=== PATIENT | female | born 1950 | race Caucasian/White ===

== ENCOUNTER 2020-03-06 19:53 | Emergency (ER) | payer MEDICARE, OTHER, SELFPAY ==
[2020-03-06 20:11] VITALS: BP 129/72; PULSE 71; RESP 16; TEMP 37.2; O2SAT 97; BMI 27.4
--- NOTE | 2020-03-06 20:29 | W.ED.FEMALGU ---
HPI - Female Genitourinary General: Chief complaint: General Medical Stated complaint: possible uti Time Seen by Provider: 03/06/20 20:09 Source: patient Mode of arrival: ambulatory Limitations: no limitations History of Present Illness: HPI Narrative: Patient is a 69-year-old female who presents to ED today with a complaint of dysuria over the past 8 months. Patient also complains of some lower pelvic pain that again has been present over the past same period of time. She has never sought any form of evaluation for this. Patient denies hematuria, urinary urgency or frequency. She is not having any flank pain or fevers. She denies vaginal discharge. When asked about vaginal discharge she tells me she is not sure as she often does not wear underwear so cannot tell. 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 She has not noticed any vaginal lesions. Patient is not sexually active. During my examination she gets very tearful and tells me she lost her 2 months ago and has had a hard time dealing with his . She reports she is not seeking help or inpatient psychiatric hospitalization. She tells me she is not suicidal or homicidal. Associated symptoms: Reports vaginal discharge (unknown); Deny abdominal pain, headache(s) or nausea Review of Systems Const: Denies: fever(s) or chills Card: Denies: chest pain Resp: Denies: dyspnea GI: Denies: abdominal pain, nausea, vomiting, diarrhea, rectal swelling, change in stool character, hematochezia, melena or white/light colored stool : Reports: dysuria, urinary urgency, vaginal odor (unknown), vaginal discharge (unknown) and pelvic pain; Denies: flank pain, difficulty voiding, urinary frequency, urinary hesitancy, dribbling, oliguria, urinary incontinence, genital lesions, genital pruritis or vaginal bleeding Musc: Denies: neck pain, back pain, extremity pain, extremity swelling, joint pain or joint swelling Skin/Breast: Denies: rash Neuro: Denies: headache(s), numbness in extremities, weakness in extremities or sensory changes Psych: Reports: anxiety, depression and hopelessness; Denies: mood swings, paranoia, visual hallucinations, auditory hallucinations, suicidal ideation or homicidal ideation PFS ED PFSH: Social History Smoking and tobacco status: never smoked Physical Exam Const: COMMON NORMALS: no acute distress, average body habitus, patient oriented x3, no limitations, healthy appearing, alert and well nourished ORIENTATION/CONSCIOUSNESS: Yes awake, Yes oriented to person, Yes oriented to place and Yes oriented to time OTHER: odorous/several flies around her-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 HENMT: COMMON NORMALS: normocephalic and atraumatic HEAD & SCALP: normocephalic and atraumatic Resp: COMMON NORMALS: normal respiratory effort and clear to auscultation bilaterally AUSCULTATION: clear to auscultation bilaterally Cardio: COMMON NORMALS: regular rate and regular rhythm RATE: regular rate RHYTHM: regular rhythm GI: COMMON NORMALS: Normal to inspection, nondistended, normoactive bowel sounds present, Soft to palpation, non-tender, No hepatosplenomegaly present and no masses PALPATION: Yes Soft to palpation and Yes No hepatosplenomegaly present : COMMON NORMALS: Yes no CVA tenderness, Yes normal external appearance and Yes normal appearance of the vagina BLADDER/KIDNEY EXAM: Yes no CVA tenderness EXTERNAL FEMALE EXAM: Yes normal appearance of the urethra OTHER: speculum was barely able to be inserted into vaginal canal until patient instructed me to stop due to discomfort; I did visualize what appeared to be abnormal tissue present to superior portion of canal and cervix had abnormal appearance as well however again I was only able to visualize for 1-2 seconds before patient instructed me to remove instruments; bimanual not performed; swabs were not able to be obtained; she refused in and out cath Back/Pelvis: COMMON NORMALS: no CVA tenderness Extremity: COMMON NORMALS: normal to inspection GENERAL: Yes normal exam except as noted Neuro: ANGELO COMA SCALE: document GCS findings Angelo coma scale eye opening: Spontaneous Angelo coma scale verbal response: Orientated [place] coma scale motor response: Obey commands Angelo coma scale total score: 15 COMMON NORMALS: patient oriented x3 SENSORIUM/ORIENTATION: Yes alert, Yes oriented to person, Yes oriented to place and Yes oriented to time Psych: COMMON NORMALS: mental status grossly normal, Normal thought process present, cooperative, speech normal, activity/motor behavior normal, denies hallucinations, denies homicidal ideation and denies suicidal ideation ATTITUDE: Yes calm ACTIVITY/MOTOR BEHAVIOR: Yes appropriate eye contact SPEECH: Yes normal speech MOOD & AFFECT: Yes depressed mood, Yes sad and Yes Other affect and mood findings present (tearful at times) THOUGHT PROCESS: Normal thought process present THOUGHT CONTENT: Yes Normal thought content present ATTENTION/CONCENTRATION: Yes attention grossly intact and Yes concentration grossly intact MEMORY/COGNITION: Yes memory grossly intact and Yes cognition grossly intact INSIGHT: Good insight present (Psych) JUDGEMENT: Good judgement present (Psych) Skin: COMMON NORMALS: no rashes or lesions noted GENERAL SKIN EXAM: no rashes or lesions noted Course Vital Signs: Vital signs: Vital Signs Temperature 99.0 F 03/06/20 20:11 Pulse Rate 71 03/06/20 20:11 Respiratory Rate 16 03/06/20 20:11 Blood Pressure 129/72 03/06/20 20:11 Pulse Oximetry 97 03/06/20 20:11 MDM - Female MDM Narrative: Medical decision making narrative: patient tried to give urine sample but only 1ml was obtained and could not be ran; she adamantly refuses in and out cath several times; she was not very cooperative for recurrent attempts to gain a urine specimen; she refused for pelvic exam to be completed due to discomfort; she frequently states she is under too much stress and these tests/procedures are just too much right now ; I offered her several times for admission to [facility] but patient refuses; I will have set her up with [facility] for therapy/counseling for the grief she is having with her 's ; 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 Follow up with gynecology regarding your pelvic exam. Follow [facility] with [facility] about therapy regarding the of your . Return to the ED immediately for any thoughts of wanting to harm yourself. Discharge Date/Time: 03/06/20 21:37 Coding Level of Care Code ED Quality Assurance Technician for Gabriele Fwd Exam Comprehensive
--- NOTE | 2020-03-06 21:23 | PC.NURSE ---
pt is very tearful and has possible flight of ideas. unable to continue a train of thought and appears to have difficulty completing basic tasks such as putting on shoes with out becoming distracted. refused in and out catheter for urine sample. pts states her recently and she [place]. pt has been putting of seeking care for her perineum pain for the past 8 months.
--- NOTE | 2020-03-07 10:50 | DCPLANNER ---
utilities manager had message to schedule a follow up appointment for patient with [facility] and [facility]. utilities manager called [facility], gave clinic patients information, was told that it would be printed and reviewed. Clinic will call patient with appointment information. utilities manager called patient, informed her that a referral to [facility] had been made for patient, and asked her if she had ever been seen at [facility]. Patient stated that she has not been seen at [facility] in the past. utilities manager told patient how to go about starting services at [facility]. utilities manager explained that patient can go to [facility] and complete a walk in assessment, and gave patient the phone number to [facility].
--- NOTE | 2020-03-13 08:50 | DCPLANNER ---
Patient has a follow up appointment scheduled with , March 27, 2020 at 2:[address] Rucker. Clinic will call patient with appointment information.
--- NOTE | 2020-04-01 11:23 | DCPLANNER ---
Patient did attend follow up appointment scheduled with [facility].
== END 2020-03-06 21:37 | disposition home or self-care (01) ==
PROVIDERS: Emergency Provider Physician Assistant
DX: R30.0 Dysuria (principal); F43.20 Adjustment disorder, unspecified
CPT/HCPCS: 12345; 99281; 99282; E0352

== ENCOUNTER → 2020-03-17 14:01 | Outpatient (BNVA) | payer MEDICARE, OTHER, SELFPAY | PROVIDERS: PCP Family Medicine; Visit Provider Family Medicine | DX: F43.20 Adjustment disorder, unspecified (principal); N39.3 Stress incontinence (female) (male) | CPT/HCPCS: 81000 ==

== ENCOUNTER → 2020-03-19 11:08 | Outpatient (BNVA) | payer MEDICARE, SELFPAY | PROVIDERS: PCP Family Medicine; Visit Provider Family Medicine | DX: R10.2 Pelvic and perineal pain (principal); N89.8 Other specified noninflammatory disorders of vagina | CPT/HCPCS: 84450; 86592; 87070; 87077; 87186; 87806 ==

== ENCOUNTER → 2020-04-23 10:14 | Outpatient (BNVA) | payer MEDICARE, OTHER, SELFPAY | PROVIDERS: PCP Family Medicine; Visit Provider Family Medicine | DX: Z13.6 Encounter for screening for cardiovascular disorders (principal); E03.9 Hypothyroidism, unspecified | CPT/HCPCS: 80053; 80061; 82607; 82746; 84443; 85025 ==

== ENCOUNTER 2021-07-30 13:53 | Emergency (ER) | payer MEDICARE, OTHER, SELFPAY ==
[2021-07-30] VITALS (7 sets, daily range): BP systolic 103–121; BP diastolic 57–69; PULSE 64–95; RESP 18–24; TEMP 37.5; O2SAT 92–98; BMI 25.7
--- NOTE | 2021-07-30 16:28 | ED_ITS ---
HPI - SOB/Dyspnea General: Chief Complaint: Shortness of Breath/Dyspnea Stated Complaint: Cough, Weak, Difficulty Breathing, MAGANA Time Seen by Provider: 07/30/21 16:28 History of Present Illness: HPI Narrative: Ms. Harrison is a 71-year-old lady without significant past medical history presents emergency department due to respiratory symptoms. Symptom onset was approximately 1 week ago. Initially she endorses congestion, generalized malaise, and mild cough however symptoms have gradually worsened since that time. She now notes marked symptoms that are severe with activity. She has night sweats, fevers, fatigue and shortness of breath on exertion. She has chest aching with exertion which occurred earlier today. Review of Systems General: Reports: 10 or more systems reviewed and unremarkable except in HPI and below PFSH ED PFSH: Medical History (Updated 07/30/21 @ 21:04 by Osmin Avila MD) Hypothyroid Surgical History H/O tubal ligation History of mandibular surgery Family History Sister Breast cancer, Onset Age: 35 Thyroid condition Mother CAD (coronary artery disease) Stroke Thyroid condition Family/Other Breast cancer, Onset Age: 60 maternal aunt maternal great aunt Grandmother Breast cancer, Onset Age: 98 maternal Hypertension maternal Father Diabetes Denies family history of Clotting disorder Hyperlipidemia Anesthesia complication Bleeding disorder Social History Smoking and tobacco status: never smoked Alcohol intake: current Alcohol intake frequency: holidays/special occasions only Alcohol type: beer Physical Exam Narrative: EXAM NARRATIVE: GENERAL/CONSTITUTIONAL -mildly ill-appearing. No acute distress. Eyes - PERRL, no conjunctival injection ENMT - poor dentition, areas of localized increased erythema however no definitive fluid collection or fluctuance identified. Atraumatic external nose and ears. Moist mucous membranes NECK - supple. trachea midline CARDIOVASCULAR - regular rate and rhythm. RESPIRATORY -coarse breath sounds throughout. Mild tachypnea without significant respiratory distress. ABDOMEN/GI - Nontender/Nondistended. MSK - Extremities without obvious deformity or tenderness to palpation SKIN - Warm, Dry NEURO - alert and appropriately oriented. Moves all extremities equally. Course ED course: - Patient was seen and evaluated by me at bedside - Patient placed on cardiac monitors, IV access obtained - Initial evaluation notable for mildly ill appearance, no acute distress. -Symptom treatment ordered - Labs notable for no leukocytosis, near baseline anemia which is macrocytic. No significant metabolic abnormalities to explain patient's symptoms. Procalcitonin negative. Flu and Covid negative. - Imaging notable for no acute finding noted on chest x-ray, patient's complaint of symptoms is disproportionate to finding and given clinical assessment additional imaging warranted. CTA also negative. - Upon serial reexamination after treatment the patient was improved - Based on patient history, evaluation, labs, and imaging as interpreted the most likely cause of the patient's condition is unclear. She does have what appears to be infected dental caries without abscess drainable fluid collections which will be treated with antibiotics. - The results of ED evaluation were discussed with the patient including prescriptions and/or symptomatic cares (if applicable) including appropriate and responsible use, followup plan, and return precautions. The patient verbalized understanding and felt safe for discharge. - Patient discharged in satisfactory condition. Vital Signs: Vital signs: Vital Signs Temperature 99.5 F 07/30/21 14:13 Pulse Rate 86 07/30/21 21:26 Respiratory Rate 22 H 07/30/21 21:26 Blood Pressure 121/69 07/30/21 21:26 Pulse Oximetry 93 07/30/21 21:26 MDM - SOB/Dyspnea Medical Records: Attestation: I reviewed the patient's medical records. Lab Data: Attestation: I reviewed the patient's lab results. Labs: Lab Results 07/30/21 07/30/21 07/30/21 17:14 17:14 17:25 WBC 5.3 10^3/uL 10^3/ uL (4.0-10.0) RBC 2.73 10^6/uL L 10 ^6/uL (4.1-5.3) Hgb 9.9 g/dL L g/dL (11.5-15.3) Hct 30.2 % L % (37.0-47.0) MCV 110.6 fl H fl (81-99) MCH 36.3 pg H pg (28.0-34.0) MCHC 32.8 g/dL g/dL (30.0-36.0) RDW 16.0 % H % (12.1-15.1) Plt Count 295 10^3/cmm 10^3 /cmm (130-400) MPV 10.7 fL H fL (7.4-10.4) Neut % (Auto) 74.3 % % Lymph % (Auto) 15.3 % % [place] % (Auto) 8.1 % % Eos % (Auto) 1.1 % % Baso % (Auto) 0.6 % % Neut # (Auto) 3.92 10^3/uL 10^3 /uL (1.8-7.7) Lymph # (Auto) 0.8 10^3/uL 10^3/ uL (0.8-4.8) [place] # (Auto) 0.4 10^3/uL 10^3/ uL (0.2-0.9) Eos # (Auto) 0.1 10^3/uL 10^3/ uL (0.0-0.8) Baso # (Auto) 0.0 10^3/uL 10^3/ uL (0.0-0.1) Nucleated RBC % (a uto) 0 % % Nucleated RBCs # 0.0 /100WBC /100W BC Sodium Potassium Chloride Carbon Dioxide Anion Gap BUN Creatinine GFR Calculation Glucose Calculated Osmolal ity Lactic Acid Calcium Total Bilirubin AST ALT Alkaline Phosphata se Troponin T Baselin e Troponin T 120 Min [place] Delta Troponin T C-Reactive Protein NT-Pro-B Natriuret Pep Total Protein Albumin Globulin Procalcitonin TSH Nasal/Oral COVID-1 9 PCR Not detected Influenza Type A A g Negative (Negative) Influenza Type B A g Negative (Negative) 07/30/21 07/30/21 07/30/21 17:25 17:25 17:25 WBC RBC Hgb Hct MCV MCH MCHC RDW Plt Count MPV Neut % (Auto) Lymph % (Auto) [place] % (Auto) Eos % (Auto) Baso % (Auto) Neut # (Auto) Lymph # (Auto) [place] # (Auto) Eos # (Auto) Baso # (Auto) Nucleated RBC % (a uto) Nucleated RBCs # Sodium 137 mmol/L mmol/L (136-145) Potassium 4.2 mmol/L mmol/L (3.5-5.1) Chloride 102 mmol/L mmol/L (98-107) Carbon Dioxide 24 mmol/L mmol/L (22-29) Anion Gap 15.2 (5-19) BUN 9 mg/dL mg/dL (8-23) Creatinine 0.9 mg/dL mg/dL (0.5-0.9) GFR Calculation 62.1 mL/min L mL/ min (90-130) Glucose 111 mg/dL mg/dL (65-115) Calculated Osmolal ity 283 mOsm/kg L mOs m/kg (285-295) Lactic Acid 0.7 mmol/L mmol/L (0.5-2.2) Calcium 8.6 mg/dL mg/dL (8.5-10.5) Total Bilirubin 0.7 mg/dL mg/dL (0.15-1.2) AST 14 U/L U/L (0-32) ALT 12 U/L U/L (0-33) Alkaline Phosphata se 59 IU/L IU/L (35-105) Troponin T Baselin e 10 ng/L ng/L (0-10) Troponin T 120 Min [place] Delta Troponin T C-Reactive Protein 1.0 mg/L mg/L (0.0-4.9) NT-Pro-B Natriuret Pep 197 pg/mL H pg/mL (0-125) Total Protein 6.3 g/dL L g/dL (6.6-8.7) Albumin 4.0 g/dL g/dL (3.5-5.2) Globulin 2.3 g/dL g/dL (1.3-4.6) Procalcitonin 0.12 ng/mL ng/mL (0-0.5) TSH 0.93 uIU/mL uIU/m L (0.27-4.20) Nasal/Oral COVID-1 9 PCR Influenza Type A A g Influenza Type B A g 07/30/21 20:01 WBC RBC Hgb Hct MCV MCH MCHC RDW Plt Count MPV Neut % (Auto) Lymph % (Auto) [place] % (Auto) Eos % (Auto) Baso % (Auto) Neut # (Auto) Lymph # (Auto) [place] # (Auto) Eos # (Auto) Baso # (Auto) Nucleated RBC % (a uto) Nucleated RBCs # Sodium Potassium Chloride Carbon Dioxide Anion Gap BUN Creatinine GFR Calculation Glucose Calculated Osmolal ity Lactic Acid Calcium Total Bilirubin AST ALT Alkaline Phosphata se Troponin T Baselin e Troponin T 120 Min [place] 9.53 ng/L ng/L (0-10) Delta Troponin T -0.47 ABS# L ABS# (0-10) C-Reactive Protein NT-Pro-B Natriuret Pep Total Protein Albumin Globulin Procalcitonin TSH Nasal/Oral COVID-1 9 PCR Influenza Type A A g Influenza Type B A g EKG Data^: EKG 1: Attestation: I personally reviewed and interpreted this EKG as follows: EKG Interpretation Date: 07/30/21 EKG interpretation time: 16:38 Interpretation: Twelve-lead EKG shows a regular rhythm at a rate of 100. AK interval 143, QRS duration 84, QTc 372. Normal axis. Interpretation: Sinus rhythm. EKG 2: Attestation: I personally reviewed and interpreted this EKG as follows: EKG Interpretation Date: 07/30/21 EKG interpretation time: 20:22 Interpretation: Twelve-lead EKG shows a regular rhythm at a rate of 90. AK interval 145, QRS duration 78, QTc 372. Normal axis. Interpretation: Sinus rhythm. Discharge Plan Discharge Patient Disposition: Home Clinical Impression: Shortness of breath, URI (upper respiratory infection), Dental caries Condition: Stable Prescriptions: New Augmentin 875-125 mg tablet 1 tab PO Q12H Qty: 14 RF: 0 No Action metronidazole 500 mg tablet 500 mg PO BID 14 Days Qty: 28 RF: 0 metronidazole [Flagyl] 500 mg tablet 500 mg PO BID 14 Days Qty: 28 RF: 0 ampicillin 500 mg capsule 500 mg PO QID 5 Days Qty: 20 RF: 0 levothyroxine [Synthroid] 50 mcg tablet 50 mcg PO DAILY Qty: 90 RF: 1 Discharge Orders: Discharge ED (Routine); Ordered 07/30/21 Ordered By: Osmin Avila Referrals: Maryjo Sylvester DO [Physician] - Discharge Diet: Usual diet Discharge Activity: Increase activity as tolerated Patient Instructions: Dental Caries (Cavities), Cold Symptoms (ED), Shortness of Breath (ED), Opioid Safety Activity Restrictions/Additional Instructions: Thank you for visiting the emergency department. You were seen and evaluated for shortness of breath and generalized malaise. The exact cause of your symptoms is unclear as labs were reassuring and imaging did not show any obvious cause. It is still possible that you have a viral syndrome. Additionally, given increased pain there may be small amounts of infection in your dental caries. You will be given a prescription for symptom management as well as antibiotics. Please follow-up with your primary care provider. Please do not combine the cough syrup with any other sedating medication, do not operate machinery or drive while under the influence of this, watch for side effects including WOODEN BOX MAKER depression. Return to emergency department for worsening symptoms or anything else that you are concerned about a feel needs emergency department evaluation. Coding Level of Care Code ED E Commerce Developer for Gabriele Fuchs
--- NOTE | 2021-07-30 16:38 | XRR_ITS ---
PROCEDURE INFORMATION: Exam: XR Chest Exam date and time: 07/30/2021 4:38 PM Age: 71 years old Clinical indication: Cough and shortness of breath; Additional info: SOB, cough TECHNIQUE: Imaging protocol: XR of the chest. Views: 1 view. Total images: 1 COMPARISON: No relevant prior studies available. FINDINGS: Lungs: No visible active interstitial or alveolar airspace disease. Suspected component of COPD/chronic bronchitis. Pleural spaces: No pleural effusion. No pneumothorax. Heart/Mediastinum: Cardiac structures and configuration with arteriosclerosis. Bones/joints: Unremarkable for age. XR/XR chest 1V portable [id number] IMPRESSION: Nonacute. Radiation Dose CTDIVOL = (mGy): DLP = (mGy-cm)
--- NOTE | 2021-07-30 16:39 | ECG_ITS ---
[facility] Test Date: 2021-07-30 Pat Name: Dina Harrison Department: Room: Gender: Female Dirt Supervisor: : 1950 Requested By: Osmin Avila Order Number: [id number] Indy MD: Magali Lou M.D. Measurements Intervals [place] Rate: 100 P: 73 MO: 143 QRS: 54 QRSD: 84 T: 70 QT: 315 QTc: 407 Interpretive Statements SINUS TACHYCARDIA ABNORMAL RHYTHM ECG No previous ECG available for comparison Electronically Signed On 07-30-2021 22:46:06 SALES TRAINER by Magali Lou M.D. [id number]
[2021-07-30] MEDS: sodium chloride 0.9% 1,000 ML 999 ML IV ×2 (17:10→20:35)
--- NOTE | 2021-07-30 17:19 | CTR_ITS ---
PROCEDURE INFORMATION: Exam: CTA Chest With Contrast Exam date and time: 07/30/2021 5:19 PM Age: 71 years old Clinical indication: Cough and shortness of breath; Additional info: Hypoxemia, SOB, chest pain TECHNIQUE: Imaging protocol: Computed tomographic angiography of the chest with contrast. 3D rendering (Not supervised by radiologist): MIP and/or 3D reconstructed images were created by the technologist. Total images: 880 Radiation optimization: All CT scans at this facility use at least one of these dose optimization techniques: automated exposure control; mA and/or kV adjustment per patient size (includes targeted exams where dose is matched to clinical indication); or iterative reconstruction. Contrast material: OMNI 350; Contrast volume: 62 ml; Contrast route: INTRAVENOUS (IV); COMPARISON: CR (CHEST, ) 07/30/2021 4:48 PM RADIATION DOSE METRICS: Total DLP (mGy-cm): 509.03 FINDINGS: Pulmonary arteries: No visible evidence of pulmonary embolism/pulmonary arterial thrombus. Aorta: The thoracic aorta is nonaneurysmal. No visible intimal flap or dissection. Mild arteriosclerosis. Lungs: No visible active interstitial or alveolar airspace disease. Minimal dependent atelectasis lingula. No visible significant restrictive or reactive airway disease. Pleural spaces: No pneumothorax. No pleural effusion. Heart: Cardiac size within normal limits. Left ventricular prominence. No visible pericardial effusion. No visible significant coronary artery disease. Lymph nodes: No visible active mediastinal or hilar lymphadenopathy. Diaphragm: Small hiatal hernia. Bones/joints: No visible active or acute osseous pathology. Mild scoliotic curvature. Age-appropriate mild degenerative disease of the spine. Soft tissues: Unremarkable. Other findings: Respiratory motion artifact. CT/CT angio chest PE protcl [id number] IMPRESSION: No visible evidence of pulmonary embolism/pulmonary arterial thrombus. Radiation Dose CTDIVOL = (mGy): DLP = 509.03 (mGy-cm)
[2021-07-30 17:54] LABS: Basophils % 0.6 %; Eosinophils # 0.1 10^3/uL (0.0-0.8); Eosinophils % 1.1 %; Hematocrit 30.2 % (37.0-47.0); Hemoglobin 9.9 g/dL (11.5-15.3); Lymphocytes # 0.8 10^3/uL (0.8-4.8); Lymphocytes % 15.3 %; Mean Corpuscular HGB Conc 32.8 g/dL (30.0-36.0); Mean Corpuscular Hemoglobin 36.3 pg (28.0-34.0); Mean Corpuscular Volume 110.6 fl (81-99); Mean Platelet Volume 10.7 fL (7.4-10.4); Monocytes # 0.4 10^3/uL (0.2-0.9); Monocytes % 8.1 %; Neutrophils # 3.92 10^3/uL (1.8-7.7); Neutrophils % 74.3 %; Nucleated Red Blood Cells % 0 %; Platelet Count 295 10^3/cmm (130-400); Red Blood Count 2.73 10^6/uL (4.1-5.3); White Blood Count 5.3 10^3/uL (4.0-10.0)
[2021-07-30 17:56] LABS: Influenza A by IFA Negative (Negative); Influenza B by IFA Negative (Negative)
[2021-07-30 18:25] LABS: Troponin(5th) Baseline 10 ng/L (0-10)
[2021-07-30 18:31] LABS: NT Pro B Type Natriuretic Pept 197 pg/mL (0-125); Procalcitonin 0.12 ng/mL (0-0.5); Thyroid Stimulating Hormone 0.93 uIU/mL (0.27-4.20)
[2021-07-30 18:42] LABS: Alanine Aminotransferase 12 U/L (0-33); Alkaline Phosphatase 59 IU/L (35-105); Anion Gap 15.2 (5-19); Aspartate Amino Transferase 14 U/L (0-32); Blood Urea Nitrogen 9 mg/dL (8-23); Calcium 8.6 mg/dL (8.5-10.5); Carbon Dioxide 24 mmol/L (22-29); Chloride 102 mmol/L (98-107); Globulin 2.3 g/dL (1.3-4.6); Glomerular Filtration Rate 62.1 mL/min (90-130); Glucose 111 mg/dL (65-115); Osmolality Calculated 283 mOsm/kg (285-295); Potassium 4.2 mmol/L (3.5-5.1); Sodium 137 mmol/L (136-145); Total Bilirubin 0.7 mg/dL (0.15-1.2); Total Protein 6.3 g/dL (6.6-8.7)
[2021-07-30 18:45] LABS: Lactic Sepsis W/Reflex 0.7 mmol/L (0.5-2.2)
[2021-07-30] MEDS: iohexol 350 mg/mL 100 mL Btl IV (19:10)
[2021-07-30] MEDS: ketorolac 30 mg/mL INJ 15 MG IVP (20:00)
[2021-07-30] MEDS: acetaminophen 325 mg Tablet 650 MG PO (20:35)
[2021-07-30 20:41] LABS: Troponin 5 2HR 9.53 ng/L (0-10)
[2021-07-30 20:42] LABS: Troponin 5 2HR Delta -0.47 ABS# (0-10)
--- NOTE | 2021-07-30 22:39 | ECG_ITS ---
[facility] Test Date: 2021-07-30 Pat Name: Dina Harrison Department: Room: Gender: Female Stencil Inspector: : 1950 Requested By: Osmin Avila Order Number: [id number] [place] MD: Magali Lou M.D. Measurements Intervals [place] Rate: 90 P: 38 SC: 145 QRS: 42 QRSD: 78 T: 64 QT: 324 QTc: 397 Interpretive Statements SINUS RHYTHM POSSIBLE RIGHT VENTRICULAR CONDUCTION DELAY [RSR (QR) IN V1/V2] Compared to ECG 07/30/2021 16:20:56 Sinus tachycardia no longer present Electronically Signed On 07-30-2021 23:00:51 COMPUTING TUTOR by Magali Lou M.D. [id number]
[2021-07-31 17:03] LABS: Coronavirus Test Green County Not Detected
--- NOTE | 2021-08-03 13:53 | PC.NURSE ---
Patient notified of negative COVID test
== END 2021-07-30 21:28 | disposition home or self-care (01) ==
PROVIDERS: Emergency Provider Emergency Medicine; PCP Family Medicine
DX: J06.9 Acute upper respiratory infection, unspecified (principal); R06.02 Shortness of breath; K02.9 Dental caries, unspecified; Z20.822 Contact with and (suspected) exposure to COVID-19
CPT/HCPCS: 71045; 71275; 80053; 83605; 83880; 84145; 84443; 84484; 85025; 86140; 87040; 87635; 87804; 93005; 96361; 96374; 99284; J1885; J7030; Q9967

== ENCOUNTER 2022-01-22 20:09 | Inpatient (IN) | payer MEDICARE, SELFPAY ==
[2022-01-22 20:12] VITALS: BP 124/63; PULSE 104; RESP 18; TEMP 37.6; O2SAT 85; BMI 26.1
--- NOTE | 2022-01-22 21:02 | XRR_ITS ---
PROCEDURE INFORMATION: Exam: XR Chest Exam date and time: 01/22/2022 9:10 PM Age: 71 years old Clinical indication: Cough and dyspnea and shortness of breath; Patient HX: C/O cough with SOB and dyspnea. Was 89 percent 02 on 4l. History of asthma. TECHNIQUE: Imaging protocol: XR of the chest. Views: 1 view. COMPARISON: CR (CHEST, ) 01/21/2022 10:52 PM FINDINGS: Lungs: The lung bases are suboptimally assessed due to technique however the upper lungs are clear of focal consolidation. Tiny linear opacity lateral left mid lung zone is likely atelectasis. Pleural spaces: Unremarkable. No pleural effusion. No pneumothorax. Heart/Mediastinum: Cardiac silhouette appears normal in size. No obvious vascular congestion. Bones/joints: No acute osseous findings. Other findings: Single view was submitted. XR/XR chest 1V portable [id number] IMPRESSION: No obvious acute consolidation. Suboptimal lung base assessment. Followup including lateral view may be obtained if clinically indicated.
--- NOTE | 2022-01-22 21:20 | P.HP_ITS ---
Providers/Chief Complaint Chief Complaint: SOB History of Present Illness Dina Harrison is a 71 year old female who does not use oxygen at baseline, [place], takes care of her horses, cats and dogs, lives alone, presented with chief complaint of worsening shortness of breath.? Stating that her symptoms started on Tuesday, she has not been exposed to anyone with COVID-19, she goes to [employer] on Sundays people do not wear any mask.? Her symptoms started on Tuesday with dry hacking cough which gradually got worse, today she is bringing up some white sputum, she is endorsing subjective fever, 2 episodes of loose stools, no chest pain.? She is endorsing multiple episodes of emesis with nausea, vaginal discharge, as well.? No strokelike features.? 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 She is also endorsing mold growing in her car which is attributing to recent spillage of fluid on the car mat which she was not able to clean. In the ER she is febrile requiring 2 L of oxygen, I have requested D-dimer, no leukocytosis, x-rays unremarkable, will request COVID PCR flu and COVID antigen is negative, will add doxycycline as her symptoms are consistent with atypical pneumonitis, high risk for fungal infection as well Patient left medical advice yesterday came back for worsening of hypoxia, palpitations, dehydration and recurrent vomiting. Review of Systems Const: Reports: fever(s), chills, body aches, fatigue and malaise Eyes: Denies: change in vision ENMT: Denies: throat pain Card: Reports: palpitations and dyspnea on exertion; Denies: chest pain Resp: Reports: dyspnea, productive cough, wheezing, change in phlegm color and chest congestion GI: Reports: abdominal pain, nausea and vomiting Musc: Denies: neck pain Skin/Breast: Denies: rash Neuro: Denies: headache(s) Psych: Reports: anxiety Endo: Denies: polyuria Joss/Lymph: Denies: easy bruising All/Imm: Denies: urticaria Medications/Allergies Home Medications Medication Instructions Recorded Confirmed Last Taken Type levothyroxine 50 mcg tablet 50 mcg PO DAILY #90 tab 05/06/20 06/02/20 Unknown Rx (Synthroid) ampicillin 500 mg capsule 500 mg PO QID 5 Days #20 cap 06/02/20 06/02/20 Unknown Rx metronidazole 500 mg tablet 500 mg PO BID 14 Days #28 tab 06/02/20 06/02/20 Unknown Rx metronidazole 500 mg tablet 500 mg PO BID 14 Days #28 tab 06/02/20 06/02/20 Unknown Rx (Flagyl) amoxicillin 875 mg-potassium 1 tab PO Q12H #14 tab 07/30/21 Unknown Rx clavulanate 125 mg tablet (Augmentin) Allergies Allergy/AdvReac Type Severity Reaction Status Date / Time milk Allergy Severe anaphylaxis Verified 06/02/20 13:49 nylon Allergy Severe rash Verified 06/02/20 13:49 codeine Allergy Unknown Verified 07/30/21 21:13 lactase [From [employer]] Allergy ALGY-Anaphy Verified 06/02/20 13:49 laxis latex AdvReac Mild UNKNOWN Verified 06/02/20 13:49 PFSH Acute PFSH: Medical History Adjustment disorder BV (bacterial vaginosis) Dysuria Hypothyroid STD exposure Vaginal discharge Surgical History H/O tubal ligation History of mandibular surgery Family History Sister Breast cancer, Onset Age: 35 Thyroid condition Mother CAD (coronary artery disease) Stroke Thyroid condition Family/Other Breast cancer, Onset Age: 60 maternal aunt maternal great aunt Grandmother Breast cancer, Onset Age: 98 maternal Hypertension maternal Father Diabetes Denies family history of Clotting disorder Hyperlipidemia Anesthesia complication Bleeding disorder Social History Smoking and tobacco status: never smoked Alcohol intake: current Alcohol intake frequency: holidays/special occasions only Alcohol type: beer Vitals/I&O/Wt Last Vital Signs Temp 99.6 F 01/22/22 20:12 Pulse 104 H 01/22/22 20:12 Resp 18 01/22/22 20:12 BP 124/63 01/22/22 20:12 Pulse Ox 85 L 01/22/22 20:12 Weight last 48 hrs Weight 68.946 kg Physical Exam Narrative: Patient in distress because of generalized fatigue and malaise Requiring oxygen Bilateral breath sound with rhonchi and crackles Abdomen is soft Patient does have toxic appearance Disheveled appearance today Patient looks dehydrated No signs of edema Nonfocal neuro exam No signs of meningitis EOMI, PERRLA Awake and alert Oriented to time place and person S1, S2 sinus tachycardia A&P Assessment and plan (1) Upper respiratory infection: Status: Acute (2) Hypoxia: Status: Acute (3) Vaginal discharge: Status: Acute Plan Acute hypoxia No signs of sepsis My concern is related to atypical pneumonia Will request CT chest and D-dimer Will add doxycycline to ceftriaxone, would not use azithromycin for now Check sputum culture DuoNeb every 4 as needed My concern is also related to fungal infection considering exposure to mold in her car, she is also exposed to excreta of horses, cats and dogs Check beta D glucan/Fungitell She is full code She does not have any family, she [place] the [place], only person to be notified is the 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 the 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 [employer] Regular diet DVT prophylaxis Lovenox Will need home O2 evaluation before discharge Macrocytic anemia Hemoglobin stable around 10.5, check B12 and folic Previous levels were normal Vaginal discharge She has been getting metronidazole for her bacterial vaginosis Attestations Medical Necessity Statement*: Including less than 2 midnight stay in the hospital for evaluation management of atypical pneumonia Time Spent in Patient Care: 40mns Coding Level of Care Code Acute Disintegrator Operator for Gabriele Fuchs Diagnoses Upper respiratory infection J06.9 Hypoxia R09.02 Vaginal discharge N89.8
[2022-01-22 21:52] LABS: Basophils % 0.2 %; Hematocrit 29.9 % (37.0-47.0); Hemoglobin 9.7 g/dL (11.5-15.3); Lymphocytes # 0.6 10^3/uL (0.8-4.8); Lymphocytes % 5.2 %; Mean Corpuscular HGB Conc 32.4 g/dL (30.0-36.0); Mean Corpuscular Hemoglobin 34.9 pg (28.0-34.0); Mean Corpuscular Volume 107.6 fl (81-99); Mean Platelet Volume 12.6 fL (7.4-10.4); Monocytes # 0.5 10^3/uL (0.2-0.9); Monocytes % 4.5 %; Neutrophils # 10.25 10^3/uL (1.8-7.7); Neutrophils % 89.4 %; Nucleated Red Blood Cells % 0 %; Platelet Count 275 10^3/cmm (130-400); Red Blood Count 2.78 10^6/uL (4.1-5.3); Red Cell Distribution Width 18.8 % (12.1-15.1); White Blood Count 11.5 10^3/uL (4.0-10.0)
[2022-01-22 22:04] VITALS: BP 134/92; PULSE 102; RESP 37; O2SAT 94
[2022-01-22 22:13] LABS: Alanine Aminotransferase 14 U/L (0-33); Alkaline Phosphatase 47 IU/L (35-105); Anion Gap 15.5 (5-19); Aspartate Amino Transferase 17 U/L (0-32); Blood Urea Nitrogen 17 mg/dL (8-23); Calcium 9.2 mg/dL (8.5-10.5); Carbon Dioxide 25 mmol/L (22-29); Chloride 95 mmol/L (98-107); Creatinine Clr Calc Pharmacy 56.2507; Globulin 2.9 g/dL (1.3-4.6); Glomerular Filtration Rate 62.1 mL/min (90-130); Glucose 150 mg/dL (65-115); Osmolality Calculated 276 mOsm/kg (285-295); Potassium 4.5 mmol/L (3.5-5.1); Sodium 131 mmol/L (136-145); Total Bilirubin 0.7 mg/dL (0.15-1.2); Total Protein 6.9 g/dL (6.6-8.7)
[2022-01-22 22:14] LABS: Lactic Sepsis W/Reflex 1.5 mmol/L (0.5-2.2)
[2022-01-22 22:17] LABS: ABG PCO2 38.8 mmHg (35-45); ABG PH Result 7.44 (7.35-7.45); Arterial Blood Gas Hematocrit 29.6 % (37-47); Base Excess ABG 2.2 mmol/L (-2.0-2.0); Blood Gas Allen Test Pos; Blood Gas Sample Site Radial, left; Blood Gas Sample Type Arterial; HCO3 ABG 26.4 mmol/L (22-26); Oxygen Device NC; PO2 ABG 79.4 mmHg (80.0-100.0)
[2022-01-22 22:20] LABS: Procalcitonin 0.27 ng/mL (0-0.5)
[2022-01-22] MEDS: ipratropium-albuterol 3 mL Neb INHALATION (22:20)
[2022-01-22] MEDS: cefTRIAXone 1,000 MG in sodium chloride 0.9% (plus) 50 ML 100 MG IV (22:20)
[2022-01-22 22:21] VITALS: PULSE 87; RESP 24; O2SAT 93
[2022-01-22] MEDS: ondansetron 2 mg/ML SDV 2 mL 4 MG IVP (22:21)
--- NOTE | 2022-01-22 22:28 | CTR_ITS ---
PROCEDURE INFORMATION: Exam: CT Chest Without Contrast; Diagnostic Exam date and time: 01/22/2022 11:15 PM Age: 71 years old Clinical indication: Cough and dyspnea and shortness of breath; Patient HX: C/O persistent cough with SOB and dyspnea. Hypoxia. History of asthma. TECHNIQUE: Imaging protocol: Diagnostic computed tomography of the chest without contrast. Radiation optimization: All CT scans at this facility use at least one of these dose optimization techniques: automated exposure control; mA and/or kV adjustment per patient size (includes targeted exams where dose is matched to clinical indication); or iterative reconstruction. COMPARISON: CT angio chest PE protcl [id number] 07/30/2021 7:06 PM RADIATION DOSE METRICS: Total DLP (mGy-cm): 393.78 FINDINGS: Lungs: Mild bilateral central peribronchial thickening similar to previous exam. No significant bronchiectasis or significant airspace disease/ground-glass opacity. Small linear atelectasis-scarring in the lingular region. Pleural spaces: Unremarkable. No pneumothorax. No pleural effusion. Heart: No cardiomegaly. No pericardial effusion. Lymph nodes: No enlarged lymph nodes. Vasculature: Unremarkable. No aortic aneurysm. Diaphragm: Hiatal hernia measuring about 2 cm. Bones/joints: No acute findings. Soft tissues: No acute findings. CT/CT chest [facility] [id number] IMPRESSION: 1. Stable mild bilateral central peribronchial thickening without bronchiectasis or other significant lung parenchymal disease. Linear scarring-atelectasis in the lingular region is present. 2. Hiatal hernia.
[2022-01-22 22:34] VITALS: BMI 25.6
[2022-01-22 22:36] VITALS: BP 115/59; PULSE 107; RESP 22; TEMP 38.1; O2SAT 92
[2022-01-22 22:46] VITALS: O2SAT 93
[2022-01-22] MEDS: enoxaparin 40 mg/0.4 mL Syringe SUBCUT (23:01)
[2022-01-22] MEDS: lactated ringers 500 ML 999 ML IV (23:12)
[2022-01-22 23:50] VITALS: O2SAT 94
[2022-01-22] MEDS: sodium chloride 0.9% 1,000 ML 75 ML IV (23:52)
[2022-01-23] VITALS (15 sets, daily range): BP systolic 100–127; BP diastolic 52–78; PULSE 59–98; RESP 16–18; TEMP 36.1–37.2; O2SAT 90–99
[2022-01-23 05:10] LABS: Basophils % 0.2 %; Hematocrit 29.2 % (37.0-47.0); Hemoglobin 9.4 g/dL (11.5-15.3); Lymphocytes # 0.6 10^3/uL (0.8-4.8); Lymphocytes % 6.3 %; Mean Corpuscular HGB Conc 32.2 g/dL (30.0-36.0); Mean Corpuscular Hemoglobin 34.8 pg (28.0-34.0); Mean Corpuscular Volume 108.1 fl (81-99); Mean Platelet Volume 11.5 fL (7.4-10.4); Monocytes # 0.2 10^3/uL (0.2-0.9); Monocytes % 1.5 %; Neutrophils # 9.33 10^3/uL (1.8-7.7); Neutrophils % 91.4 %; Nucleated Red Blood Cells % 0 %; Platelet Count 241 10^3/cmm (130-400); Red Cell Distribution Width 19.1 % (12.1-15.1); White Blood Count 10.2 10^3/uL (4.0-10.0)
[2022-01-23 05:34] LABS: Anion Gap 14.6 (5-19); Blood Urea Nitrogen 16 mg/dL (8-23); Calcium 9.1 mg/dL (8.5-10.5); Carbon Dioxide 25 mmol/L (22-29); Chloride 102 mmol/L (98-107); Glomerular Filtration Rate 62.1 mL/min (90-130); Glucose 190 mg/dL (65-115); Magnesium 2.4 mg/dL (1.7-2.3); Osmolality Calculated 290 mOsm/kg (285-295); Potassium 4.6 mmol/L (3.5-5.1); Sodium 137 mmol/L (136-145)
[2022-01-23 05:40] LABS: Slide Review Slide Review Perform
[2022-01-23] MEDS: cefTRIAXone 1,000 MG in sodium chloride 0.9% (plus) 50 ML 100 MG IV (08:59)
[2022-01-23] MEDS: doxycycline 100 mg Tablet PO ×2 (09:00→18:04)
[2022-01-23] MEDS: levothyroxine 50 mcg Tablet PO (09:00)
[2022-01-23] MEDS: ipratropium-albuterol 3 mL Neb INHALATION ×3 (09:27→20:07)
--- NOTE | 2022-01-23 15:20 | PM.PN ---
Subjective Subjective: Ms. Harrison reports that she feels a little bit better today. She still having some shortness of breath, and some fatigue. States that she is trying to eat some. She has been voiding and toileting without problems. She denies other concerns at this time. Vitals/I&O/Wt Last Vital Signs Temp 98.5 F 01/23/22 10:54 Pulse 79 01/23/22 15:15 Resp 17 01/23/22 15:15 BP 105/52 01/23/22 10:54 Pulse Ox 97 01/23/22 15:15 01/23/22 01/23/22 01/23/22 06:59 14:59 22:59 Intake Total 650 / 700 620 / 620 Output Total 500 / 500 Balance 150 / 200 620 / 620 Weight last 48 hrs Weight 149 lb 3.2 oz Weight 152 lb Physical Exam Narrative: General: Cooperative patient in no apparent distress. Well developed. HEENT: Normocephalic, Atraumatic. External ears normal. Nasal passages patent without drainage. MMM. Resp: Lungs with scattered crackles. No wheezes or rhonchi. Good air movement bilaterally. Heart: Regular rate and rhythm. No rubs, gallops, murmurs. Abd: Soft, nontender, non-distended. Normal bowel sounds present. Extremities: No edema. No focal motor or sensory deficits. Cap refills less than 2 seconds. Skin: No rash or lesions on exposed areas. Data : 01/23/22 04:20 01/23/22 04:20 A&P Assessment and plan (1) Acute respiratory failure with hypoxia: Status: Acute (2) Atypical pneumonia: Status: Acute (3) Hypothyroid: Status: Chronic (4) Macrocytic anemia: Status: Acute Plan 71-year-old female admitted for acute hypoxic respiratory failure. Oxygen saturations have improved. She is currently on 2 L nasal cannula. D-dimer was normal. Her CRP was elevated to 23. She had a slight leukocytosis, predominantly neutrophils. Will continue Rocephin and doxycycline. Blood cultures are currently negative. We will continue to monitor. Unable to obtain sputum culture thus far. She does have a chronic macrocytic anemia. She has had B12 and folate checked previously and they were normal. Her hemoglobin has been stable for the last 2 years. Continue oxygen protocol. RAAT. Labs to evaluate for atypical organisms are still pending. We will plan for home O2 evaluation prior to discharge. O2: 2L N/C Diet: regular DVT PPx: Lovenox GI PPx: none IVF: NS @ 75 Attestations Medical Necessity Statement*: Patient will likely need greater than 2 midnights for continued treatment of acute respiratory failure, IV antibiotics, and risk for sudden clinical deterioration. Coding Level of Care Code Acute Assurance Manager for [facility] Diagnoses Acute respiratory failure with hypoxia J96.01 Hypothyroid E03.9 Atypical pneumonia J18.9 Macrocytic anemia D53.9
--- NOTE | 2022-01-23 15:42 | W.ED.SOB ---
HPI - SOB/Dyspnea General: Chief Complaint: Shortness of Breath/Dyspnea Stated Complaint: SOB Time Seen by Provider: 01/22/22 20:57 Source: patient History of Present Illness: HPI Narrative: 71 year old female who had been admitted to the hospital earlier in the morning. 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 She returns to the emergency department through the front door extremely short of breath. She is coughing and wheezing. She denies fever. MD elicited complaint: shortness of breath and cough Onset (ago): day(s) Context: recent illness Timing: constant and progressively worsening Severity: moderate Exacerbating factors: lying flat, exertion and coughing Relieving factors: oxygen Known history of: other Associated symptoms: Reports chest congestion, cough and nausea; Deny abdominal pain, chest pain, extremity pain, fever(s), hemoptysis or vomiting Treatment prior to arrival: none Related Data: Home oxygen amount: none Review of Systems Const: Denies: fever(s) ENMT: Denies: throat pain Card: Denies: chest pain Resp: Reports: dyspnea, non-productive cough and chest congestion; Denies: hemoptysis GI: Reports: nausea; Denies: abdominal pain or vomiting Musc: Denies: extremity pain PFSH ED PFSH: Medical History Adjustment disorder BV (bacterial vaginosis) Dysuria Hypothyroid STD exposure Vaginal discharge Surgical History H/O tubal ligation History of mandibular surgery Family History Sister Breast cancer, Onset Age: 35 Thyroid condition Mother CAD (coronary artery disease) Stroke Thyroid condition Family/Other Breast cancer, Onset Age: 60 maternal aunt maternal great aunt Grandmother Breast cancer, Onset Age: 98 maternal Hypertension maternal Father Diabetes Denies family history of Clotting disorder Hyperlipidemia Anesthesia complication Bleeding disorder Social History Smoking and tobacco status: never smoked Alcohol intake: current Alcohol intake frequency: holidays/special occasions only Alcohol type: beer Physical Exam Const: GENERAL APPEARANCE: cooperative, in distress and ill appearing HENMT: COMMON NORMALS: normocephalic, atraumatic and Normal external nose present HEAD & SCALP: normocephalic and atraumatic NOSE: Normal external nose present and Normal nares present Eye: COMMON NORMALS: Equal, round and reactive pupils present and EOMs intact bilaterally PUPIL: Yes Equal, round and reactive pupils present Chest: CHEST: Yes Symmetrical chest wall rise Resp: EFFORT & INSPECTION: Yes tachypneic, Yes respiratory distress, Yes labored, Yes Actively coughing, Yes retractions, Yes uses accessory muscles and Yes audible wheezes AUSCULTATION: rhonchi and wheezes Cardio: COMMON NORMALS: regular rhythm RATE: tachycardic RHYTHM: regular rhythm GI: COMMON NORMALS: Normal to inspection, nondistended, normoactive bowel sounds present Extremity: COMMON NORMALS: no pedal edema Neuro: SNEHA COMA SCALE: document GCS findings Sneha coma scale eye opening: Spontaneous Sneha coma scale verbal response: Confused [place] coma scale motor response: Obey commands [place] coma scale total score: 14 Course Vital Signs: Vital signs: Vital Signs Temperature 98.9 F 01/23/22 15:34 Pulse Rate 85 01/23/22 15:34 Respiratory Rate 16 01/23/22 15:34 Blood Pressure 115/64 01/23/22 15:34 Pulse Oximetry 90 01/23/22 15:34 MDM - SOB/Dyspnea Medical Decision Making 71 year old female in respiratory failure. She has significant hypoxia, and is requiring 6 liters of oxygen currently. Chest X ray does not reveal an infiltrate. Laboratory is not terribly remarkable. She does have some Bronchiectasis/peribronchial thickening. She'll be admitted for respiratory failure for oxygen support, pulmonary toilet, antibiotics, steroids, etc. Lab Data : 01/23/22 04:20 01/23/22 04:20 Labs/Radiology: Radiology Impressions Chest X-Ray 01/22/22 21:02 IMPRESSION: No obvious acute consolidation. Suboptimal lung base assessment. Followup including lateral view may be obtained if clinically indicated. Chest CT 01/22/22 22:28 IMPRESSION: 1. Stable mild bilateral central peribronchial thickening without bronchiectasis or other significant lung parenchymal disease. Linear scarring-atelectasis in the lingular region is present. 2. Hiatal hernia. Discharge Plan Discharge Patient Disposition: Admitted As Inpatient Admit Provider: Joaquin Jiménez Clinical Impression: Acute respiratory failure with hypoxia Condition: Stable Coding Level of Care Code ED Pediatric Allergist for Gabriele Fuchs
[2022-01-23] MEDS: sodium chloride 0.9% 1,000 ML 75 ML IV (17:21)
[2022-01-23] MEDS: acetaminophen 500 mg Tablet PO (18:04)
[2022-01-23] MEDS: enoxaparin 40 mg/0.4 mL Syringe SUBCUT (22:39)
[2022-01-24] VITALS (13 sets, daily range): BP systolic 104–126; BP diastolic 63–78; PULSE 73–99; RESP 16–18; TEMP 36.4–37.2; O2SAT 91–99
[2022-01-24] MEDS: ipratropium-albuterol 3 mL Neb INHALATION ×4 (02:10→20:22)
[2022-01-24] MEDS: doxycycline 100 mg Tablet PO ×2 (09:16→18:21)
[2022-01-24] MEDS: levothyroxine 50 mcg Tablet PO (09:16)
[2022-01-24] MEDS: cefTRIAXone 1,000 MG in sodium chloride 0.9% (plus) 100 ML 200 MG IV (09:16)
[2022-01-24] MEDS: sodium chloride 0.9% 1,000 ML 75 ML IV ×2 (09:27→22:55)
--- NOTE | 2022-01-24 13:00 | P.PN_ITS ---
Subjective Subjective: Reports feeling better. Work of breathing has eased and she is off oxygen at this time. Reports that her appetite is improved. Denies problems with voiding or stooling. Denies other concerns at this time. Medications: Reviewed: Yes Vitals/I&O/Wt Last Vital Signs Temp 97.5 F L 01/24/22 11:56 Pulse 82 01/24/22 11:56 Resp 17 01/24/22 11:56 BP 107/63 01/24/22 11:56 Pulse Ox 93 01/24/22 11:56 01/23/22 01/24/22 01/24/22 22:59 06:59 14:59 Intake Total 1090 / 2710 890 / 3600 651.25 / 651.25 Output Total 600 / 600 Balance 490 / 2110 890 / 3000 651.25 / 651.25 Weight last 48 hrs Weight 149 lb 3.2 oz Weight 152 lb Physical Exam Narrative: General: Cooperative patient in no apparent distress. Well developed. HEENT: Normocephalic, Atraumatic. External ears normal. Nasal passages patent without drainage. MMM. Resp: Lungs with scattered crackles. No wheezes or rhonchi. Good air movement bilaterally. Heart: Regular rate and rhythm. No rubs, gallops, murmurs. Abd: Soft, nontender, non-distended. Normal bowel sounds present. Extremities: No edema. No focal motor or sensory deficits. Cap refills less than 2 seconds. Skin: No rash or lesions on exposed areas. Data : 01/23/22 04:20 01/23/22 04:20 A&P Assessment and plan (1) Atypical pneumonia: Status: Acute (2) Acute respiratory failure with hypoxia: Status: Acute (3) Hypoxia: Status: Acute (4) Hypothyroid: Status: Chronic Plan 71-year-old female admitted for acute hypoxic respiratory failure. Oxygen saturations have improved.? Currently on room air. Will continue Rocephin and doxycycline. Blood cultures are currently negative.? We will continue to monitor. She does have a chronic macrocytic anemia.? She has had B12 and folate checked previously and they were normal.? Her hemoglobin has been stable for the last 2 years. Continue oxygen protocol. RAAT. Labs to evaluate atypical organisms are still pending. We will plan for home O2 evaluation prior to discharge. O2: 2L N/C Diet: regular DVT PPx: Lovenox GI PPx: none IVF: NS @ 75 Attestations Medical Necessity Statement*: Patient will likely need greater than 2 midnights for continued treatment of acute respiratory failure, IV antibiotics, and risk for sudden clinical deterioration. 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
[2022-01-24] MEDS: acetaminophen 500 mg Tablet PO (20:06)
[2022-01-24] MEDS: enoxaparin 40 mg/0.4 mL Syringe SUBCUT (22:54)
[2022-01-25] VITALS (7 sets, daily range): BP systolic 120–129; BP diastolic 74–78; PULSE 67–81; RESP 13–17; TEMP 36.4–37; O2SAT 91–96
[2022-01-25] MEDS: ipratropium-albuterol 3 mL Neb INHALATION ×2 (02:14→09:34)
[2022-01-25 04:23] LABS: Basophils % 0.3 %; Eosinophils # 0.4 10^3/uL (0.0-0.8); Eosinophils % 7.4 %; Hematocrit 27.3 % (37.0-47.0); Hemoglobin 8.7 g/dL (11.5-15.3); Lymphocytes # 3.2 10^3/uL (0.8-4.8); Lymphocytes % 54.7 %; Mean Corpuscular HGB Conc 31.9 g/dL (30.0-36.0); Mean Corpuscular Volume 106.6 fl (81-99); Mean Platelet Volume 12.2 fL (7.4-10.4); Monocytes # 0.3 10^3/uL (0.2-0.9); Monocytes % 5.9 %; Neutrophils # 1.64 10^3/uL (1.8-7.7); Neutrophils % 28.3 %; Nucleated Red Blood Cells % 0 %; Platelet Count 279 10^3/cmm (130-400); Red Blood Count 2.56 10^6/uL (4.1-5.3); Red Cell Distribution Width 19.2 % (12.1-15.1); White Blood Count 5.8 10^3/uL (4.0-10.0)
[2022-01-25 04:41] LABS: Alanine Aminotransferase 19 U/L (0-33); Albumin Level 3.3 g/dL (3.5-5.2); Alkaline Phosphatase 40 IU/L (35-105); Anion Gap 9.2 (5-19); Aspartate Amino Transferase 20 U/L (0-32); Blood Urea Nitrogen 11 mg/dL (8-23); C Reactive Protein 5.5 mg/L (0.0-4.9); Calcium 8.9 mg/dL (8.5-10.5); Carbon Dioxide 28 mmol/L (22-29); Chloride 110 mmol/L (98-107); Globulin 2.5 g/dL (1.3-4.6); Glomerular Filtration Rate 62.1 mL/min (90-130); Glucose 103 mg/dL (65-115); Osmolality Calculated 296 mOsm/kg (285-295); Potassium 4.2 mmol/L (3.5-5.1); Sodium 143 mmol/L (136-145); Total Bilirubin 0.4 mg/dL (0.15-1.2); Total Protein 5.8 g/dL (6.6-8.7)
[2022-01-25 04:55] LABS: Slide Review Slide Review Perform
[2022-01-25] MEDS: cefTRIAXone 1,000 MG in sodium chloride 0.9% (plus) 100 ML 200 MG IV (09:25)
[2022-01-25] MEDS: levothyroxine 50 mcg Tablet PO (09:26)
[2022-01-25] MEDS: doxycycline 100 mg Tablet PO (09:26)
[2022-01-25] MEDS: sodium chloride 0.9% 1,000 ML 75 ML IV (11:46)
--- NOTE | 2022-01-25 12:05 | PM.DCS ---
Discharge Providers Date of Admission: 01/23/22 17:06 Date of Discharge: January 25, 2022 Attending Provider at Admission: Joaquin Jiménez MD Attending Provider at Discharge: Mary Almanza MD Diagnoses at Discharge Discharge Diagnosis (1) Atypical pneumonia: Status: Acute (2) Acute respiratory failure with hypoxia: Status: Resolved (3) Hypoxia: Status: Resolved (4) Hypothyroid: Status: Chronic Reason for Visit Reason for Visit: SOB Brief History: Dina Harrison is a 71 year old female who does not use oxygen at baseline, [place], takes care of her horses, cats and dogs, lives alone, presented with chief complaint of worsening shortness of breath.? Stating that her symptoms started on Tuesday, she has not been exposed to anyone with COVID-19, she goes to restoration on Sundays people do not wear any mask.? Her symptoms started on Tuesday with dry hacking cough which gradually got worse, today she is bringing up some white sputum, she is endorsing subjective fever, 2 episodes of loose stools, no chest pain.? She is endorsing multiple episodes of emesis with nausea, vaginal discharge, as well.? No strokelike features.? 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 She is also endorsing mold growing in her car which is attributing to recent spillage of fluid on the car mat which she was not able to clean. In the ER she is febrile requiring 2 L of oxygen, I have requested D-dimer, no leukocytosis, x-rays unremarkable, will request COVID PCR flu and COVID antigen is negative, will add doxycycline as her symptoms are consistent with atypical pneumonitis, high risk for fungal infection as well Patient left medical advice yesterday came back for worsening of hypoxia, palpitations, dehydration and recurrent vomiting. Hospital Course Hospital Course Patient seen. She was admitted for an atypical pneumonia. She has been on ceftriaxone and doxycycline. Patient is improved significantly. Blood cultures negative. Patient did not require any oxygen at discharge. She was saturating 95% on room air. She felt back to normal. Patient was sent home on ceftriaxone and doxycycline. 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 For macrocytic anemia patient was discharged home on folic acid and vitamin B12. Physical Exam Narrative: General: No acute distress, breathing normally on room air. HEENT: Normocephalic, atraumatic, EOMI, Cardio: Regular rate rhythm, normal S1-S2, no murmurs Respiratory: Clear to auscultation bilaterally no wheezes no rhonchi GI: Abdomen soft, nontender, bowel sounds + Extremities: no edema, no cyanosis Discharge Data Studies Completed and Pending Completed Studies During Hospitalization Category Date Time Status CT chest wo con [id number] Urgent Cat Scan 01/22/22 22:28 Completed XR chest 1V portable [id number] Urgent Exams 01/22/22 21:02 Completed Pending at discharge Category Date Time Status Brucella AB Agglutination Routine Lab 01/22/22 22: Received Fungitell Glucan Assay Routine Lab 01/22/22 22: Received Sputum Culture and Gram Stain Routine Lab 01/22/22 22: Uncollected Radiology Impressions Chest X-Ray 01/22/22 21:02 IMPRESSION: No obvious acute consolidation. Suboptimal lung base assessment. Followup including lateral view may be obtained if clinically indicated. Chest CT 01/22/22 22:28 IMPRESSION: 1. Stable mild bilateral central peribronchial thickening without bronchiectasis or other significant lung parenchymal disease. Linear scarring-atelectasis in the lingular region is present. 2. Hiatal hernia. Laboratory Results WBC 5.8 10^3/uL (4.0-10.0) 01/25/22 03:50 RBC 2.56 10^6/uL (4.1-5.3) L 01/25/22 03:50 Hgb 8.7 g/dL (11.5-15.3) L 01/25/22 03:50 Hct 27.3 % (37.0-47.0) L 01/25/22 03:50 MCV 106.6 fl (81-99) H 01/25/22 03:50 MCH 34.0 pg (28.0-34.0) 01/25/22 03:50 MCHC 31.9 g/dL (30.0-36.0) 01/25/22 03:50 RDW 19.2 % (12.1-15.1) H 01/25/22 03:50 Plt Count 279 10^3/cmm (130-400) 01/25/22 03:50 MPV 12.2 fL (7.4-10.4) H 01/25/22 03:50 Neut % (Auto) 28.3 % 01/25/22 03:50 Lymph % (Auto) 54.7 % 01/25/22 03:50 [place] % (Auto) 5.9 % 01/25/22 03:50 Eos % (Auto) 7.4 % 01/25/22 03:50 Baso % (Auto) 0.3 % 01/25/22 03:50 Neut # (Auto) 1.64 10^3/uL (1.8-7.7) L 01/25/22 03:50 Lymph # (Auto) 3.2 10^3/uL (0.8-4.8) 01/25/22 03:50 [place] # (Auto) 0.3 10^3/uL (0.2-0.9) 01/25/22 03:50 Eos # (Auto) 0.4 10^3/uL (0.0-0.8) 01/25/22 03:50 Baso # (Auto) 0.0 10^3/uL (0.0-0.1) 01/25/22 03:50 Nucleated RBC % (auto) 0 % 01/25/22 03:50 Nucleated RBCs # 0.0 /100WBC 01/25/22 03:50 Specimen Type Arterial 01/22/22 22:05 Sample Site Radial, left 01/22/22 22:05 ABG pH 7.44 (7.35-7.45) 01/22/22 22:05 ABG pCO2 38.8 mmHg (35-45) 01/22/22 22:05 ABG pO2 79.4 mmHg (80.0-100.0) L 01/22/22 22:05 ABG HCO3 26.4 mmol/L (22-26) H 01/22/22 22:05 ABG Base Excess 2.2 mmol/L (-2.0-2.0) H 01/22/22 22:05 [place] Test Pos 01/22/22 22:05 Hematocrit 29.6 % (37-47) L 01/22/22 22:05 O2 Delivery Device Nc 01/22/22 22:05 O2 Liters/Min 5.0 % 01/22/22 22:05 Hatchery Laborer ID Buttr 01/22/22 22:05 Sodium 143 mmol/L (136-145) 01/25/22 03:50 Potassium 4.2 mmol/L (3.5-5.1) 01/25/22 03:50 Chloride 110 mmol/L (98-107) H 01/25/22 03:50 Carbon Dioxide 28 mmol/L (22-29) 01/25/22 03:50 Anion Gap 9.2 (5-19) 01/25/22 03:50 BUN 11 mg/dL (8-23) 01/25/22 03:50 Creatinine 0.9 mg/dL (0.5-0.9) 01/25/22 03:50 GFR Calculation 62.1 mL/min (90-130) L 01/25/22 03:50 Glucose 103 mg/dL (65-115) 01/25/22 03:50 Calculated Osmolality 296 mOsm/kg (285-295) H 01/25/22 03:50 Lactic Acid 1.5 mmol/L (0.5-2.2) 01/22/22 21:40 Calcium 8.9 mg/dL (8.5-10.5) 01/25/22 03:50 Magnesium 2.4 mg/dL (1.7-2.3) H 01/23/22 04:20 Total Bilirubin 0.4 mg/dL (0.15-1.2) 01/25/22 03:50 AST 20 U/L (0-32) 01/25/22 03:50 ALT 19 U/L (0-33) 01/25/22 03:50 Alkaline Phosphatase 40 IU/L (35-105) 01/25/22 03:50 C-Reactive Protein 5.5 mg/L (0.0-4.9) H 01/25/22 03:50 Total Protein 5.8 g/dL (6.6-8.7) L 01/25/22 03:50 Albumin 3.3 g/dL (3.5-5.2) L 01/25/22 03:50 Globulin 2.5 g/dL (1.3-4.6) 01/25/22 03:50 Procalcitonin 0.27 ng/mL (0-0.5) 01/22/22 21:40 Vitals Last Vital Signs Temp 97.5 F L 01/25/22 08:00 Pulse 73 01/25/22 09:40 Resp 17 01/25/22 09:30 BP 129/78 01/25/22 08:00 Pulse Ox 96 01/25/22 09:30 Discharge Plan Discharge Patient Disposition: Home Condition: Stable Prescriptions: New cefdinir 300 mg capsule 300 mg PO BID 5 Days Qty: 10 0RF doxycycline monohydrate 100 mg capsule 100 mg PO BID 5 Days Qty: 10 0RF vitamin [id number] acid 1,000-400 mcg lozenge 1 leo sublingual DAILY 30 Days Qty: 30 0RF Continued levothyroxine [Synthroid] 50 mcg tablet 50 mcg PO DAILY Qty: 90 1RF Discharge Orders: Discharge Order (Routine); Ordered 01/25/22 Ordered By: Mary Almanza Referrals: Glory Katz DO [Referring] - 01/28/22 9:40 am Discharge Diet: Regular Discharge Activity: Increase activity as tolerated Patient Instructions: Doxycycline (By mouth), Cefdinir (By mouth), Vitamin B-12 (By mouth), Pneumonia (GEN), Opioid Safety Discharge Attestations Time Spent in Discharge Care*: less than 30 min Quality Metrics Clinical Quality Measures [ No reported AMI, CVA or VTE this stay] Coding Level of Care Code Acute Chg FW DC note Diagnoses Atypical pneumonia J18.9 Acute respiratory failure with hypoxia J96.01 Hypoxia R09.02 Hypothyroid E03.9
[2022-01-28 23:43] LABS: Brucella AB Agglutination <1:80 titer
[2022-01-30 17:07] LABS: Fungitell 1-3-B Glucan Assay <31 pg/mL; Interpretation NEGATIVE
== END 2022-01-25 14:20 | disposition home or self-care (01) | DRG 193 ==
LOC: ER 20:57 → MEDSURG 21:36
PROVIDERS: Family Medicine; Admitting Provider Internal Medicine; Emergency Provider Emergency Medicine; Visit Provider Internal Medicine
DX: J18.9 Pneumonia, unspecified organism (principal); J96.01 Acute respiratory failure with hypoxia; E03.9 Hypothyroidism, unspecified; N76.0 Acute vaginitis; D53.9 Nutritional anemia, unspecified
CPT/HCPCS: 36415; 36600; 71045; 71250; 80048; 80053; 82803; 83605; 83735; 83880; 84145; 85025; 85378; 85610; 86140; 86622; 87040; 87426; 87449; 87804; 93005; 94640; 94664; 96365; 96367; 96372; 96375; 99285; G0378; J0696; J1650; J2405; J2930; J7030; J7611

== ENCOUNTER 2022-03-12 21:52 | Emergency (ER) | payer MEDICARE, SELFPAY ==
[2022-03-12 21:57] VITALS: BP 148/88; PULSE 95; RESP 18; TEMP 36.7; O2SAT 98; BMI 26.6
--- NOTE | 2022-03-12 22:04 | W.ED.EAR ---
HPI - Ear Problem General: Chief complaint: Ear Stated complaint: bug in ear Time Seen by Provider: 03/12/22 22:01 History of Present Illness: Patient is a 71-year-old female comes to the ED with possible bug in right ear. She says just prior to arrival whenever animals walked by her while she was laying down and she felt something fall into her ear and started crawling into her right ear. She can feel something moving around in her right ear. Patient has some bleeding from ear as well. Associated symptoms: Reports ear or mastoid pain (Insect in right ear.); Denies fever(s), headache(s) or neck pain Review of Systems Const: Denies: fever(s), chills or fatigue Eyes: Denies: change in vision or eye discomfort ENMT: Reports: ear or mastoid pain (Insect in right ear.); Denies: throat pain, odynophagia, nasal discharge or nasal congestion Card: Denies: chest pain, palpitations, edema, swelling of feet/ankles, dyspnea on exertion or orthopnea Resp: Denies: dyspnea, productive cough or non-productive cough GI: Denies: abdominal pain, nausea, vomiting, diarrhea, constipation or hematochezia : Denies: flank pain, dysuria or hematuria Musc: Denies: neck pain, back pain or extremity swelling Skin/Breast: Denies: rash or new lesions Neuro: Denies: headache(s), numbness in extremities or weakness in extremities [facility] PFSH: Medical History Adjustment disorder BV (bacterial vaginosis) Dysuria Hypothyroid STD exposure Vaginal discharge Surgical History H/O tubal ligation History of mandibular surgery Family History Sister Breast cancer, Onset Age: 35 Thyroid condition Mother CAD (coronary artery disease) Stroke Thyroid condition Family/Other Breast cancer, Onset Age: 60 maternal aunt maternal great aunt Grandmother Breast cancer, Onset Age: 98 maternal Hypertension maternal Father Diabetes Denies family history of Clotting disorder Hyperlipidemia Anesthesia complication Bleeding disorder Social History Smoking and tobacco status: never smoked Alcohol intake: current Alcohol intake frequency: holidays/special occasions only Alcohol type: beer Physical Exam Const: COMMON NORMALS: patient oriented x3 and alert GENERAL APPEARANCE: cooperative HENMT: COMMON NORMALS: normocephalic HEAD & SCALP: normocephalic EXTERNAL AUDITORY CANAL: Abnormal EAC present EAC laterality: right Details: EAC tenderness, foreign body (Insect-not moving after viscous lidocaine applied) and otic discharge Details: bloody TYMPANIC MEMBRANE: TM abnormal TM laterality: right Details: perforation (TM was not fully visualized but appeared to be ruptured with some bloody discharge) Details: with bloody discharge MOUTH: Normal oral and palatal mucosa present THROAT: posterior oropharynx normal and uvula midline Neck/C-Spine: COMMON NORMALS: supple GENERAL: Yes normal visual inspection Resp: COMMON NORMALS: normal respiratory effort, No retractions, No use of accessory muscles and clear to auscultation bilaterally AUSCULTATION: clear to auscultation bilaterally Cardio: COMMON NORMALS: regular rate, regular rhythm, S1 normal heart sound present, S2 normal heart sound present, No gallops present (Cardio), No clicks present (Cardio), No murmurs present (Cardio) and Peripheral pulses 2+ throughout RATE: regular rate RHYTHM: regular rhythm HEART SOUNDS: S1 normal heart sound present and S2 normal heart sound present PERIPHERAL PULSES: Peripheral pulses 2+ throughout GI: COMMON NORMALS: Normal to inspection, nondistended, normoactive bowel sounds present, Soft to palpation, non-tender and no masses PALPATION: Yes Soft to palpation : COMMON NORMALS: Yes no CVA tenderness BLADDER/KIDNEY EXAM: Yes no CVA tenderness Back/Pelvis: COMMON NORMALS: no CVA tenderness Neuro: COMMON NORMALS: patient oriented x3 and moves all extremities SENSORIUM/ORIENTATION: Yes alert Course ED course: We use lidocaine viscus and right ear and that killed insect. The insect is not doing any moving upon exam and appears . We then did multiple irrigations with normal saline of the right ear and used some small tweezers and alligator forceps to try to remove insect. We are able to remove a piece of insect but there is still most of insect intact in EAC. I put in a referral for patient to be seen by ENT on Tuesday to get insect removed from right ear. Vital Signs: Vital signs: Vital Signs Temperature 98.0 F 03/12/22 21:57 Pulse Rate 95 06/24/22 21:57 Respiratory Rate 18 03/12/22 21:57 Blood Pressure 148/88 03/12/22 21:57 Pulse Oximetry 98 03/12/22 21:57 MDM - Ear Medical Decision Making Patient is a 71-year-old female comes to the ED with insect in right ear. Upon exam insect was visualized in right ear and there was some bleeding from EAC in likely TM rupture as well. Lidocaine viscous and right ear and that killed insect. The insect is not doing any moving upon exam and appears . We then did multiple irrigations with normal saline of the right ear and used some small tweezers and alligator forceps to try to remove insect. We are able to remove a piece of insect but there is still most of insect intact in EAC. I put in a referral for patient to be seen by ENT on Tuesday to get insect removed from right ear. Patient was given a dose of amoxicillin and Ciprodex eardrops while here in the ED. She was discharged home with prescription for amoxicillin and Ciprodex otic drops. She was given the contact information for Dr. Hubbard ENT office and told to call them on Tuesday or case management will call them to get something set up to get rest of insect in right ear removed. Patient understood and agreed with plan. Discharge Plan Discharge Patient Disposition: Home Clinical Impression: Foreign body in right ear Qualifiers: Encounter type: initial encounter Qualified Code(s): T16.1XXA - Foreign body in right ear, initial encounter Condition: Stable Prescriptions: New Ciprodex 0.3-0.1 % drops,suspension 4 drp otic (ear) BID 7 Days Qty: 7.5 0RF amoxicillin 500 mg capsule 500 mg PO BID 10 Days Qty: 20 0RF No Action levothyroxine [Synthroid] 50 mcg tablet 50 mcg PO DAILY Qty: 90 1RF Discharge Orders: Discharge ED (Routine); Ordered 03/13/22 Ordered By: Jose Daniel Ventura Discharge Diet: Regular Discharge Activity: Increase activity as tolerated Patient Instructions: Foreign Body - Ear Activity Restrictions/Additional Instructions: Follow-up with medical provider as directed. Case management should be contacting you on Tuesday to set up an appointment with ENT for evaluation of right ear. Call Dr. Hubbard office on Tuesday Morning? Take medications as prescribed. Return to the ER or your medical provider if condition worsens. Please read and understand discharge instructions. Thank you for choosing [facility] for your healthcare needs today. Please realize this is an emergency room and that we are providing you with a medical screening exam and this may not be complete and all inclusive of all the testing and or work up that you may need to determine your ailment or severity of your illness. It is very important that you follow up as instructed or that you return to the Emergency Department should you have concerns or if your condition changes or worsens in any way. Coding Level of Care Code ED Supervisory Investigative Specialist for Gabriele Fwjohn Exam Comprehensive
[2022-03-12] MEDS: lidocaine 2% viscous 15 mL UDC 10 ML MUCOUS MEM (22:12)
[2022-03-13] MEDS: amoxicillin 500 mg Capsule PO (02:36)
[2022-03-13] MEDS: ciprofloxacin-dexameth Otic Susp 7.5 mL Btl 4 DROP EAR-RIGHT (02:36)
[2022-03-13 03:14] VITALS: BP 130/75; PULSE 78; RESP 18; O2SAT 98
--- NOTE | 2022-03-13 10:44 | DCPLANNER ---
Addendum entered by Ansley Montez 03/25/22 18:31: Patient had a follow up appointment scheduled for 03.15.22 with ENT - patient did attend appointment. Original Note: manager party had message to schedule a follow up appointment for patient with ENT. manager party sent patients information to the front office staff at ENT. Patients information will be printed and reviewed. Clinic will call patient with appointment information.
== END 2022-03-13 03:15 | disposition home or self-care (01) ==
PROVIDERS: Emergency Provider Physician Assistant
DX: T16.1XXA Foreign body in right ear, initial encounter (principal); X58.XXXA Exposure to other specified factors, initial encounter
CPT/HCPCS: 99283

== ENCOUNTER → 2022-03-15 15:56 | Outpatient (BNVA) | payer MEDICARE, SELFPAY | PROVIDERS: Visit Provider Otolaryngology | DX: T16.1XXA Foreign body in right ear, initial encounter (principal); X58.XXXA Exposure to other specified factors, initial encounter | CPT/HCPCS: 69200; 69205; 99203 ==

== ENCOUNTER 2022-04-01 13:54 | Observation (INO) | payer MEDICARE, SELFPAY ==
[2022-04-01] VITALS (8 sets, daily range): BP systolic 110–138; BP diastolic 69–86; PULSE 55–100; RESP 14–26; TEMP 36.4–37.2; O2SAT 94–100; BMI 27.4
--- NOTE | 2022-04-01 13:58 | W.ED.GENADLT ---
HPI - General Adult General: Chief complaint: Dizziness Stated complaint: BRADYCARDIA Time Seen by Provider: 04/01/22 13:57 History of Present Illness: Ms. Harrison is a 71-year-old lady with history of thyroid disorder who presents to the emergency department due to dizziness. Onset of symptoms was approximately at noon. She reports previously being at her baseline health. Patient reports sudden onset of dizziness with a spinning sensation and irregular heartbeat sensation. Symptoms since onset of end severe and are worsened with movement however still present with eyes closed and at rest. She denies associated any other neurologic symptoms. She has had nausea and vomiting. Overall course of symptoms has persisted. She went to clinic and was found to have episodes of bradycardia into the 30s and irregular heart rhythm and referred to ED for further evaluation. She does endorse a bug in her ear approximately 1 week ago and has been on amoxicillin. Additionally she reports a history of irregular heartbeats however has never been diagnosed with A. fib. She reports thyroid medication was switched from generic to brand name today however she has been on this before and denies any problems with it similarly to today. No other specific changes in health, exacerbating, or alleviating factors identified. Onset (ago): hour(s) Severity: severe Pain Consistency: constant Associated symptoms: Reports nausea and vomiting Review of Systems General: Reports: 10 or more systems reviewed and unremarkable except in HPI and below GI: Reports: nausea and vomiting [facility] ED PFSH: Medical History (Updated 04/03/22 @ 00:01 by ) Adjustment disorder Anemia, macrocytic Atypical pneumonia BV (bacterial vaginosis) Dysuria Hypothyroid STD exposure Vaginal discharge Surgical History H/O tubal ligation History of mandibular surgery Family History Sister Breast cancer, Onset Age: 35 Thyroid condition Mother CAD (coronary artery disease) Stroke Thyroid condition Family/Other Breast cancer, Onset Age: 60 maternal aunt maternal great aunt Grandmother Breast cancer, Onset Age: 98 maternal Hypertension maternal Father Diabetes Denies family history of Clotting disorder Hyperlipidemia Anesthesia complication Bleeding disorder Social History Smoking and tobacco status: never smoked Alcohol intake: current Alcohol intake frequency: holidays/special occasions only Alcohol type: beer Physical Exam Const: COMMON NORMALS: patient oriented x3 and alert GENERAL APPEARANCE: cooperative and well developed HENMT: COMMON NORMALS: normocephalic and atraumatic HEAD & SCALP: normocephalic and atraumatic THROAT: posterior oropharynx normal Eye: COMMON NORMALS: conjunctivae normal CONJUNCTIVA: Yes conjunctivae normal SCLERA: sclerae normal Neck/C-Spine: COMMON NORMALS: supple GENERAL: Yes trachea midline Resp: COMMON NORMALS: normal respiratory effort EFFORT & INSPECTION: Yes able to speak in complete sentences Cardio: COMMON NORMALS: regular rate and regular rhythm RATE: regular rate RHYTHM: regular rhythm GI: COMMON NORMALS: Soft to palpation PALPATION: Yes Soft to palpation and No Tenderness to palpation present (GI) PERCUSSION: normal to percussion Extremity: GENERAL: Yes normal exam except as noted and No edema Neuro: COMMON NORMALS: patient oriented x3, CN's II-XII intact bilaterally, moves all extremities, no focal motor deficits and no sensory deficits noted SENSORIUM/ORIENTATION: Yes alert and No Orientation impaired Psych: COMMON NORMALS: mental status grossly normal and Normal thought process present THOUGHT PROCESS: Normal thought process present Course ED course: - Patient was seen and evaluated by me at bedside - Patient placed on cardiac monitors, IV access obtained - Initial evaluation notable for exam as above - Labs and xrays personally interpreted by me. EKG showing sinus rhythm, no STEMI. - Fluids and symptom treatment - Labs notable for no leukocytosis, macrocytic anemia present. Metabolic panel with mild dehydration and hypokalemia, replenishment ordered. - Imaging notable for no lobar consolidation or pneumothorax on chest x-ray. CT head without acute intracranial hemorrhage or mass. No acute LVO - Upon serial reexamination after treatment the patient was not significantly proved - Based on patient history, evaluation, and testing as interpreted the most likely cause of the patient's condition is dizziness of uncertain etiology with episodic bradycardia and macrocytic anemia. - The results of ED evaluation were discussed with the patient including plan for admission due to requirement for level of care not available if discharged to prevent significant worsening/deterioration. - Admitting service was contacted and Dr Hurst with the hospitalist service agreed to admit the patient - Patient was admitted without further deterioration or significant events. Note: Click bubbles or prepopulated ang[place] in note writing are used for assistance with data collection and billing and are inherently more limited than narrative and other text portions of this note. Please use narrative for additional clinical history and defer to narrative/free test for any case of contradictory information. If information appears in only free text or click bubble it should be considered present or absent as reported. Please contact note sports book writer for clarifications of clinical information or contradictory information. MDM is a brief summary, contradictory or erroneous seeming information should be clarified and full note should be reviewed. Vital Signs: Vital signs: Vital Signs Temperature 98.7 F 04/02/22 11:03 Pulse Rate 63 04/02/22 11:03 Respiratory Rate 16 04/02/22 11:03 Blood Pressure 110/64 04/02/22 11:03 Pulse Oximetry 93 04/02/22 11:03 MDM - General Adult Medical Decision Making 71-year-old lady presenting with dizziness. No other neurodeficits appreciated. Patient not tPA candidate. Symptoms failed to improve significantly with treatment. Patient noted to have bradycardia which may partially explain symptoms. Admitted for further management. Medical Records I reviewed the patient's medical records. Lab Data I reviewed the patient's lab results. : 04/02/22 04:14 04/02/22 04:14 Radiology Impressions Chest X-Ray 04/01/22 14:10 IMPRESSION: No acute findings. Head CT 04/01/22 14:10 IMPRESSION: 1. No acute intracranial hemorrhage or edema. 2. Mild atrophy and small vessel ischemic disease. Head/Neck CTA 04/01/22 14:10 IMPRESSION: 1. No significant carotid artery stenosis. No plaque, stenosis or dissection evident. 2. 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 Arteries are intact with no atherosclerotic disease. Laboratory Results WBC 6.6 10^3/uL (4.0-10.0) 04/01/22 14:06 RBC 2.69 10^6/uL (4.1-5.3) L 04/01/22 14:06 Hgb 9.3 g/dL (11.5-15.3) L 04/01/22 14:06 Hct 27.7 % (37.0-47.0) L 04/01/22 14:06 MCV 103.0 fl (81-99) H 04/01/22 14:06 MCH 34.6 pg (28.0-34.0) H 04/01/22 14:06 MCHC 33.6 g/dL (30.0-36.0) 04/01/22 14:06 RDW 18.3 % (12.1-15.1) H 04/01/22 14:06 Plt Count 434 10^3/cmm (130-400) H 04/01/22 14:06 MPV 11.5 fL (7.4-10.4) H 04/01/22 14:06 Neut % (Auto) 53.9 % 04/01/22 14:06 Lymph % (Auto) 34.2 % 04/01/22 14:06 [place] % (Auto) 7.9 % 04/01/22 14:06 Eos % (Auto) 2.7 % 04/01/22 14:06 Baso % (Auto) 0.8 % 04/01/22 14:06 Neut # (Auto) 3.56 10^3/uL (1.8-7.7) 04/01/22 14:06 Lymph # (Auto) 2.3 10^3/uL (0.8-4.8) 04/01/22 14:06 [place] # (Auto) 0.5 10^3/uL (0.2-0.9) 04/01/22 14:06 Eos # (Auto) 0.2 10^3/uL (0.0-0.8) 04/01/22 14:06 Baso # (Auto) 0.1 10^3/uL (0.0-0.1) 04/01/22 14:06 Nucleated RBC % (auto) 0 % 04/01/22 14:06 Nucleated RBCs # 0.0 /100WBC 04/01/22 14:06 PT 15.30 SECONDS (12.1-14.9) H 04/01/22 14:20 INR 1.17 (0.8-1.2) 04/01/22 14:20 APTT 29.8 SECONDS (23.9-36.7) 04/01/22 14:20 Sodium 139 mmol/L (136-145) 04/01/22 14:06 Potassium 3.4 mmol/L (3.5-5.1) L 04/01/22 14:06 Chloride 105 mmol/L (98-107) 04/01/22 14:06 Carbon Dioxide 20 mmol/L (22-29) L 04/01/22 14:06 Anion Gap 17.4 (5-19) 04/01/22 14:06 BUN 14 mg/dL (8-23) 04/01/22 14:06 Creatinine 1.0 mg/dL (0.5-0.9) H 04/01/22 14:06 GFR Calculation 55.0 mL/min (90-130) L 04/01/22 14:06 Glucose 116 mg/dL (65-115) H 04/01/22 14:06 Calculated Osmolality 289 mOsm/kg (285-295) 04/01/22 14:06 Calcium 8.7 mg/dL (8.5-10.5) 04/01/22 14:06 Magnesium 1.9 mg/dL (1.7-2.3) 04/01/22 14:06 Iron 76 ug/dL (37-145) 04/01/22 14:40 TIBC 179 mcg/dl 04/01/22 14:40 % Saturation 42.4 % (20-50) 04/01/22 14:40 Unsat Iron Binding 103 ug/dL (112-347) L 04/01/22 14:40 Total Bilirubin 0.8 mg/dL (0.15-1.2) 04/01/22 14:06 AST 12 U/L (0-32) 04/01/22 14:06 ALT 11 U/L (0-33) 04/01/22 14:06 Alkaline Phosphatase 52 IU/L (35-105) 04/01/22 14:06 Troponin T Baseline 8 ng/L (0-10) 04/01/22 14:06 Troponin T 120 Minute 8.58 ng/L (0-10) 04/01/22 16:29 Delta Troponin T 0.58 ABS# (0-10) 04/01/22 16:29 NT-Pro-B Natriuret Pep 124 pg/mL (0-125) 04/01/22 14:06 Total Protein 6.1 g/dL (6.6-8.7) L 04/01/22 14:06 Albumin 4.0 g/dL (3.5-5.2) 04/01/22 14:06 Globulin 2.1 g/dL (1.3-4.6) 04/01/22 14:06 Vitamin B12 424 pg/mL (232-1245) 04/01/22 14:40 TSH 1.05 uIU/mL (0.27-4.20) 04/01/22 14:06 Discharge Plan Discharge Patient Disposition: Placed in Observation Admit Provider: Johnathon Hurst Clinical Impression: Dizziness, Anemia, macrocytic, Bradycardia, Irregular heart rate Discharge Diet: Regular Discharge Activity: Resume usual activity and Increase activity as tolerated Coding Level of Care Code ED Medical Or Surgical Instrument Maker for Chg Fwd Exam Comprehensive
--- NOTE | 2022-04-01 14:10 | CT_ITS ---
WS: [id number] CT ANGIOGRAM CEREBRAL AND CAROTID ARTERIES HISTORY: stroke like symptoms, dizzy, posterior circulation TECHNIQUE: CT angiogram is performed of the carotid and cerebral arteries. During arterial injection imaging is obtained from the skull vertex to the aortic arch in 1.25 mm imaging. Coronal and sagittal reformats are submitted. Additional multi planar reformats of the carotid and cerebral arteries are submitted, MIP imaging also reviewed. NASCET criteria utilized. [facility] CT [facility] at least one of these dose optimization techniques: automated exposure control; mA and/or kV adjust ment per patient size (includes targeted exams where dose is matched to clinical indication); or iter ative reconstruction. CONTRAST: Omnipaque 350; 95 mL IV. DLP: 439.74 mGy.cm COMPARISON: None available. Carotid Angiogram: Right carotid: Common carotid artery: Arises normally from the innominate artery. No significant plaque or stenosis. Internal carotid artery: No plaque or stenosis. External carotid artery: Patent. Left carotid: Common carotid artery: Normally arises from the arch. Short segment area of the artery is partially o bscured by motion artifact. Bifurcation is intact. Internal carotid artery: No plaque or stenosis. External carotid artery: Patent. Right vertebral artery: Unremarkable. Left vertebral artery: Unremarkable. Arises normally from the subclavian artery. Subclavian arteries: No stenosis or significant abnormality. Upper thorax: Motion artifact. Thyroid gland: Normal. Osseous structures: Reversal the normal cervical lordosis centered at C4-5. No fractures. CEREBRAL ANGIOGRAM: Intracranial vertebral arteries: Small caliber vertebral arteries but they are patent. Basilar artery: Small caliber basilar artery measuring 3 mm. No thrombus. Intracranial Internal carotid arteries: Demonstrates no significant stenosis or plaque. Middle cerebral arteries: Normal. Anterior cerebral arteries and ACOM: Normal. Posterior cerebral arteries and PCOM's: Normal. Dural venous sinuses are normally enhancing. Mastoid air cells: Normal. Paranasal sinuses: Mucous retention cyst LEFT maxillary sinus. Calvarium: Normal. CT/CT angio headneck* [id number] IMPRESSION: 1. No significant carotid artery stenosis. No plaque, stenosis or dissection e vident. 2. 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 Arteries are intact with no atherosclerotic disease.
--- NOTE | 2022-04-01 14:10 | XRR_ITS ---
PROCEDURE INFORMATION: Exam: XR Chest Exam date and time: 04/01/2022 2:25 PM Age: 71 years old Clinical indication: Other: Stroke like symptoms, bradycardia TECHNIQUE: Imaging protocol: Radiologic exam of the chest. Views: 1 view. COMPARISON: CT chest con [id number] 01/22/2022 11:15 PM FINDINGS: Lungs: Unremarkable. No consolidation. Pleural spaces: Unremarkable. No pleural effusion. No pneumothorax. Heart/Mediastinum: Unremarkable. No cardiomegaly. Bones/joints: Unremarkable. XR/XR chest 1V portable [id number] IMPRESSION: No acute findings.
--- NOTE | 2022-04-01 14:10 | CT_ITS ---
WS: [id number] CT HEAD NONCONTRAST HISTORY: stroke like symptoms, dizziness TECHNIQUE: Contiguous axial imaging performed through the brain in 2.5 mm imaging. Bone and soft tiss ue windows. Sagittal and coronal reformats reviewed. All CT scans at [facility] use at least one of these dose optimization techniques: automated exposure control; mA and/or kV adjustment per pa tient size (includes targeted exams where dose is matched to clinical indication); or iterative recon struction. DLP: 1124.18 mGy.cm COMPARISON: None available. No acute intracranial hemorrhage, midline shift or mass effect. Mild atrophy and mild small vessel ischemic disease. Prior lacunar infarct internal capsule on the RI GHT. Ventricles: Normal size with no hydrocephalus. Paranasal sinuses: Mucous retention cyst in the LEFT maxillary sinus. There is a defect within the an terior wall the LEFT maxillary sinus which may be from old trauma. No skull fracture identified. Mastoid air cells: Well pneumatized. Calvarium and scalp: Skull is intact with no soft tissue edema or swelling. CT/CT head wo con* [id number] IMPRESSION: 1. No acute intracranial hemorrhage or edema. 2. Mild atrophy and small vessel ischemic disease.
--- NOTE | 2022-04-01 14:11 | ECG_ITS ---
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 Measurements Intervals [place] Rate: 69 P: 56 WV: 149 QRS: 43 QRSD: 81 T: 60 QT: 404 QTc: 433 Interpretive Statements SINUS RHYTHM MINIMAL ST DEPRESSION [0.025+ mV ST DEPRESSION] Compared to ECG 01/21/2022 22:25:43 Sinus tachycardia no longer present Ventricular premature complex(es) no longer present ST (T wave) deviation still present Electronically Signed On 04-01-2022 22:41:44 CDT by Magali Lou M.D. [id number]
[2022-04-01 14:32] LABS: Basophils # 0.1 10^3/uL (0.0-0.1); Basophils % 0.8 %; Eosinophils # 0.2 10^3/uL (0.0-0.8); Eosinophils % 2.7 %; Hematocrit 27.7 % (37.0-47.0); Hemoglobin 9.3 g/dL (11.5-15.3); Lymphocytes # 2.3 10^3/uL (0.8-4.8); Lymphocytes % 34.2 %; Mean Corpuscular HGB Conc 33.6 g/dL (30.0-36.0); Mean Corpuscular Hemoglobin 34.6 pg (28.0-34.0); Mean Platelet Volume 11.5 fL (7.4-10.4); Monocytes # 0.5 10^3/uL (0.2-0.9); Monocytes % 7.9 %; Neutrophils # 3.56 10^3/uL (1.8-7.7); Neutrophils % 53.9 %; Nucleated Red Blood Cells % 0 %; Platelet Count 434 10^3/cmm (130-400); Red Blood Count 2.69 10^6/uL (4.1-5.3); Red Cell Distribution Width 18.3 % (12.1-15.1); White Blood Count 6.6 10^3/uL (4.0-10.0)
[2022-04-01 14:41] LABS: Troponin(5th) Baseline 8 ng/L (0-10)
[2022-04-01] MEDS: iohexol 350 mg/mL 100 mL Btl IV (14:44)
[2022-04-01 14:52] LABS: INR 1.17 (0.8-1.2)
[2022-04-01 14:55] LABS: Alanine Aminotransferase 11 U/L (0-33); Alkaline Phosphatase 52 IU/L (35-105); Anion Gap 17.4 (5-19); Aspartate Amino Transferase 12 U/L (0-32); Blood Urea Nitrogen 14 mg/dL (8-23); Calcium 8.7 mg/dL (8.5-10.5); Carbon Dioxide 20 mmol/L (22-29); Chloride 105 mmol/L (98-107); Globulin 2.1 g/dL (1.3-4.6); Glucose 116 mg/dL (65-115); Magnesium 1.9 mg/dL (1.7-2.3); NT Pro B Type Natriuretic Pept 124 pg/mL (0-125); Osmolality Calculated 289 mOsm/kg (285-295); Potassium 3.4 mmol/L (3.5-5.1); Sodium 139 mmol/L (136-145); Thyroid Stimulating Hormone 1.05 uIU/mL (0.27-4.20); Total Bilirubin 0.8 mg/dL (0.15-1.2); Total Protein 6.1 g/dL (6.6-8.7)
[2022-04-01] MEDS: haloperidol inj 5 mg/mL INJ 1 mL 2 MG IVP (15:11)
--- NOTE | 2022-04-01 16:11 | ECG_ITS ---
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 Measurements Intervals [place] Rate: 59 P: 72 UT: 160 QRS: 40 QRSD: 78 T: 70 QT: 413 QTc: 410 Interpretive Statements SINUS BRADYCARDIA WITH OCCASIONAL ECTOPIC PREMATURE COMPLEXES Compared to ECG 04/01/2022 14:24:04 Sinus rhythm no longer present ST (T wave) deviation no longer present Electronically Signed On 04-02-2022 17:14:30 CDT by Magali Lou M.D. [id number]
[2022-04-01 16:37] LABS: Partial Thromboplastin Time 29.8 SECONDS (23.9-36.7)
[2022-04-01] MEDS: potassium chloride ER 20 mEq Tablet 40 MEQ PO (16:55)
[2022-04-01] MEDS: meclizine 25 mg tablet PO (16:55)
[2022-04-01] MEDS: sodium chloride 0.9% 1,000 ML 999 ML IV (16:58)
--- NOTE | 2022-04-01 17:10 | P.HP_ITS ---
Providers/Chief Complaint Chief Complaint: BRADYCARDIA History of Present Illness Dina Harrison is a 71 year old female with past medical history of hypothyroidism who has been on amoxicillin for last 2 weeks for ear infection first after insect bite and then bronchitis comes into the ER today after having 1 episode of vertigo at a hair of salon on standing up from sitting position. Head spinning around, blackening in front of her eye. Denies any aura, tinnitus, heaviness in the legs, weakness in any of limbs, loss of bowel or bladder functions. Patient states she has been having nausea since morning so did not have her breakfast. Denied having any similar complaints last night or when she woke up today morning. Denies having any chest pain at rest or exertion today or in the last few weeks. Does complain of having few episodes of feeling of palpitations with her heart rate either going too high or too low for the last few months. Denies any changes in medications, cough, abdominal pain. Does complaint postnasal drip. The ER patient has had a CT head and CTA head and neck done which were both negative for any acute abnormality. Patient has received 1 L bolus of IV fluids. Review of Systems General: Reports: 10 or more systems reviewed and unremarkable except in HPI and below Const: Denies: fever(s), chills, body aches, change in appetite, change in w eight, malaise, night sweats, diaphoresis, change in sleep pattern, daytime sleepiness or snoring Eyes: Denies: change in vision, blurry vision, photophobia, eye discomfort or eye discharge ENMT: Denies: throat pain, enlarged tonsils, hoarseness, mouth pain, oral sores, dry mouth, tinnitus, nasal congestion or post nasal drip Card: Denies: chest pain, palpitations, irregular heart rhythm, edema, swelling of feet/ankles, lightheadedness, syncope, pre-syncope, dyspnea on exertion, orthopnea, leg pain with exertion or acrocyanosis Resp: Denies: dyspnea, productive cough, non-productive cough, wheezing, stridor, pain on inspiration, change in phlegm color, hemoptysis or chest congestion GI: Denies: abdominal pain, nausea, vomiting, hematemesis, coffee ground emesis, dysphagia, heartburn, diarrhea, constipation, bloating, GI cramping, change in bowel habits, pain on defecation, hematochezia or melena : Denies: flank pain, dysuria, urinary frequency, urinary urgency, urinary hesitancy, nocturia or hematuria Musc: Denies: neck pain, back pain, extremity pain, joint pain, joint s welling, joint redness, joint stiffness or limited range of motion Neuro: Denies: headache(s), numbness in extremities, weakness in extremities, sensory changes, lack of coordination, difficulty walking, frequent falls, dizziness, vertigo, confusion, Slurred speech present, difficulty communicating thoughts or seizure-like activity Psych: Denies: anxiety, depression, mood swings, panic attacks, hopelessness or irritability Endo: Denies: polyuria, polydipsia, tired all the time, cold intolerance, excessive sweating, flushing or heat intolerance Joss/Lymph: Denies: easy bruising or easy bleeding All/Imm: Denies: tongue swelling, facial swelling or acute wheezing Medications/Allergies Home Medications Medication Instructions Recorded Confirmed Last Taken Type levothyroxine 50 mcg tablet 50 mcg PO DAILY #90 tab 05/06/20 04/01/22 03/31/22 Rx (Synthroid) albuterol sulfate 90 mcg/actuation 2 puff INHALATION Q6H PRN 04/01/22 04/01/22 Unknown History aerosol inhaler amoxicillin 500 mg capsule 500 mg PO BID 04/01/22 04/01/22 04/01/22 History ferrous sulfate 325 mg (65 mg 325 mg PO DAILY 04/01/22 04/01/22 04/01/22 History iron) tablet (FeroSul) Allergies Allergy/AdvReac Type Severity Reaction Status Date / Time milk Allergy Severe anaphylaxis Verified 03/15/22 16:07 nylon Allergy Severe rash Verified 03/15/22 16:07 codeine Allergy Unknown Verified 03/15/22 16:07 lactase [From Dairy Aid] Allergy ALGY-Anaphy Verified 03/15/22 16:07 laxis latex AdvReac Mild UNKNOWN Verified 03/15/22 16:07 PFSH Acute PFSH: Medical History (Updated 04/01/22 @ 17:12 by Johnathon Hurst MD) Adjustment disorder Atypical pneumonia BV (bacterial vaginosis) Dysuria Hypothyroid STD exposure Vaginal discharge Surgical History H/O tubal ligation History of mandibular surgery Family History Sister Breast cancer, Onset Age: 35 Thyroid condition Mother CAD (coronary artery disease) Stroke Thyroid condition Family/Other Breast cancer, Onset Age: 60 maternal aunt maternal great aunt Grandmother Breast cancer, Onset Age: 98 maternal Hypertension maternal Father Diabetes Denies family history of Clotting disorder Hyperlipidemia Anesthesia complication Bleeding disorder Social History Smoking and tobacco status: never smoked Alcohol intake: current Alcohol intake frequency: holidays/special occasions only Alcohol type: beer Vitals/I&O/Wt Last Vital Signs Temp 97.6 F 04/01/22 14:02 Pulse 55 L 04/01/22 14:24 Resp 26 H 04/01/22 14:24 BP 127/86 04/01/22 14:24 Pulse Ox 100 04/01/22 14:24 Weight last 48 hrs Weight 72.575 kg Physical Exam Narrative: General: No acute distress, AO x3 HEENT: PERRLA, pupils bilaterally equal and reactive Chest: Normal vesicular breath sounds, no added sounds, equal good air entry bilaterally CVS: S1-S2 regular, no murmurs, no tachycardia, no gallops, no rubs Abdomen: Soft, nontender, no organomegaly, bowel sounds present Neuro: No focal deficits, no facial deformity, AO x3, power 5/5 in all limbs Data : 04/02/22 04:14 04/02/22 04:14 Other Labs: Radiology Impressions Chest X-Ray 04/01/22 14:10 IMPRESSION: No acute findings. Head CT 04/01/22 14:10 IMPRESSION: 1. No acute intracranial hemorrhage or edema. 2. Mild atrophy and small vessel ischemic disease. Head/Neck CTA 04/01/22 14:10 IMPRESSION: 1. No significant carotid artery stenosis. No plaque, stenosis or dissection evident. 2. 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 Arteries are intact with no atherosclerotic disease. Laboratory Results WBC 6.6 10^3/uL (4.0-10.0) 04/01/22 14:06 RBC 2.69 10^6/uL (4.1-5.3) L 04/01/22 14:06 Hgb 9.3 g/dL (11.5-15.3) L 04/01/22 14:06 Hct 27.7 % (37.0-47.0) L 04/01/22 14:06 MCV 103.0 fl (81-99) H 04/01/22 14:06 MCH 34.6 pg (28.0-34.0) H 04/01/22 14:06 MCHC 33.6 g/dL (30.0-36.0) 04/01/22 14:06 RDW 18.3 % (12.1-15.1) H 04/01/22 14:06 Plt Count 434 10^3/cmm (130-400) H 04/01/22 14:06 MPV 11.5 fL (7.4-10.4) H 04/01/22 14:06 Neut % (Auto) 53.9 % 04/01/22 14:06 Lymph % (Auto) 34.2 % 04/01/22 14:06 [place] % (Auto) 7.9 % 04/01/22 14:06 Eos % (Auto) 2.7 % 04/01/22 14:06 Baso % (Auto) 0.8 % 04/01/22 14:06 Neut # (Auto) 3.56 10^3/uL (1.8-7.7) 04/01/22 14:06 Lymph # (Auto) 2.3 10^3/uL (0.8-4.8) 04/01/22 14:06 [place] # (Auto) 0.5 10^3/uL (0.2-0.9) 04/01/22 14:06 Eos # (Auto) 0.2 10^3/uL (0.0-0.8) 04/01/22 14:06 Baso # (Auto) 0.1 10^3/uL (0.0-0.1) 04/01/22 14:06 Nucleated RBC % (auto) 0 % 04/01/22 14:06 Nucleated RBCs # 0.0 /100WBC 04/01/22 14:06 PT 15.30 SECONDS (12.1-14.9) H 04/01/22 14:20 INR 1.17 (0.8-1.2) 04/01/22 14:20 APTT 29.8 SECONDS (23.9-36.7) 04/01/22 14:20 Sodium 139 mmol/L (136-145) 04/01/22 14:06 Potassium 3.4 mmol/L (3.5-5.1) L 04/01/22 14:06 Chloride 105 mmol/L (98-107) 04/01/22 14:06 Carbon Dioxide 20 mmol/L (22-29) L 04/01/22 14:06 Anion Gap 17.4 (5-19) 04/01/22 14:06 BUN 14 mg/dL (8-23) 04/01/22 14:06 Creatinine 1.0 mg/dL (0.5-0.9) H 04/01/22 14:06 GFR Calculation 55.0 mL/min (90-130) L 04/01/22 14:06 Glucose 116 mg/dL (65-115) H 04/01/22 14:06 Calculated Osmolality 289 mOsm/kg (285-295) 04/01/22 14:06 Calcium 8.7 mg/dL (8.5-10.5) 04/01/22 14:06 Magnesium 1.9 mg/dL (1.7-2.3) 04/01/22 14:06 Total Bilirubin 0.8 mg/dL (0.15-1.2) 04/01/22 14:06 AST 12 U/L (0-32) 04/01/22 14:06 ALT 11 U/L (0-33) 04/01/22 14:06 Alkaline Phosphatase 52 IU/L (35-105) 04/01/22 14:06 Troponin T Baseline 8 ng/L (0-10) 04/01/22 14:06 Troponin T 120 Minute 8.58 ng/L (0-10) 04/01/22 16:29 NT-Pro-B Natriuret Pep 124 pg/mL (0-125) 04/01/22 14:06 Total Protein 6.1 g/dL (6.6-8.7) L 04/01/22 14:06 Albumin 4.0 g/dL (3.5-5.2) 04/01/22 14:06 Globulin 2.1 g/dL (1.3-4.6) 04/01/22 14:06 TSH 1.05 uIU/mL (0.27-4.20) 04/01/22 14:06 A&P Assessment and plan (1) Dizziness: Extensive work-up done in the ER. CT head, CTA head and neck results appreciated. Most likely not related to neurological etiology. Could be related to positional change or orthostatic versus cardiac in nature secondary to arrhythmia or bradycardia. Telemetry. TSH within normal limits. Check vitamin B12, folate level, urine drug screen, urinalysis, lipid panel, A1c. Check orthostatics. Check echocardiogram. If any regional wall motion abnormality on echocardiogram will plan for cardiac stress test. Status: Acute (2) Bradycardia: Telemetry. Status: Acute (3) Irregular heart rate: Normal sinus rhythm with occasional APCs. Continue to monitor on telemetry. Most likely patient would need event monitor on discharge to rule out intermittent atrial fibrillation. Status: Acute (4) Anemia, macrocytic: Hemoglobin seems to be stable around 9.3. Check vitamin B12, folate, iron panel. 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
[2022-04-01 17:11] LABS: Troponin 5 2HR 8.58 ng/L (0-10)
--- NOTE | 2022-04-01 17:11 | USCV_ITS ---
Dina Harrison Age: 71 Gender: F : 1950 Exam Date: 04/01/2022 18:51 Ordering Phys: Johnathon Hurst MD Technologist: ARNULFO [place] [facility] [place]: bradycardia, dizziness. No history of cardiac intervention per patient. BP: 127 / 86 HR: 55 Rhythm: Sinus Technical Quality: Adequate MEASUREMENTS (Male / Female) Normal Values 2D ECHO LV Diastolic Diameter PLAX 4.4 cm 4.2 - 5.9 / 3.9 - 5.3 cm LV Systolic Diameter PLAX 2.8 cm IVS Diastolic Thickness 1.4 cm 0.6 - 1.0 / 0.6 - 0.9 cm IVS Systolic Thickness 1.7 cm LVPW Diastolic Thickness 1.3 cm 0.6 - 1.0 / 0.6 - 0.9 cm LVPW Systolic Thickness 1.6 cm LVOT Diameter 1.8 cm LV Ejection Fraction 2D Teich 66.0 % LV Ejection Fraction MOD 2C 70.7 % LV Ejection Fraction 2C AL 71.1 % LA Diameter 3.8 cm LA Width 3.2 cm LA Height 5.5 cm RA Width 3.8 cm RA Height 4.0 cm Aorta at Sinotubular Diameter 2.7 cm IVC Diameter 1.8 cm M-MODE Aortic Annulus Diameter 3.1 cm LA Ao Ratio MM 1.2 MV E Point Septal Separation 0.6 cm DOPPLER AV Peak Velocity 147.0 cm/s LVOT Peak Velocity 119.0 cm/s AV Area Cont Eq vti 2.0 cm squared AV Area Cont Eq pk 2.1 cm squared MV Peak Velocity 104.0 cm/s MV Area PHT 3.5 cm squared Mitral E to A Ratio 1.1 MV E' Velocity 54.0 cm/s Mitral E to MV E' Ratio 7.4 Mitral E to LV E' Lateral Ratio 7.4 Mitral E to LV E' Septal Ratio 7.6 TR Peak Velocity 229.0 cm/s TR Peak Gradient 21.0 mmHg TV Peak E Velocity 42.0 cm/s Right Atrial Pressure 5.0 mmHg Pulmonary Artery Systolic Pressu 26.0 mmHg PV Peak Velocity 98.0 cm/s RV Acceleration Time 0.1 s RV Ejection Time 0.4 s RV AcT/ET 0.3 FINDINGS Left Ventricle Normal left ventricular size and systolic function, EF 68 %. Mild left ventricular hypertrophy. No regional wall motion abnormalities. Right Ventricle The right ventricle is normal in size and function. Right Atrium The right atrium is normal in size. Left Atrium Mildly increased left atrial size. Mitral Valve Mild mitral annular calcification. Mild mitral valve regurgitation. Aortic Valve No gross abnormalities noted Tricuspid Valve Moderate tricuspid valve regurgitation. Pulmonic Valve No gross abnormalities noted Pericardium Normal pericardium without effusion. Aorta Normal aortic annulus size. IVC Inferior vena cava not visualized. CONCLUSIONS Normal left ventricular size and systolic function, EF 68 %. Mild left ventricular hypertrophy. No regional wall motion abnormalities. Mild mitral annular calcification. Mild mitral valve regurgitation. Mildly increased left atrial size. Moderate tricuspid valve regurgitation. Estimated pulmonary artery peak systolic pressure 26 mmHg There is no pericardial effusion. There are no intracardiac masses. No similar previous studies are available for comparison Dr Magali Lou MD [facility] (Electronically Signed) Final Date: 02 April 2022 09:30 S
[2022-04-01 17:23] LABS: Troponin 5 2HR Delta 0.58 ABS# (0-10)
[2022-04-01 19:05] LABS: Iron 76 ug/dL (37-145); Percent Saturation 42.4 % (20-50); Total Iron Binding Capacity 179 mcg/dl; Unsaturated Iron Binding 103 ug/dL (112-347)
[2022-04-01 19:22] LABS: Vitamin B12 424 pg/mL (232-1245)
[2022-04-01] MEDS: albuterol 8 gm MDI 2 PUFF INHALATION (19:49)
--- NOTE | 2022-04-01 20:11 | ECG_ITS ---
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 Measurements Intervals [place] Rate: 72 P: 77 IA: 164 QRS: 38 QRSD: 84 T: 56 QT: 401 QTc: 442 Interpretive Statements SINUS RHYTHM Compared to ECG 04/01/2022 16:36:54 Sinus bradycardia no longer present Electronically Signed On 04-02-2022 17:16:11 CDT by Magali Lou M.D. [id number]
[2022-04-01 20:33] LABS: Troponin 5 6HR 7.23 ng/L (0-10)
[2022-04-01 20:50] LABS: Troponin 5 6HR Delta -0.77 ng/L (0-12)
[2022-04-01 21:47] LABS: Folate Level > 20.0 ng/mL (4.8-37.3)
[2022-04-01] MEDS: famotidine 20 mg Tablet PO (21:51)
[2022-04-02] VITALS: BP 96/55; PULSE 65; RESP 17; TEMP 36.4; O2SAT 92
[2022-04-02 00:27] LABS: Add Urine Microscopic? YES; Bilirubin Urine Neg (Negative); Blood Urine Neg (Negative); Glucose Urine UA Norm (Normal); Ketones Urine 1+ (Negative); Leukocyte Esterase Urine Trace (Negative); Nitrate Urine Negative (Negative); Protein Urine Neg (Negative); Specific Gravity, Urine 1.005 (1.005-1.030); Urine Appearance Clear (CLEAR); Urine Color Yellow (Yellow); Urobilinogen Urine Norm (Negative); pH Urine 7 (5-7)
[2022-04-02 00:28] LABS: Add Urine Culture? No; Bacteria Urine TRACE /hpf; RBC Urine 0-4 /hpf (0-2); Squamous Epithelial Cell Urine 0-4 /hpf (0-5); WBC Urine 0-4 /hpf (0-5)
[2022-04-02 00:31] LABS: Amphetamines Screen Urine Negative (Negative); Barbiturates Screen Urine Negative (Negative); Benzodiazepines Screen Urine Negative (Negative); Cocaine Screen Urine Negative (Negative); Opiate Screen Urine Negative (Negative); PCP Screen Urine Negative (Negative); THC Screen Urine Negative (Negative)
[2022-04-02 04:00] VITALS: BP 115/67; PULSE 61; RESP 16; TEMP 36.4; O2SAT 93
[2022-04-02 05:00] VITALS: BP 113/70; BP 144/68; BP 158/67; PULSE 61; PULSE 71
[2022-04-02 05:03] LABS: Basophils % 0.3 %; Eosinophils # 0.2 10^3/uL (0.0-0.8); Eosinophils % 3.1 %; Hematocrit 28.3 % (37.0-47.0); Hemoglobin 9.3 g/dL (11.5-15.3); Lymphocytes # 2.8 10^3/uL (0.8-4.8); Lymphocytes % 46.3 %; Mean Corpuscular HGB Conc 32.9 g/dL (30.0-36.0); Mean Corpuscular Hemoglobin 34.7 pg (28.0-34.0); Mean Corpuscular Volume 105.6 fl (81-99); Mean Platelet Volume 11.5 fL (7.4-10.4); Monocytes # 0.4 10^3/uL (0.2-0.9); Monocytes % 7.3 %; Neutrophils # 2.56 10^3/uL (1.8-7.7); Neutrophils % 42.3 %; Nucleated Red Blood Cells % 0 %; Platelet Count 437 10^3/cmm (130-400); Red Blood Count 2.68 10^6/uL (4.1-5.3); Red Cell Distribution Width 18.6 % (12.1-15.1); White Blood Count 6.1 10^3/uL (4.0-10.0)
[2022-04-02 05:24] LABS: Chol HDL Ratio 2.33 mg/dL (0.0-4.40); Cholesterol 128 mg/dL (0-200); HDL Cholesterol 55 mg/dL (60-100); LDL Cholesterol Calculated 57 mg/dL (50-129); Triglycerides 81 mg/dL (0-150); VLDL Cholestrol Calculation 16 mg/dL (0-30)
[2022-04-02 05:26] LABS: Alanine Aminotransferase 10 U/L (0-33); Albumin Level 3.6 g/dL (3.5-5.2); Alkaline Phosphatase 46 IU/L (35-105); Aspartate Amino Transferase 11 U/L (0-32); Blood Urea Nitrogen 11 mg/dL (8-23); Calcium 9.2 mg/dL (8.5-10.5); Carbon Dioxide 25 mmol/L (22-29); Chloride 110 mmol/L (98-107); Creatinine Clr Calc Pharmacy 64.8029; Globulin 2.3 g/dL (1.3-4.6); Glomerular Filtration Rate 71.1 mL/min (90-130); Glucose 98 mg/dL (65-115); Magnesium 2.2 mg/dL (1.7-2.3); Osmolality Calculated 291 mOsm/kg (285-295); Phosphorus 4.1 mg/dL (2.5-4.5); Sodium 141 mmol/L (136-145); Total Bilirubin 0.8 mg/dL (0.15-1.2); Total Protein 5.9 g/dL (6.6-8.7)
[2022-04-02 05:30] LABS: Estmated Average Glucose 100; Hemoglobin A1C 5.1 % (4.0-6.0)
[2022-04-02 05:43] LABS: Anion Gap 10.4 (5-19); Potassium 4.4 mmol/L (3.5-5.1)
[2022-04-02 06:00] VITALS: PULSE 72
[2022-04-02 07:45] VITALS: BP 107/66; PULSE 67; RESP 17; TEMP 36.4; O2SAT 95
[2022-04-02] MEDS: ferrous sulfate EC 325 mg Tablet PO (09:05)
[2022-04-02] MEDS: levothyroxine 50 mcg Tablet PO (09:05)
[2022-04-02] MEDS: famotidine 20 mg Tablet PO (09:06)
[2022-04-02] MEDS: fluticasone nasal spray 16gm Btl 1 SPRAY NASAL (09:10)
[2022-04-02 11:03] VITALS: BP 110/64; PULSE 63; RESP 16; TEMP 37.1; O2SAT 93
--- NOTE | 2022-04-02 11:57 | PM.DCS ---
Discharge Providers Date of Admission: 04/01/22 17:03 Date of Discharge: April 02, 2022 Attending Provider at Admission: Johnathon Hurst MD Attending Provider at Discharge: Johnathon Hurst MD Diagnoses at Discharge Discharge Diagnosis (1) Dizziness: Status: Acute (2) Bradycardia: Status: Acute (3) Irregular heart rate: Status: Acute (4) Anemia, macrocytic: Status: Acute (5) Hypothyroid: Status: Chronic Reason for Visit Reason for Visit: BRADYCARDIA Hospital Course Hospital Course Dina Harrison is a 71 year old female with past medical history of hypothyroidism who has been on amoxicillin for last 2 weeks for ear infection first after insect bite and then bronchitis comes into the ER today after having 1 episode of vertigo at a hair of salon on standing up from sitting position. Head spinning around, blackening in front of her eye. Denies any aura, tinnitus, weakness in any of limbs, loss of bowel or bladder functions. Patient states she has been having nausea since morning so did not have her breakfast. Denied having any similar complaints last night or when she woke up today morning. Denies having any chest pain at rest or exertion today or in the last few weeks. Does complain of having few episodes of feeling of palpitations with her heart rate either going too high or too low for the last few months. Denies any changes in medications, cough, abdominal pain. Does complaint postnasal drip. Patient was admitted to hospital further evaluation and management of vertigo. She was started on IV hydration. Her telemetry during hospitalization remained stable. Patient did not have any further episodes. Orthostatic remain negative. Echocardiogram was done which showed normal EF, mild LVH without regional wall motion abnormality, moderate TR with PASP of 26. During hospitalization her hemoglobin remained stable. She has been discharged in hemodynamically stable condition with event monitor to rule out any arrhythmia. She is advised to stop taking amoxicillin. She is been discharged on Flonase and was advised to follow-up with a primary care provider within next 1 week. Physical Exam Narrative: General: No acute distress, AO x3 HEENT: PERRLA, pupils bilaterally equal and reactive Chest: Normal vesicular breath sounds, no added sounds, equal good air entry bilaterally CVS: S1-S2 regular, no murmurs, no tachycardia, no gallops, no rubs Abdomen: Soft, nontender, no organomegaly, bowel sounds present Neuro: No focal deficits, no facial deformity, AO x3, power 5/5 in all limbs Discharge Data Studies Completed and Pending Completed Studies During Hospitalization Category Date Time Status CT head wo con* [id number] Stat Cat Scan 04/01/22 14:10 Completed CTA head neck [CT angio headneck* [id number]] Stat Cat Scan 04/01/22 14:10 Completed XR chest 1V portable [id number] Urgent Exams 04/01/22 14:10 Completed CV. echo complete* [id number] Routine Ultrasound 04/01/22 17:11 Completed Radiology Impressions Chest X-Ray 04/01/22 14:10 IMPRESSION: No acute findings. Head CT 04/01/22 14:10 IMPRESSION: 1. No acute intracranial hemorrhage or edema. 2. Mild atrophy and small vessel ischemic disease. Head/Neck CTA 04/01/22 14:10 IMPRESSION: 1. No significant carotid artery stenosis. No plaque, stenosis or dissection evident. 2. 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 Arteries are intact with no atherosclerotic disease. Echocardiogram: CONCLUSIONS ?Normal left ventricular size and systolic function, EF 68 %. ?Mild left ventricular hypertrophy. No regional wall motion?abnormalities. ?Mild mitral annular calcification. Mild mitral valve?regurgitation. ?Mildly increased left atrial size. ?Moderate tricuspid valve regurgitation. ?Estimated pulmonary artery peak systolic pressure 26 mmHg?There is no pericardial effusion. ?There are no intracardiac masses. ?No similar previous studies are available for comparison ?Dr Magali Lou MD [facility] ?(Electronically Signed) ?Final Date:? ? ? 02 April 2022 ? 09:30 Laboratory Results WBC 6.1 10^3/uL (4.0-10.0) 04/02/22 04:14 RBC 2.68 10^6/uL (4.1-5.3) L 04/02/22 04:14 Hgb 9.3 g/dL (11.5-15.3) L 04/02/22 04:14 Hct 28.3 % (37.0-47.0) L 04/02/22 04:14 MCV 105.6 fl (81-99) H 04/02/22 04:14 MCH 34.7 pg (28.0-34.0) H 04/02/22 04:14 MCHC 32.9 g/dL (30.0-36.0) 04/02/22 04:14 RDW 18.6 % (12.1-15.1) H 04/02/22 04:14 Plt Count 437 10^3/cmm (130-400) H 04/02/22 04:14 MPV 11.5 fL (7.4-10.4) H 04/02/22 04:14 Neut % (Auto) 42.3 % 04/02/22 04:14 Lymph % (Auto) 46.3 % 04/02/22 04:14 [place] % (Auto) 7.3 % 04/02/22 04:14 Eos % (Auto) 3.1 % 04/02/22 04:14 Baso % (Auto) 0.3 % 04/02/22 04:14 Neut # (Auto) 2.56 10^3/uL (1.8-7.7) 04/02/22 04:14 Lymph # (Auto) 2.8 10^3/uL (0.8-4.8) 04/02/22 04:14 [place] # (Auto) 0.4 10^3/uL (0.2-0.9) 04/02/22 04:14 Eos # (Auto) 0.2 10^3/uL (0.0-0.8) 04/02/22 04:14 Baso # (Auto) 0.0 10^3/uL (0.0-0.1) 04/02/22 04:14 Nucleated RBC % (auto) 0 % 04/02/22 04:14 Nucleated RBCs # 0.0 /100WBC 04/02/22 04:14 PT 15.30 SECONDS (12.1-14.9) H 04/01/22 14:20 INR 1.17 (0.8-1.2) 04/01/22 14:20 APTT 29.8 SECONDS (23.9-36.7) 04/01/22 14:20 Sodium 141 mmol/L (136-145) 04/02/22 04:14 Potassium 4.4 mmol/L (3.5-5.1) 04/02/22 04:14 Chloride 110 mmol/L (98-107) H 04/02/22 04:14 Carbon Dioxide 25 mmol/L (22-29) 04/02/22 04:14 Anion Gap 10.4 (5-19) 04/02/22 04:14 BUN 11 mg/dL (8-23) 04/02/22 04:14 Creatinine 0.8 mg/dL (0.5-0.9) 04/02/22 04:14 GFR Calculation 71.1 mL/min (90-130) L 04/02/22 04:14 Glucose 98 mg/dL (65-115) 04/02/22 04:14 Estimat Average Glucose 100 04/02/22 04:14 Hemoglobin A1c 5.1 % (4.0-6.0) 04/02/22 04:14 Calculated Osmolality 291 mOsm/kg (285-295) 04/02/22 04:14 Calcium 9.2 mg/dL (8.5-10.5) 04/02/22 04:14 Phosphorus 4.1 mg/dL (2.5-4.5) 04/02/22 04:14 Magnesium 2.2 mg/dL (1.7-2.3) 04/02/22 04:14 Iron 76 ug/dL (37-145) 04/01/22 14:40 TIBC 179 mcg/dl 04/01/22 14:40 % Saturation 42.4 % (20-50) 04/01/22 14:40 Unsat Iron Binding 103 ug/dL (112-347) L 04/01/22 14:40 Total Bilirubin 0.8 mg/dL (0.15-1.2) 04/02/22 04:14 AST 11 U/L (0-32) 04/02/22 04:14 ALT 10 U/L (0-33) 04/02/22 04:14 Alkaline Phosphatase 46 IU/L (35-105) 04/02/22 04:14 Troponin T Baseline 8 ng/L (0-10) 04/01/22 14:06 Troponin T 120 Minute 8.58 ng/L (0-10) 04/01/22 16:29 Delta Troponin T 0.58 ABS# (0-10) 04/01/22 16:29 Troponin T Hi Sens 6Hr 7.23 ng/L (0-10) 04/01/22 20:05 Troponin T Hi Sens 6Hr Delta -0.77 ng/L (0-12) L 04/01/22 20:05 NT-Pro-B Natriuret Pep 124 pg/mL (0-125) 04/01/22 14:06 Total Protein 5.9 g/dL (6.6-8.7) L 04/02/22 04:14 Albumin 3.6 g/dL (3.5-5.2) 04/02/22 04:14 Globulin 2.3 g/dL (1.3-4.6) 04/02/22 04:14 Triglycerides 81 mg/dL (0-150) 04/02/22 04:14 Cholesterol 128 mg/dL (0-200) 04/02/22 04:14 LDL Cholesterol, Calc 57 mg/dL (50-129) 04/02/22 04:14 Total VLDL Cholesterol 16 mg/dL (0-30) 04/02/22 04:14 HDL Cholesterol 55 mg/dL (60-100) L 04/02/22 04:14 Cholesterol/HDL Ratio 2.33 mg/dL (0.0-4.40) 04/02/22 04:14 Vitamin B12 424 pg/mL (232-1245) 04/01/22 14:40 Folate > 20.0 ng/mL (4.8-37.3) 04/01/22 20:05 TSH 1.05 uIU/mL (0.27-4.20) 04/01/22 14:06 Urine Color Yellow (Yellow) 04/02/22 00:05 Urine Appearance Clear (CLEAR) 04/02/22 00:05 Urine pH 7 (5-7) 04/02/22 00:05 Ur Specific [place] 1.005 (1.005-1.030) 04/02/22 00:05 Urine Protein Neg (Negative) 04/02/22 00:05 Urine Glucose (UA) Norm (Normal) 04/02/22 00:05 Urine Ketones 1+ (Negative) H 04/02/22 00:05 Urine Blood Neg (Negative) 04/02/22 00:05 Urine Nitrate Negative (Negative) 04/02/22 00:05 Urine Bilirubin Neg (Negative) 04/02/22 00:05 Urine Urobilinogen Norm mg/dL (Negative) 04/02/22 00:05 Ur Leukocyte Esterase Trace (Negative) H 04/02/22 00:05 Urine RBC 0-4 /hpf (0-2) H 04/02/22 00:05 Urine WBC 0-4 /hpf (0-5) H 04/02/22 00:05 Ur Squamous Epith Cells 0-4 /hpf (0-5) H 04/02/22 00:05 Amorphous Sediment Not Reportable 04/02/22 00:05 Urine Bacteria Trace /hpf (NONE) 04/02/22 00:05 Urine Opiates Screen Negative ng/mL (Negative) 04/02/22 00:05 Ur Barbiturates Screen Negative ng/mL (Negative) 04/02/22 00:05 Ur Phencyclidine Scrn Negative ng/mL (Negative) 04/02/22 00:05 Ur Amphetamines Screen Negative ng/mL (Negative) 04/02/22 00:05 U Benzodiazepines Scrn Negative ng/mL (Negative) 04/02/22 00:05 Urine Cocaine Screen Negative ng/mL (Negative) 04/02/22 00:05 U Marijuana (THC) Screen Negative ng/mL (Negative) 04/02/22 00:05 Vitals Last Vital Signs Temp 98.7 F 04/02/22 11:03 Pulse 63 04/02/22 11:03 Resp 16 04/02/22 11:03 BP 110/64 04/02/22 11:03 Pulse Ox 93 04/02/22 11:03 Discharge Plan Discharge Patient Disposition: Home Condition: Stable Prescriptions: New meclizine 25 mg Tablet 25 mg PO TID PRN (Reason: Dizziness) Qty: 14 0RF fluticasone propionate 50 mcg/actuation [place],Suspension 1 spray nasal BID Qty: 30 0RF Continued levothyroxine [Synthroid] 50 mcg tablet 50 mcg PO DAILY Qty: 90 1RF FeroSul 325 mg (65 mg iron) tablet 325 mg PO DAILY 0RF albuterol sulfate 90 mcg/actuation HFA aerosol inhaler 2 puff INHALATION Q6H PRN (Reason: Shortness Of Breath) 0RF Discontinued amoxicillin 500 mg capsule 500 mg PO BID 0RF Discharge Orders: Discharge Order (Routine); Ordered 04/02/22 Ordered By: Johnathon Hurst Other Ambulatory Orders: MCT/Event Monitor 21 Days (Routine) Timeframe: 1 Day Facility: [facility] - Location: Radiology Ordered By: Johnathon Aris Discharge Diet: Regular Discharge Activity: Resume usual activity and Increase activity as tolerated Patient Instructions: Opioid Safety Activity Restrictions/Additional Instructions: Please follow-up with your primary care provider within next 2 weeks. You can take meclizine for vertigo on as-needed basis twice daily. Please check your blood pressure daily at home and maintain a blood pressure diary. You have event monitor which will remain in place for next 21 days and monitor your heart rhythm going forward. Discharge Attestations Time Spent in Discharge Care*: greater than 30 min Specific Discharge Activities: educating patient, discussing with case management assistant/social workers/dc planners, documenting/other paperwork and evaluating patient/reviewing data Status at Discharge: Cognitive status at discharge: cognitively intact, Behavioral status at discharge: cooperative, Functional status at discharge: independent ambulation, Overall status at discharge: patient is back to baseline Quality Metrics Clinical Quality Measures [ No reported AMI, CVA or VTE this stay] Coding Level of Care Code Acute Chg FW DC note Diagnoses Dizziness R42 Bradycardia R00.1 Irregular heart rate I49.9 Anemia, macrocytic D53.9 Hypothyroid E03.9
--- NOTE | 2022-04-02 14:25 | PC.NURSE ---
dc'd pts piv and tele. discharge instructions reviewed, follow up appointments, the placement of event monitor and new medicaitons. no furhter questions at this time. pt left via [place] to taxi as her car is at the [facility] in [place].
== END 2022-04-02 14:25 | disposition home or self-care (01) ==
LOC: ER 17:26 → MEDSURG 18:51
PROVIDERS: Admitting Provider Student in an Organized Health Care Education/Training Program; Emergency Provider Emergency Medicine; Visit Provider Student in an Organized Health Care Education/Training Program
DX: R42 Dizziness and giddiness (principal); I49.9 Cardiac arrhythmia, unspecified; D53.9 Nutritional anemia, unspecified; E03.9 Hypothyroidism, unspecified
CPT/HCPCS: 36415; 70450; 70496; 70498; 71045; 80053; 80061; 80306; 81001; 82607; 82746; 83036; 83540; 83550; 83735; 83880; 84100; 84443; 84484; 85025; 85610; 85730; 93005; 93306; 94640; 96361; 96374; 99285; G0378; J1630; J3535; J7030; J8597; Q9967

== ENCOUNTER → 2022-04-05 13:14 | Outpatient (BNVA) | payer MEDICARE, SELFPAY | PROVIDERS: PCP Family Medicine; Visit Provider Internal Medicine Cardiovascular Disease | DX: Z53.9 Procedure and treatment not carried out, unspecified reason (principal) ==

== ENCOUNTER → 2022-04-14 15:35 | Outpatient (BNVA) | payer MEDICARE, SELFPAY | PROVIDERS: PCP Family Medicine; Visit Provider Otolaryngology | DX: X58.XXXA Exposure to other specified factors, initial encounter (principal); T16.1XXA Foreign body in right ear, initial encounter; H61.22 Impacted cerumen, left ear | CPT/HCPCS: 69210; 99213 ==

== ENCOUNTER 2023-09-08 14:24 | Oncology outpatient (recurring) (ONCR) | payer MEDICARE, OTHER, SELFPAY ==
[2023-09-08 15:58] LABS: Basophils # 0.1 10^3/uL (0.0-0.1); Basophils % 0.7 %; Eosinophils # 0.3 10^3/uL (0.0-0.8); Eosinophils % 3.9 %; Hematocrit 26.2 % (36-47); Lymphocytes # 2.6 10^3/uL (0.8-4.8); Lymphocytes % 37.4 %; Mean Corpuscular HGB Conc 33.6 g/dL (30-55); Mean Corpuscular Hemoglobin 36.7 pg (27-33); Mean Corpuscular Volume 109.2 fl (85-98); Mean Platelet Volume 12.1 fL (7.4-10.4); Monocytes # 0.5 10^3/uL (0.2-0.9); Monocytes % 7.1 %; Neutrophils % 50.6 %; Nucleated Red Blood Cells % 0 %; Platelet Count 476 10^3/cmm (157-399); Red Cell Distribution Width 20.4 % (12.1-15.1); Reticulocyte % 2.1 % (0.5-2.0); White Blood Count 6.92 10^3/uL (3.29-11.43)
[2023-09-08 16:19] LABS: Alanine Aminotransferase 10 U/L (0-33); Albumin Level 4.1 g/dL (3.5-5.2); Alkaline Phosphatase 62 U/L (35-105); Anion Gap 11.2 (5-19); Aspartate Amino Transferase 9 U/L (0-32); Blood Urea Nitrogen 21 mg/dL (8-23); Calcium 8.6 mg/dL (8.5-10.5); Carbon Dioxide 27 mmol/L (22-29); Chloride 107 mmol/L (98-107); Globulin 2.3 g/dL (1.3-4.6); Glucose 108 mg/dL (65-115); Homocysteine 10.69; Lactate Dehydrogenase 194 U/L (135-214); Osmolality Calculated 296 mOsm/kg (285-295); Potassium 4.2 mmol/L (3.5-5.1); Sodium 141 mmol/L (136-145); Total Bilirubin 0.7 mg/dL (0.15-1.2); Total Protein 6.4 g/dL (6.6-8.7)
[2023-09-08 16:34] LABS: Vitamin B12 293 pg/mL (232-1245)
[2023-09-08 16:48] LABS: Folate Level 4.1 ng/mL (4.8-37.3)
[2023-09-09 07:53] LABS: PROTEIN, TOTAL 6.2 g/dL (6.1-8.1)
[2023-09-09 12:20] LABS: KAPPA LIGHT CHAIN, FREE, SERUM 20.8 mg/L (3.3-19.4); LAMBDA LIGHT CHAIN, FREE, SERU 12.2 mg/L (5.7-26.3)
[2023-09-09 15:50] LABS: ALPHA 1 GLOBULIN 0.2 g/dL (0.2-0.3); ALPHA 2 GLOBULIN 0.4 g/dL (0.5-0.9); BETA 1 GLOBULIN 0.3 g/dL (0.4-0.6); BETA 2 GLOBULIN 0.3 g/dL (0.2-0.5); GAMMA GLOBULIN 0.9 g/dL (0.8-1.7)
[2023-09-11 01:54] LABS: Methylmalonic Acid 332 nmol/L (87-318)
== END 2023-09-18 23:59 | disposition home or self-care (01) ==
PROVIDERS: Internal Medicine Hematology & Oncology; PCP Family Medicine; Visit Provider Family Medicine
DX: D53.9 Nutritional anemia, unspecified (principal); Z13.6 Encounter for screening for cardiovascular disorders; Z78.0 Asymptomatic menopausal state; R16.0 Hepatomegaly, not elsewhere classified; Z79.899 Other long term (current) drug therapy
CPT/HCPCS: 36415; 80053; 82607; 82746; 83090; 83615; 83883; 83921; 84155; 84165; 85025; 85045; 86334; 99204

== ENCOUNTER 2023-09-22 09:29 | Outpatient (CLI) | payer MEDICARE, OTHER, SELFPAY ==
--- NOTE | 2023-09-22 09:45 | US_ITS ---
WS: [id number] Complete ABDOMINAL ULTRASOUND HISTORY: enlarged liver, anemia COMPARISON: None available. Liver: 14.4 cm in length. Normal size liver and echogenicity. No bile duct dilatation or mass. Portal Vein: Normal hepatopetal flow with monophasic waveform. Gallbladder: Normally distended gallbladder with no stones or wall thickening. CBD: 0.2 cm Pancreas: Normal size and echogenicity. Right kidney: 8.7 cm x 4.5 x 4.0 cm. Cortex:1.0 cm. Low normal size kidney. Otherwise negative. Left kidney: 9.5 cm x 4.5 cm x 5.3 cm. Cortex: 1.0 cm. Normal size and echogenicity. No hydronephrosis or mass. Spleen: Normal. Aorta and IVC: Unremarkable abdominal aorta and IVC. Impression: 1. No acute abdominal abnormality is identified. 2. Normal gallbladder. 3. Low normal size RIGHT kidney.
== END 2023-09-22 09:30 | disposition home or self-care (01) ==
LOC: RAD 09:29
PROVIDERS: PCP Family Medicine; Visit Provider Internal Medicine Medical Oncology
DX: D53.9 Nutritional anemia, unspecified (principal); R16.0 Hepatomegaly, not elsewhere classified
CPT/HCPCS: 76700

== ENCOUNTER 2023-09-23 12:55 | Outpatient (CLI) | payer MEDICARE, OTHER, SELFPAY ==
--- NOTE | 2023-09-23 12:59 | MM_ITS ---
WS: [id number] BILATERAL 3D TOMOSYNTHESIS DIGITAL SCREENING MAMMOGRAPHY WITH CAD CLINICAL INFORMATION: screening HISTORY: Screening mammogram. No current complaints. COMPARISON: 2020 TECHNIQUE: Bilateral CC and MLO views. FINDINGS: The breasts are composed of heterogeneous fibroglandular density tissue, which can limit the detectio n of small underlying mass lesions. Bilateral nodular densities are similar in appearance compared to 2021. No suspicious mass, asymmetry, calcifications, or architectural distortion. No evidence of mal ignancy. Vascular calcification. Punctate and lucent centered calcification. IMPRESSION: MM/[place] [id number] BI-RADS: 2-Benign FOLLOW UP: 1 Year Follow-up Recommend return to annual screening mammography.
--- NOTE | 2023-09-23 13:00 | XR_ITS ---
WS: [id number] DEXA (DUAL ENERGY X-RAY ABSORPTIOMETRY) Bone mineral density was performed using a siOPTICA machine. HISTORY: asymptomatic post menapausal state COMPARISON: None available. Lumbar spine BMD (L1-L4): 0.988 g/cm2 T score: -1.6 Z score: -0.3 Total hip BMD: Left: 0.975 g/cm2. T score: -0.3 Z score: 1.0 Right: 0.949 g/cm2. T score: -0.5 Z score: 0.8 10 year probability of a major osteoporotic fracture is 9.1%. IMPRESSION: OSTEOPENIA based upon the WHO classification for females.
== END 2023-09-23 12:56 | disposition home or self-care (01) ==
PROVIDERS: PCP Family Medicine; Visit Provider Internal Medicine Hematology & Oncology
DX: Z12.31 Encounter for screening mammogram for malignant neoplasm of breast (principal); Z78.0 Asymptomatic menopausal state; D53.9 Nutritional anemia, unspecified; R16.0 Hepatomegaly, not elsewhere classified; M85.80 Other specified disorders of bone density and structure, unspecified site
CPT/HCPCS: 77063; 77067; 77080

== ENCOUNTER → 2023-10-06 14:31 | Outpatient (BNVA) | payer MEDICARE, OTHER, SELFPAY | PROVIDERS: PCP Family Medicine; Referring Provider Internal Medicine Medical Oncology; Visit Provider Surgery | DX: K21.9 Gastro-esophageal reflux disease without esophagitis (principal); Z12.11 Encounter for screening for malignant neoplasm of colon; D53.9 Nutritional anemia, unspecified | CPT/HCPCS: 99024; 99204 ==

== ENCOUNTER 2023-10-18 12:00 | Oncology outpatient (recurring) (ONCR) | payer MEDICARE, OTHER, SELFPAY ==
[2023-09-20 08:14] VITALS: BP 120/66; PULSE 73; TEMP 36.4; O2SAT 97
[2023-09-20 08:33] LABS: Reticulocyte % 1.9 % (0.5-2.0)
[2023-09-20 08:33] LABS: Basophils # 0.1 10^3/uL (0.0-0.1); Basophils % 0.9 %; Eosinophils # 0.3 10^3/uL (0.0-0.8); Eosinophils % 4.7 %; Hematocrit 29.5 % (36-47); Lymphocytes # 1.8 10^3/uL (0.8-4.8); Lymphocytes % 34.3 %; Mean Corpuscular HGB Conc 32.5 g/dL (30-55); Mean Corpuscular Hemoglobin 35.3 pg (27-33); Mean Corpuscular Volume 108.5 fl (85-98); Mean Platelet Volume 11.5 fL (7.4-10.4); Monocytes # 0.5 10^3/uL (0.2-0.9); Monocytes % 9.1 %; Neutrophils % 50.4 %; Nucleated Red Blood Cells % 0 %; Platelet Count 487 10^3/cmm (157-399); Red Blood Count 2.72 10^6/uL (3.85-5.65); Red Cell Distribution Width 20.9 % (12.1-15.1); White Blood Count 5.36 10^3/uL (3.29-11.43)
[2023-09-20 08:53] LABS: Lactate Dehydrogenase 194 U/L (135-214)
[2023-09-20 09:09] LABS: Vitamin B12 342 pg/mL (232-1245)
[2023-09-20 09:30] LABS: Folate Level 5.1 ng/mL (4.8-37.3)
[2023-10-18 12:43] LABS: Basophils % 0.6 %; Eosinophils # 0.2 10^3/uL (0.0-0.8); Eosinophils % 3.2 %; Hematocrit 27.8 % (36-47); Lymphocytes # 2.1 10^3/uL (0.8-4.8); Lymphocytes % 31.9 %; Mean Corpuscular HGB Conc 32.4 g/dL (30-55); Mean Corpuscular Hemoglobin 34.9 pg (27-33); Mean Corpuscular Volume 107.8 fl (85-98); Mean Platelet Volume 11.8 fL (7.4-10.4); Monocytes # 0.4 10^3/uL (0.2-0.9); Monocytes % 6.6 %; Neutrophils # 3.76 10^3/uL (1.8-7.7); Neutrophils % 57.2 %; Nucleated Red Blood Cells % 0.3 %; Platelet Count 493 10^3/cmm (157-399); Red Blood Count 2.58 10^6/uL (3.85-5.65); Red Cell Distribution Width 21.2 % (12.1-15.1); White Blood Count 6.56 10^3/uL (3.29-11.43)
[2023-10-18 13:30] LABS: Alanine Aminotransferase 13 U/L (0-33); Albumin Level 4.2 g/dL (3.5-5.2); Alkaline Phosphatase 61 U/L (35-105); Anion Gap 13.8 (5-19); Aspartate Amino Transferase 11 U/L (0-32); Blood Urea Nitrogen 21 mg/dL (8-23); Carbon Dioxide 24 mmol/L (22-29); Chloride 106 mmol/L (98-107); Ferritin 520 ng/mL (15-150); Globulin 2.4 g/dL (1.3-4.6); Glucose 106 mg/dL (65-115); Iron 136 ug/dL (37-145); Osmolality Calculated 293 mOsm/kg (285-295); Percent Saturation 70.4 % (20-50); Potassium 3.8 mmol/L (3.5-5.1); Sodium 140 mmol/L (136-145); Total Bilirubin 0.7 mg/dL (0.15-1.2); Total Iron Binding Capacity 193 mcg/dl; Total Protein 6.6 g/dL (6.6-8.7); Unsaturated Iron Binding 57 ug/dL (112-347); Vitamin B12 261 pg/mL (232-1245)
[2023-10-18 13:33] LABS: Folate Level 7.7 ng/mL (4.8-37.3)
[2023-10-18 14:51] LABS: Immunoglobulin IGA 188 mg/dL (70-400); Immunoglobulin IGG 925 mg/dL (700-1600); Immunoglobulin IGM 40 mg/dL (40-230); Lactate Dehydrogenase 194 U/L (135-214)
[2023-10-19 10:21] LABS: PROTEIN, TOTAL 6.3 g/dL (6.1-8.1)
[2023-10-19 11:15] LABS: KAPPA LIGHT CHAIN, FREE, SERUM 22.3 mg/L (3.3-19.4); KAPPA/LAMBDA LIGHT CHAINS FREE 1.59 (0.26-1.65)
[2023-10-19 13:44] LABS: Creatinine, Random Urine 101 mg/dL (20-275); Protein, Total, Random 5 mg/dL (5-24); Protein/Creatinine Ratio 50 mg/g creat (24-184)
[2023-10-20 08:24] LABS: Albumin,Urine Random 0 %; Alpha-1-Globulins Urine Random 0 %; Alpha-2-Globulins Urine Random 0 %; Beta-Globulin,Urine Random 0 %; Gamma Globulin,Urine Random 0 %
[2023-10-20 13:03] LABS: ALBUMIN 4.2 g/dL (3.8-4.8); ALPHA 1 GLOBULIN 0.3 g/dL (0.2-0.3); ALPHA 2 GLOBULIN 0.4 g/dL (0.5-0.9); BETA 1 GLOBULIN 0.3 g/dL (0.4-0.6); BETA 2 GLOBULIN 0.3 g/dL (0.2-0.5); GAMMA GLOBULIN 0.8 g/dL (0.8-1.7)
[2023-10-20 15:50] LABS: Copper Level 86 mcg/dL (70-175); Zinc Level, Serum or Plasma 52 mcg/dL (60-130)
== END 2023-10-19 23:59 | disposition home or self-care (01) ==
PROVIDERS: Internal Medicine; Internal Medicine Medical Oncology; PCP Family Medicine; Visit Provider Family Medicine
DX: D53.9 Nutritional anemia, unspecified (principal); Z53.9 Procedure and treatment not carried out, unspecified reason; R53.83 Other fatigue
CPT/HCPCS: 36415; 80053; 82525; 82570; 82607; 82728; 82746; 82784; 83540; 83550; 83615; 83883; 84155; 84156; 84165; 84166; 84630; 85025; 85045; 86334; 99214

== ENCOUNTER 2023-11-15 12:12 | Oncology outpatient (recurring) (ONCR) | payer MEDICARE, OTHER, SELFPAY ==
[2023-11-15 12:39] LABS: Basophils # 0.1 10^3/uL (0.0-0.1); Eosinophils # 0.2 10^3/uL (0.0-0.8); Hematocrit 28.7 % (36-47); Lymphocytes # 2.8 10^3/uL (0.8-4.8); Lymphocytes % 37.9 %; Mean Corpuscular HGB Conc 33.1 g/dL (30-55); Mean Corpuscular Hemoglobin 35.1 pg (27-33); Mean Corpuscular Volume 105.9 fl (85-98); Mean Platelet Volume 11.6 fL (7.4-10.4); Monocytes # 0.6 10^3/uL (0.2-0.9); Monocytes % 8.5 %; Neutrophils # 3.61 10^3/uL (1.8-7.7); Neutrophils % 49.3 %; Nucleated Red Blood Cells % 0.4 %; Platelet Count 604 10^3/cmm (157-399); Red Blood Count 2.71 10^6/uL (3.85-5.65); Red Cell Distribution Width 20.7 % (12.1-15.1); White Blood Count 7.31 10^3/uL (3.29-11.43)
[2023-11-15 12:56] LABS: Alanine Aminotransferase 16 U/L (0-33); Albumin Level 4.4 g/dL (3.5-5.2); Alkaline Phosphatase 63 U/L (35-105); Anion Gap 16.1 (5-19); Aspartate Amino Transferase 14 U/L (0-32); Blood Urea Nitrogen 12 mg/dL (8-23); Calcium 9.1 mg/dL (8.5-10.5); Carbon Dioxide 23 mmol/L (22-29); Chloride 103 mmol/L (98-107); Globulin 2.5 g/dL (1.3-4.6); Glucose 107 mg/dL (65-115); Lactate Dehydrogenase 216 U/L (135-214); Osmolality Calculated 286 mOsm/kg (285-295); Potassium 4.1 mmol/L (3.5-5.1); Sodium 138 mmol/L (136-145); Total Bilirubin 1.2 mg/dL (0.15-1.2); Total Protein 6.9 g/dL (6.6-8.7)
[2023-11-15 15:35] LABS: Add Urine Microscopic? NO; Charge for UA Resulting for Rev
[2023-11-15 16:00] LABS: Bilirubin Urine Neg (Negative); Blood Urine Neg (Negative); Glucose Urine UA Norm (Normal); Ketones Urine Negative (Negative); Leukocyte Esterase Urine Negative (Negative); Nitrate Urine Negative (Negative); Protein Urine Neg (Negative); Urine Appearance Clear (CLEAR); Urine Color Yellow (Yellow); Urobilinogen Urine Norm (Negative); pH Urine 5 (5-7)
== END 2023-11-17 23:59 | disposition home or self-care (01) ==
PROVIDERS: Internal Medicine; Nurse Practitioner Family; PCP Family Medicine; Visit Provider Family Medicine
DX: D53.9 Nutritional anemia, unspecified (principal); Z78.0 Asymptomatic menopausal state; Z79.899 Other long term (current) drug therapy; R82.998 Other abnormal findings in urine; R10.9 Unspecified abdominal pain
CPT/HCPCS: 36415; 80053; 81003; 83615; 85025; 99214

== ENCOUNTER 2023-12-20 12:29 | Oncology outpatient (recurring) (ONCR) | payer MEDICARE, OTHER, SELFPAY ==
[2023-12-20 12:44] LABS: Basophils # 0.1 10^3/uL (0.0-0.1); Eosinophils # 0.2 10^3/uL (0.0-0.8); Eosinophils % 2.9 %; Hematocrit 28.1 % (36-47); Lymphocytes # 2.4 10^3/uL (0.8-4.8); Lymphocytes % 39.9 %; Mean Corpuscular HGB Conc 32.7 g/dL (30-55); Mean Corpuscular Hemoglobin 34.6 pg (27-33); Mean Corpuscular Volume 105.6 fl (85-98); Monocytes # 0.5 10^3/uL (0.2-0.9); Monocytes % 9.1 %; Neutrophils % 46.9 %; Nucleated Red Blood Cells % 0 %; Platelet Count 478 10^3/cmm (157-399); Red Blood Count 2.66 10^6/uL (3.85-5.65); Red Cell Distribution Width 21.7 % (12.1-15.1); White Blood Count 5.96 10^3/uL (3.29-11.43)
[2023-12-20 13:00] LABS: Alanine Aminotransferase 15 U/L (0-33); Albumin Level 4.3 g/dL (3.5-5.2); Alkaline Phosphatase 62 U/L (35-105); Anion Gap 14.6 (5-19); Aspartate Amino Transferase 12 U/L (0-32); Blood Urea Nitrogen 18 mg/dL (8-23); Calcium 9.7 mg/dL (8.5-10.5); Carbon Dioxide 23 mmol/L (22-29); Chloride 109 mmol/L (98-107); Globulin 2.1 g/dL (1.3-4.6); Glucose 101 mg/dL (65-115); Lactate Dehydrogenase 210 U/L (135-214); Osmolality Calculated 296 mOsm/kg (285-295); Potassium 4.6 mmol/L (3.5-5.1); Sodium 142 mmol/L (136-145); Total Bilirubin 0.7 mg/dL (0.15-1.2); Total Protein 6.4 g/dL (6.6-8.7)
== END 2024-01-17 23:59 | disposition home or self-care (01) ==
PROVIDERS: Internal Medicine Medical Oncology; PCP Family Medicine; Visit Provider Family Medicine
DX: D53.9 Nutritional anemia, unspecified (principal); Z13.6 Encounter for screening for cardiovascular disorders; Z78.0 Asymptomatic menopausal state; R16.0 Hepatomegaly, not elsewhere classified; Z79.899 Other long term (current) drug therapy
CPT/HCPCS: 36415; 80053; 83615; 85025; 99214

== ENCOUNTER 2024-01-17 05:53 | Day surgery (SDC) | payer MEDICARE, OTHER, SELFPAY ==
--- NOTE | 2024-01-17 06:00 | W.PM.OPSFHP ---
Same Day Surgery H&P Indication for Procedure/HPI DATE OF PROCEDURE: January 17, 2024 CHIEF COMPLAINT/INDICATIONFOR SURGICAL PROCEDURE: anemia. PREOP DIAGNOSIS: blood loss anemia PLANNED PROCEDURE: Operation Date: 01/17/24 07:00 Proposed Procedures p [id number] egd [id number] colon G0121 screen colon A risk K21.9,Z12.11(Not Applicable) - Pawan Mayo MD s Colonoscopy(Not Applicable) - Pawan Mayo MD Medications/Allergies* Home Medications Medication Instructions Recorded Confirmed Type albuterol sulfate 90 mcg/actuation 2 puff inhalation Q6H PRN 04/01/22 01/12/24 History aerosol inhaler Shortness Of Breath fluticasone propionate 50 1 spray nasal BID PRN Congestion 09/08/23 01/12/24 History mcg/actuation nasal spray,suspension omeprazole 20 mg capsule,delayed 20 mg PO DAILY 09/08/23 01/12/24 History release Allergies/Adverse Reactions Allergy/AdvReac Type Severity Reaction Status Date / Time milk Allergy Severe anaphylaxis Verified 01/12/24 10:03 nylon Allergy Severe rash Verified 01/12/24 10:03 codeine Allergy Unknown Verified 01/12/24 10:03 lactase [From Dairy Aid] Allergy ALGY-Anaphy Verified 01/12/24 10:03 laxis latex AdvReac Mild UNKNOWN Verified 01/12/24 10:03 steroids Allergy Severe Unknown Uncoded 01/12/24 10:03 Pertinent History/Comorbid Conditions* Medical History (Updated 11/15/23 @ 14:31 by Kellen Schwab APRN) Anemia, macrocytic Atypical pneumonia BV (bacterial vaginosis) STD exposure Vaginal discharge Dysuria Adjustment disorder Surgical History (Updated 03/17/20 @ 13:45 by Maryjo Sylvester DO) H/O tubal ligation History of mandibular surgery Family History (Updated 03/28/20 @ 13:59 by Jacqueline Lovelace RN) Diabetes Father CAD (coronary artery disease) Mother Breast cancer Sister, Onset Age: 35 Family/Other, Onset Age: 60 maternal aunt maternal great aunt Grandmother, Onset Age: 98 maternal Hypertension Grandmother maternal Thyroid disease Sister Mother Stroke Mother Denies family history of Clotting disorder Hyperlipidemia Anesthesia complication Bleeding disorder Social History Smoking and tobacco/nicotine status: never used tobacco/nicotine Alcohol intake: current Alcohol intake frequency: few times a month Alcohol type: beer Substance/Drug Use: never Pertinent Exam Findings alert, oriented x 3, clear to auscultation bilaterally and regular rate & rhythm Recommendations Surgery/Procedure today Coding Level of Care Code Acute Code for [facility] Shila
[2024-01-17] MEDS: sodium chloride 0.9% 1,000 ML 30 ML IV (06:09)
[2024-01-17 06:13] VITALS: BMI 28.8
--- NOTE | 2024-01-17 06:26 | ANES.PREANE2 ---
Pre-Anesthetic Assessment Height/Weight: Height 1.63 m Weight 76.204 kg Preop Diagnosis: blood loss anemia Operation Date: 01/17/24 07:00 Proposed Procedures p [id number] egd [id number] colon G0121 screen colon A risk K21.9,Z12.11(Not Applicable) - Pawan Mayo MD s Colonoscopy(Not Applicable) - Pawan Mayo MD Familial anesthetic complications: None Was Beta Yue taken within 24 hours: N/A Was Clonidine taken within 24 hours: N/A Last intake: Intake Last Liquid Date 01/16/24 Last Liquid Time 20:00 Last Solid Date 01/15/24 Social Alcohol (Once a month) and No tobacco Exam alert, oriented x 3, clear to auscultation bilaterally and regular rate & rhythm Airway Submandibular: Other (Decreased opening d/t metal pins in jaw) Cervical ROM: within normal limits Mallampati: Class III Dentition: full Comments: Comments: Several missing, numerous caries, poor dentition History/ROS No significant history except as noted and No significant complaints Pulmonary Asthma and Exertional Dyspnea COVID November 2023, mild cold symptoms, back to baseline CV/HEM Atrial Fibrillation (History of afib), Anemia and Arrythmia CONCLUSIONS Normal left ventricular size and systolic function, EF 68 %. Mild left ventricular hypertrophy. No regional wall motion abnormalities. Mild mitral annular calcification. Mild mitral valve regurgitation. Mildly increased left atrial size. Moderate tricuspid valve regurgitation. Estimated pulmonary artery peak systolic pressure 26 mmHg There is no pericardial effusion. There are no intracardiac masses. No similar previous studies are available for comparison Chronic Renal Insufficiency Hepatic None reported GI Gastroesophageal Reflux Disease (Controlled with meds) and Peptic Ulcer Disease Metabolic Thyroid Disease [facility] [place] Rheumatoid Arthritis Neuropsych Neuropathy Anesthetic Plan ASA status: 2 Anesthesia: Anesthesia Evaluation, General and MAC Risk of > 500 ml blood loss (7ml/kg in children): No Medications/Allergies Home Medications Medication Instructions Recorded Confirmed Last Taken Type levothyroxine 50 mcg tablet 50 mcg PO DAILY #90 tabs 05/06/20 01/12/24 01/15/24 Rx (Synthroid) albuterol sulfate 90 mcg/actuation 2 puff inhalation Q6H PRN 04/01/22 01/17/24 Unknown History aerosol inhaler Shortness Of Breath cholecalciferol (vitamin D3) 1,250 50,000 unit PO .weekly #20 caps 09/08/23 01/12/24 01/12/24 Rx mcg (50,000 unit) capsule fluticasone propionate 50 1 spray nasal BID PRN Congestion 09/08/23 01/17/24 01/15/24 History mcg/actuation nasal spray,suspension omeprazole 20 mg capsule,delayed 20 mg PO DAILY 09/08/23 01/12/24 01/16/24 History release mecobalamin (vitamin B12) 1,000 1,000 mcg PO DAILY #30 tabs 10/18/23 01/12/24 01/15/24 Rx mcg chewable tablet (B12 Active) folic acid 1 mg tablet 1 mg PO DAILY #90 tabs 11/15/23 01/12/24 01/15/24 Rx Allergies Allergy/AdvReac Type Severity Reaction Status Date / Time milk Allergy Severe anaphylaxis Verified 01/17/24 06:12 nylon Allergy Severe rash Verified 01/17/24 06:12 codeine Allergy Unknown Verified 01/17/24 06:12 lactase [From Dairy Aid] Allergy ALGY-Anaphy Verified 01/17/24 06:12 laxis latex AdvReac Mild UNKNOWN Verified 01/17/24 06:12 steroids Allergy Severe Unknown Uncoded 01/17/24 06:12 Current Medications Generic Name Dose Route Start Last Admin Trade Name Freq PRN Reason Stop Dose Admin Sodium Chloride 1,000 mls @ 30 mls/hr 01/17/24 06:00 01/17/24 06:09 Sodium Chloride 0.9% IV 30 mls/hr .Q24H ETHEL Administration PFSH Anesthesia Medical History Anemia, macrocytic Atypical pneumonia BV (bacterial vaginosis) STD exposure Vaginal discharge Dysuria Adjustment disorder Surgical History H/O tubal ligation History of mandibular surgery Family History Sister Breast cancer, Onset Age: 35 Thyroid disease Mother CAD (coronary artery disease) Stroke Thyroid disease Family/Other Breast cancer, Onset Age: 60 maternal aunt maternal great aunt Grandmother Breast cancer, Onset Age: 98 maternal Hypertension maternal Father Diabetes Denies family history of Clotting disorder Hyperlipidemia Anesthesia complication Bleeding disorder Social History Smoking and tobacco/nicotine status: never used tobacco/nicotine Alcohol intake: current Alcohol intake frequency: few times a month Alcohol type: beer Substance/Drug Use: never Data Anesthesia Cardiac Studies: Echocardiogram 04/01/22 Cardiac Event Monitor 04/05/22
[2024-01-17 07:46] VITALS: BP 99/66; PULSE 78; RESP 18; TEMP 36.5; O2SAT 94
[2024-01-17 07:59] VITALS: BP 112/65; RESP 18; TEMP 36.1; O2SAT 96
--- NOTE | 2024-01-17 12:46 | ANE.PACU2 ---
Inpatient post-anesthesia follow up: Vital signs: Temperature 97.0 F Pulse Rate 78 Respiratory Rate 18 Blood Pressure 112/65 Pulse Oximetry 96 Oxygen Delivery Me thod Room Air Oxygen Flow Rate Fraction of Inspir ed Oxygen Hydration adequate: Yes Nausea and vomiting: No Pain level: 1 Mental status: Baseline
== END 2024-01-17 08:23 | disposition home or self-care (01) ==
PROVIDERS: PCP Family Medicine; Visit Provider Surgery
PROC: 0DJ08ZZ Inspection of Upper Intestinal Tract, Via Natural or Artificial Opening Endoscopic (ICD-10-PCS; CPT 43235; principal; 2024-01-17 07:00)
PROC: 0DJD8ZZ Inspection of Lower Intestinal Tract, Via Natural or Artificial Opening Endoscopic (ICD-10-PCS; CPT 45378; 2024-01-17 07:00)
DX: Z12.11 Encounter for screening for malignant neoplasm of colon (principal); K44.9 Diaphragmatic hernia without obstruction or gangrene; K29.50 Unspecified chronic gastritis without bleeding; D12.0 Benign neoplasm of cecum; K21.00 Gastro-esophageal reflux disease with esophagitis, without bleeding; D50.0 Iron deficiency anemia secondary to blood loss (chronic); I48.91 Unspecified atrial fibrillation; Z86.16 Personal history of COVID-19; Z87.11 Personal history of peptic ulcer disease; M06.9 Rheumatoid arthritis, unspecified
CPT/HCPCS: 43239; 45380; 88305; 88342; J2704; J7030

== ENCOUNTER → 2024-02-01 13:17 | Outpatient (BNVA) | payer MEDICARE, OTHER, SELFPAY | PROVIDERS: PCP Family Medicine; Visit Provider Surgery | DX: Z09 Encounter for follow-up examination after completed treatment for conditions other than malignant neoplasm (principal); K21.9 Gastro-esophageal reflux disease without esophagitis; D53.9 Nutritional anemia, unspecified | CPT/HCPCS: 99214 ==

== ENCOUNTER 2024-03-19 12:20 | Oncology outpatient (recurring) (ONCR) | payer MEDICARE, OTHER, SELFPAY ==
[2024-03-19 12:46] LABS: Basophils % 0.5 %; Eosinophils # 0.4 10^3/uL (0.0-0.8); Eosinophils % 6.6 %; Hematocrit 27.7 % (36-47); Lymphocytes # 2.4 10^3/uL (0.8-4.8); Lymphocytes % 42.8 %; Mean Corpuscular HGB Conc 32.9 g/dL (30-55); Mean Corpuscular Hemoglobin 35.1 pg (27-33); Mean Corpuscular Volume 106.9 fl (85-98); Monocytes # 0.5 10^3/uL (0.2-0.9); Monocytes % 8.9 %; Neutrophils # 2.29 10^3/uL (1.8-7.7); Nucleated Red Blood Cells % 0.5 %; Platelet Count 448 10^3/cmm (157-399); Red Blood Count 2.59 10^6/uL (3.85-5.65); Red Cell Distribution Width 23.6 % (12.1-15.1); White Blood Count 5.59 10^3/uL (3.29-11.43)
[2024-03-19 12:56] LABS: Alanine Aminotransferase 14 U/L (0-33); Albumin Level 4.2 g/dL (3.5-5.2); Alkaline Phosphatase 60 U/L (35-105); Anion Gap 13.6 (5-19); Aspartate Amino Transferase 14 U/L (0-32); Blood Urea Nitrogen 20 mg/dL (8-23); Calcium 9.1 mg/dL (8.5-10.5); Carbon Dioxide 26 mmol/L (22-29); Chloride 105 mmol/L (98-107); Globulin 2.4 g/dL (1.3-4.6); Glucose 95 mg/dL (65-115); Lactate Dehydrogenase 238 U/L (135-214); Osmolality Calculated 292 mOsm/kg (285-295); Potassium 4.6 mmol/L (3.5-5.1); Sodium 140 mmol/L (136-145); Total Protein 6.6 g/dL (6.6-8.7)
== END 2024-04-18 23:59 | disposition home or self-care (01) ==
PROVIDERS: Nurse Practitioner Family; PCP Family Medicine; Visit Provider Family Medicine
DX: D53.9 Nutritional anemia, unspecified (principal)
CPT/HCPCS: 36415; 80053; 83615; 85025; 99214

== ENCOUNTER 2024-07-10 11:47 | Oncology outpatient (recurring) (ONCR) | payer MEDICARE, OTHER, SELFPAY ==
[2024-07-10 12:22] LABS: Basophils % 0.3 %; Eosinophils # 0.2 10^3/uL (0.0-0.8); Eosinophils % 3.4 %; Hematocrit 26.5 % (36-47); Lymphocytes # 2.3 10^3/uL (0.8-4.8); Mean Corpuscular HGB Conc 32.8 g/dL (30-55); Mean Corpuscular Hemoglobin 35.7 pg (27-33); Mean Corpuscular Volume 108.6 fl (85-98); Mean Platelet Volume 11.4 fL (7.4-10.4); Monocytes # 0.5 10^3/uL (0.2-0.9); Monocytes % 7.9 %; Neutrophils # 3.06 10^3/uL (1.8-7.7); Neutrophils % 50.1 %; Nucleated Red Blood Cells % 0.3 %; Platelet Count 476 10^3/cmm (157-399); Red Blood Count 2.44 10^6/uL (3.85-5.65); Red Cell Distribution Width 22.2 % (12.1-15.1); White Blood Count 6.11 10^3/uL (3.29-11.43)
[2024-07-10 12:42] LABS: Alanine Aminotransferase 13 U/L (0-33); Albumin Level 4.5 g/dL (3.5-5.2); Alkaline Phosphatase 58 U/L (35-105); Anion Gap 12.1 (5-19); Aspartate Amino Transferase 14 U/L (0-32); Blood Urea Nitrogen 16 mg/dL (8-23); Calcium 9.1 mg/dL (8.5-10.5); Carbon Dioxide 26 mmol/L (22-29); Chloride 102 mmol/L (98-107); Globulin 2.3 g/dL (1.3-4.6); Glucose 94 mg/dL (65-115); Osmolality Calculated 283 mOsm/kg (285-295); Potassium 4.1 mmol/L (3.5-5.1); Sodium 136 mmol/L (136-145); Total Bilirubin 1.2 mg/dL (0.15-1.2); Total Protein 6.8 g/dL (6.6-8.7)
[2024-07-10 12:58] LABS: Vitamin B12 860 pg/mL (232-1245)
[2024-07-10 13:14] LABS: Folate Level > 20.0 ng/mL (4.8-37.3)
== END 2024-07-19 23:59 | disposition home or self-care (01) ==
PROVIDERS: Nurse Practitioner Family; PCP Family Medicine; Visit Provider Family Medicine
DX: D51.3 Other dietary vitamin B12 deficiency anemia (principal); Z79.899 Other long term (current) drug therapy
CPT/HCPCS: 36415; 80053; 82607; 82746; 85025; 99214

== ENCOUNTER 2024-10-11 08:00 | Oncology outpatient (recurring) (ONCR) | payer MEDICARE, OTHER, SELFPAY ==
[2024-10-09 13:50] LABS: Basophils % 0.6 %; Eosinophils # 0.2 10^3/uL (0.0-0.8); Hematocrit 22.7 % (36-47); Lymphocytes # 2.4 10^3/uL (0.8-4.8); Lymphocytes % 45.5 %; Mean Corpuscular HGB Conc 32.2 g/dL (30-55); Mean Corpuscular Hemoglobin 37.6 pg (27-33); Mean Platelet Volume 11.3 fL (7.4-10.4); Monocytes # 0.5 10^3/uL (0.2-0.9); Monocytes % 8.6 %; Neutrophils # 2.24 10^3/uL (1.8-7.7); Neutrophils % 41.9 %; Nucleated Red Blood Cells % 0.4 %; Platelet Count 470 10^3/cmm (157-399); Red Blood Count 1.94 10^6/uL (3.85-5.65); Red Cell Distribution Width 23.8 % (12.1-15.1); White Blood Count 5.34 10^3/uL (3.29-11.43)
[2024-10-09 14:17] LABS: Alanine Aminotransferase 16 U/L (0-33); Albumin Level 4.3 g/dL (3.5-5.2); Alkaline Phosphatase 68 U/L (35-105); Anion Gap 13.1 (5-19); Aspartate Amino Transferase 15 U/L (0-32); Blood Urea Nitrogen 13 mg/dL (8-23); Calcium 9.1 mg/dL (8.5-10.5); Carbon Dioxide 26 mmol/L (22-29); Chloride 106 mmol/L (98-107); Ferritin 530 ng/mL (15-150); Globulin 2.2 g/dL (1.3-4.6); Glucose 112 mg/dL (65-115); Iron 149 ug/dL (37-145); Osmolality Calculated 293 mOsm/kg (285-295); Percent Saturation 70.9 % (20-50); Potassium 4.1 mmol/L (3.5-5.1); Sodium 141 mmol/L (136-145); Total Bilirubin 0.9 mg/dL (0.15-1.2); Total Iron Binding Capacity 210 mcg/dl; Total Protein 6.5 g/dL (6.6-8.7); Unsaturated Iron Binding 61 ug/dL (112-347)
[2024-10-09 14:27] LABS: Slide Review Slide Review Perform
[2024-10-09 14:32] LABS: Vitamin B12 819 pg/mL (232-1245)
[2024-10-09 14:33] LABS: Folate Level 14.6 ng/mL (4.8-37.3)
[2024-10-11] MEDS: sodium chloride 0.9% 250 mL Bag IV (09:06)
[2024-10-11] MEDS: acetaminophen 325 mg Tablet 650 MG PO (09:06)
[2024-10-11] MEDS: diphenhydrAMINE 25 mg Capsule PO (09:07)
[2024-10-11 10:20] VITALS: BP 96/58; PULSE 64; RESP 18; TEMP 36.7; O2SAT 97
[2024-10-11 10:40] VITALS: BP 101/64; PULSE 64; RESP 18; TEMP 36.6; O2SAT 96
[2024-10-11 10:55] VITALS: BP 112/64; PULSE 64; RESP 18; TEMP 36.6; O2SAT 98
[2024-10-11 12:00] VITALS: BP 100/68; PULSE 64; RESP 18; TEMP 36.3; O2SAT 98
[2024-10-11 12:19] VITALS: BP 123/78; PULSE 81; RESP 18; TEMP 36.9; O2SAT 99
[2024-10-11 14:25] VITALS: BP 124/78; PULSE 68; RESP 18; TEMP 36.6; O2SAT 98
[2024-10-12 10:09] LABS: Soluble Transferrin Receptor 4.18 mg/L (0.76-1.76)
== END 2024-10-19 23:59 | disposition home or self-care (01) ==
PROVIDERS: Internal Medicine Hematology & Oncology; PCP Family Medicine; Visit Provider Family Medicine
DX: Z53.9 Procedure and treatment not carried out, unspecified reason (principal); D64.9 Anemia, unspecified; Z79.899 Other long term (current) drug therapy
CPT/HCPCS: 36415; 36430; 80053; 82607; 82728; 82746; 83540; 83550; 84238; 85025; 86850; 86900; 86920; 99214; J7050; P9016; P9040

== ENCOUNTER 2024-10-20 00:42 | Emergency (ER) | payer MEDICARE, OTHER, SELFPAY ==
[2024-10-20 00:46] VITALS: BP 105/62; PULSE 79; RESP 20; TEMP 36.6; O2SAT 99; BMI 27.8
--- NOTE | 2024-10-20 01:03 | ED_ITS ---
HPI - Nausea/Vomiting/Diarrhea 2 General: Chief complaint: Nausea/Vomiting/Diarrhea Stated complaint: N/V Time Seen by Provider: 10/20/24 00:56 History of Present Illness: Patient brought in by EMS with complaints of nausea vomiting. Patient thinks she ate some bad food. This started throughout the night. She vomited continuous for approximately 2 hours per her. She went to bed feeling just fine. She ate at a buffet that where she never eaten before. She was given Zofran en route per EMS patient feels little bit better currently. Diffuse achy abdominal pain secondary to vomiting. Related Data Home Medications ?Medication ?Instructions ?Recorded ?Confirmed albuterol sulfate 90 mcg/actuation 2 puff inhalation Q 6H PRN 04/01/22 10/09/24 aerosol inhaler Shortness Of Breath fluticasone propionate 50 1 spray nasal BID PRN Conges tion 09/08/23 10/09/24 mcg/actuation nasal spray,suspension mecobalamin (vitamin B12) 10,000 mcg IM .[id number] 03/1910/09/24 mcg solution for injection Previous Rx's ?Medication ?Instructions ?Recorded levothyroxine 50 mcg tablet 50 mcg PO DAILY #90 tabs 0 05/06/20 (Synthroid) cholecalciferol (vitamin D3) 1,250 50,000 unit PO .welaurent maddendarryl #20 caps 09/08/23 mcg (50,000 unit) capsule mecobalamin (vitamin B12) 1,000 1,000 mcg PO DAILY #30 tabs 10/18/23 mcg chewable tablet (B12 Active) folic acid 1 mg tablet 1 mg PO DAILY #90 tabs 11/15 omeprazole 20 mg capsule,delayed 20 mg PO BID #90 caps 01/17/24 release ondansetron HCl 4 mg tablet 4 mg PO Q8H PRN nausea and 10/20/24 vomiting #14 tabs Allergies Allergy/AdvReac Type Severity Reaction Status Date / Time milk Allergy Severe anaphylaxis Verified 10/09/24 14:28 nylon Allergy Severe rash Verified 10/09/24 14:28 gluten Allergy Intermediate ADR-Nausea Verified 10/09/24 14:28 codeine Allergy Unknown Verified 10/09/24 14:28 lactase (From Dairy Aid) Allergy ALGY-Anaphy Verified 10/09/24 14:28 laxis latex AdvReac Mild UNKNOWN Verified 10/09/24 14:28 steroids Allergy Severe Unknown Uncoded 10/09/24 14:28 Review of Systems 2 General: Reports: 10 or more systems reviewed and unremarkable except in HPI and below PFSH ED 2 PFSH: Medical History Anemia, macrocytic Atypical pneumonia BV (bacterial vaginosis) STD exposure Vaginal discharge Dysuria Adjustment disorder Surgical History H/O tubal ligation History of mandibular surgery Family History Sister Breast cancer, Onset Age: 35 Thyroid disease Mother CAD (coronary artery disease) Stroke Thyroid disease Family/Other Breast cancer, Onset Age: 60 maternal aunt maternal great aunt Grandmother Breast cancer, Onset Age: 98 maternal Hypertension maternal Father Diabetes Denies family history of Clotting disorder Hyperlipidemia Anesthesia complication Bleeding disorder Social History Smoking and tobacco/nicotine status: never used tobacco/nicotine Alcohol intake: current Alcohol intake frequency: few times a month Alcohol type: beer Substance/Drug Use: never Physical Exam 2 Const: COMMON NORMALS: no acute distress, average body habitus, patient oriented x3, no limitations, healthy appearing, alert and well nourished HENMT: COMMON NORMALS: normocephalic, atraumatic, hearing grossly normal bilaterally, external ears normal, Normal external nose present and moist oral mucous membranes HEAD & SCALP: normocephalic and atraumatic NOSE: Normal external nose present EXTERNAL EAR: Yes external ears normal Neck/C-Spine: COMMON NORMALS: no JVD Chest: COMMONS NORMALS: normal inspection of the chest and normal palpation of entire chest wall Resp: COMMON NORMALS: normal respiratory effort, No retractions, No use of accessory muscles and clear to auscultation bilaterally AUSCULTATION: clear to auscultation bilaterally Cardio: COMMON NORMALS: no JVD, regular rate, regular rhythm, S1 normal heart sound present, S2 normal heart sound present, No gallops present (Cardio), No clicks present (Cardio), No murmurs present (Cardio) and No rub (Cardio) R ATE: regular rate RHYTHM: regular rhythm HEART SOUNDS: S1 normal heart sound present and S2 normal heart sound present GI: COMMON NORMALS: Normal to inspection, nondistended, normoactive bowel sounds present, Soft to palpation, non-tender, No hepatosplenomegaly present and no masses PALPATION: Yes Soft to palpation and Yes No hepatosplenomegaly present Neuro: COMMON NORMALS: patient oriented x3 SENSORIUM/ORIENTATION: Yes alert Course 2 Vital Signs: Vital signs: Vital Signs Temperature 98 F 10/20/24 00:46 Pulse Rate 76 10/20/24 02:37 Respiratory Rate 20 H 10/20/24 00:46 Blood Pressure 148/87 10/20/24 02:37 Pulse Oximetry 95 10/20/24 02:37 MDM - Nausea/Vomiting/Diarrhea Medical Decision Making Lab work showed hemoglobin 8.8 which patient normally runs around there. Otherwise unremarkable. Physical exam was benign. Discussed these results with the patient. Patient is understanding will be discharged home. Lab Data 10/20/24 01:13 10/20/24 01:13 Laboratory Results WBC 8.56 10^3/uL (3.29-11.43) 10/20/24 01:13 RBC 2.53 10^6/uL (3.85-5.65) L 10/20/24 01:13 Hgb 8.80 g/dL (11.27-16.99) L 10/20/24 01:13 Hct 26.7 % (36-47) L 10/20/24 01:13 MCV 105.5 fl (85-98) H 10/20/24 01:13 MCH 34.8 pg (27-33) H 10/20/24 01:13 MCHC 33.0 g/dL (30-55) 10/20/24 01:13 RDW 25.0 % (12.1-15.1) H 10/20/24 01:13 Plt Count 407 10^3/cmm (157-399) H 10/20/24 01:13 MPV 11.0 fL (7.4-10.4) H 10/20/24 01:13 Neut % (Auto) 87.6 % 10/20/24 01:13 Lymph % (Auto) 4.9 % 10/20/24 01:13 Lamar % (Auto) 5.5 % 10/20/24 01:13 Eos % (Auto) 1.5 % 10/20/24 01:13 Baso % (Auto) 0.1 % 10/20/24 01:13 Neut # (Auto) 7.50 10^3/uL (1.8-7.7) 10/20/24 01:13 Lymph # (Auto) 0.4 10^3/uL (0.8-4.8) L 10/20/24 01:13 Lamar # (Auto) 0.5 10^3/uL (0.2-0.9) 10/20/24 01:13 Eos # (Auto) 0.1 10^3/uL (0.0-0.8) 10/20/24 01:13 Baso # (Auto) 0.0 10^3/uL (0.0-0.1) 10/20/24 01:13 Nucleated RBC % (auto) 0 % 10/20/24 01:13 Nucleated RBCs # 0.0 /100WBC 10/20/24 01:13 Sodium 137 mmol/L (136-145) 10/20/24 01:13 Potassium 3.8 mmol/L (3.5-5.1) 10/20/24 01:13 Chloride 101 mmol/L (98-107) 10/20/24 01:13 Carbon Dioxide 23 mmol/L (22-29) 10/20/24 01:13 Anion Gap 16.8 (5-19) 10/20/24 01:13 BUN 20 mg/dL (8-23) 10/20/24 01:13 Creatinine 1.1 mg/dL (0.5-0.9) H 10/20/24 01:13 GFR Calculation Not Reportable 10/20/24 01:13 Glucose 170 mg/dL (65-115) H 10/20/24 01:13 Calculated Osmolality 291 mOsm/kg (285-295) 10/20/24 01:13 Calcium 9.3 mg/dL (8.5-10.5) 10/20/24 01:13 Magnesium 1.8 mg/dL (1.7-2.3) 10/20/24 01:13 Total Bilirubin 1.3 mg/dL (0.15-1.2) H 10/20/24 01:13 AST 12 U/L (0-32) 10/20/24 01:13 ALT 15 U/L (0-33) 10/20/24 01:13 Alkaline Phosphatase 67 U/L (35-105) 10/20/24 01:13 Total Protein 6.6 g/dL (6.6-8.7) 10/20/24 01:13 Albumin 4.4 g/dL (3.5-5.2) 10/20/24 01:13 Globulin 2.2 g/dL (1.3-4.6) 10/20/24 01:13 All radiology interpretation(s) finalized by discharge Discharge Plan Discharge Patient Disposition: Home Clinical Impression: Food poisoning Anemia Qualifiers: Anemia type: unspecified type Qualified Code(s): D64.9 - Anemia, unspecified Condition: Stable Prescriptions: No Action levothyroxine [Synthroid] 50 mcg tablet 50 mcg PO DAILY Qty: 90 1RF fluticasone propionate 50 mcg/actuation spray,suspension 1 spray nasal BID PRN (Reason: Congestion) cholecalciferol (vitamin D3) 1,250 mcg (50,000 unit) capsule 50,000 unit PO .weekly Qty: 20 0RF mecobalamin (vitamin B12) [B12 Active] 1,000 mcg tablet,chewable 1,000 mcg PO DAILY Qty: 30 2RF folic acid 1 mg tablet 1 mg PO DAILY Qty: 90 0RF mecobalamin (vitamin B12) 10,000 mcg recon soln IM .[id number] omeprazole 20 mg capsule,delayed release(DR/EC) 20 mg PO BID Qty: 90 0RF albuterol sulfate 90 mcg/actuation HFA aerosol inhaler 2 puff INHALATION Q6H PRN (Reason: Shortness Of Breath) ondansetron HCl 4 mg tablet 4 mg PO Q8H PRN (Reason: nausea and vomiting) Qty: 14 0RF Discharge Orders: Discharge ED (Routine); Ordered 10/20/24 Ordered By: Enrico Ling Referrals: Glory Katz DO [Primary Care Provider] - 1 week Patient Instructions: Gastroenteritis (DC), Food Poisoning - Adult Activity Restrictions/Additional Instructions: Thank you for choosing [facility] for your healthcare needs today. Please realize that you were seen in the emergency department and that we are providing you with an emergency medical screening exam and this may not be a complete and all exclusive of all testing and/or medical workup we may need to determine your element or severity of your illness. It is very important that you follow-up as instructed with your primary care provider or specialist for the additional evaluation and to discuss your medical treatment plan. You may return to the emergency department should you have concerns or if your condition changes or worsens in any way. 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
[2024-10-20] MEDS: ondansetron 4 MG Tablet PO (01:19)
[2024-10-20 01:21] LABS: Basophils % 0.1 %; Eosinophils # 0.1 10^3/uL (0.0-0.8); Eosinophils % 1.5 %; Hematocrit 26.7 % (36-47); Lymphocytes # 0.4 10^3/uL (0.8-4.8); Lymphocytes % 4.9 %; Mean Corpuscular Hemoglobin 34.8 pg (27-33); Mean Corpuscular Volume 105.5 fl (85-98); Monocytes # 0.5 10^3/uL (0.2-0.9); Monocytes % 5.5 %; Neutrophils % 87.6 %; Nucleated Red Blood Cells % 0 %; Platelet Count 407 10^3/cmm (157-399); Red Blood Count 2.53 10^6/uL (3.85-5.65); White Blood Count 8.56 10^3/uL (3.29-11.43)
[2024-10-20 01:42] LABS: Alanine Aminotransferase 15 U/L (0-33); Albumin Level 4.4 g/dL (3.5-5.2); Alkaline Phosphatase 67 U/L (35-105); Anion Gap 16.8 (5-19); Aspartate Amino Transferase 12 U/L (0-32); Blood Urea Nitrogen 20 mg/dL (8-23); Calcium 9.3 mg/dL (8.5-10.5); Carbon Dioxide 23 mmol/L (22-29); Chloride 101 mmol/L (98-107); Creatinine Clr Calc Pharmacy 45.4028; Globulin 2.2 g/dL (1.3-4.6); Glucose 170 mg/dL (65-115); Magnesium 1.8 mg/dL (1.7-2.3); Osmolality Calculated 291 mOsm/kg (285-295); Potassium 3.8 mmol/L (3.5-5.1); Sodium 137 mmol/L (136-145); Total Bilirubin 1.3 mg/dL (0.15-1.2); Total Protein 6.6 g/dL (6.6-8.7)
[2024-10-20 02:36] VITALS: BP 148/87; PULSE 76; O2SAT 95
[2024-10-20 02:37] VITALS: BP 148/87; PULSE 76; O2SAT 95
== END 2024-10-20 02:28 | disposition home or self-care (01) ==
PROVIDERS: Emergency Provider Emergency Medicine; PCP Family Medicine
DX: A05.9 Bacterial foodborne intoxication, unspecified (principal); D64.9 Anemia, unspecified
CPT/HCPCS: 80053; 83735; 85025; 99283; Q0162

== ENCOUNTER 2024-10-20 03:24 | Emergency (ER) | payer MEDICARE, OTHER, SELFPAY ==
[2024-10-20 04:01] VITALS: BP 145/63; PULSE 79; RESP 16; TEMP 36.6; O2SAT 97; BMI 27.8
--- NOTE | 2024-10-20 04:24 | ED_ITS ---
HPI - Nausea/Vomiting/Diarrhea General: Chief complaint: Nausea/Vomiting/Diarrhea Stated complaint: n/v severe head pain Time Seen by Provider: 10/20/24 04:15 History of Present Illness: Patient was out of the waiting room and vomited 1 time and registration asked the patient if she wanted to check in she said sure so registration checked her back in for the nausea and vomiting. Patient also says she is having chills and sweating. Patient was just seen less than an hour ago and diagnosed with food poisoning lab work was obtained. Patient was discharged home. Patient was in the waiting room waiting for her ride. Related Data Home Medications Medication Instructions Recorded Confirmed albuterol sulfate 90 mcg/actuation 2 puff inhalation Q6H PRN 04/01/22 10/09/24 aerosol inhaler Shortness Of Breath fluticasone propionate 50 1 spray nasal BID PRN Congestion 09/08/23 10/09/24 mcg/actuation nasal spray,suspension mecobalamin (vitamin B12) 10,000 mcg IM .[id number] 03/19/24 10/09/24 mcg solution for injection Previous Rx's Medication Instructions Recorded levothyroxine 50 mcg tablet 50 mcg PO DAILY #90 tabs 05/06/20 (Synthroid) cholecalciferol (vitamin D3) 1,250 50,000 unit PO .weekly #20 caps 09/08/23 mcg (50,000 unit) capsule mecobalamin (vitamin B12) 1,000 1,000 mcg PO DAILY #30 tabs 10/18/23 mcg chewable tablet (B12 Active) folic acid 1 mg tablet 1 mg PO DAILY #90 tabs 11/15/23 omeprazole 20 mg capsule,delayed 20 mg PO BID #90 caps 01/17/24 release ondansetron HCl 4 mg tablet 4 mg PO Q8H PRN nausea and 10/20/24 vomiting #14 tabs Allergies Allergy/AdvReac Type Severity Reaction Status Date / Time milk Allergy Severe anaphylaxis Verified 10/09/24 14:28 nylon Allergy Severe rash Verified 10/09/24 14:28 gluten Allergy Intermediate ADR-Nausea Verified 10/09/24 14:28 codeine Allergy Unknown Verified 10/09/24 14:28 lactase [From Dairy Aid] Allergy ALGY-Anaphy Verified 10/09/24 14:28 laxis latex AdvReac Mild UNKNOWN Verified 10/09/24 14:28 steroids Allergy Severe Unknown Uncoded 10/09/24 14:28 Review of Systems General: Reports: 10 or more systems reviewed and unremarkable except in HPI and below PFSH ED PFSH: Medical History Anemia, macrocytic Atypical pneumonia BV (bacterial vaginosis) STD exposure Vaginal discharge Dysuria Adjustment disorder Surgical History H/O tubal ligation History of mandibular surgery Family History Sister Breast cancer, Onset Age: 35 Thyroid disease Mother CAD (coronary artery disease) Stroke Thyroid disease Family/Other Breast cancer, Onset Age: 60 maternal aunt maternal great aunt Grandmother Breast cancer, Onset Age: 98 maternal Hypertension maternal Father Diabetes Denies family history of Clotting disorder Hyperlipidemia Anesthesia complication Bleeding disorder Social History Smoking and tobacco/nicotine status: never used tobacco/nicotine Alcohol intake: current Alcohol intake frequency: few times a month Alcohol type: beer Substance/Drug Use: never Physical Exam Const: COMMON NORMALS: no acute distress, average body habitus, patient oriented x3, no limitations, healthy appearing, alert and well nourished HENMT: COMMON NORMALS: atraumatic, hearing grossly normal bilaterally, external ears normal, Normal external nose present and moist oral mucous membranes HEAD & SCALP: atraumatic NOSE: Normal external nose present EXTERNAL EAR: Yes external ears normal Neck/C-Spine: COMMON NORMALS: no JVD Chest: COMMONS NORMALS: normal inspection of the chest and normal palpation of entire chest wall Resp: COMMON NORMALS: normal respiratory effort, No retractions, No use of accessory muscles and clear to auscultation bilaterally AUSCULTATION: clear to auscultation bilaterally Cardio: COMMON NORMALS: no JVD, regular rate, regular rhythm, S1 normal heart sound present, S2 normal heart sound present, No gallops present (Cardio), No clicks present (Cardio), No murmurs present (Cardio) and No rub (Cardio) RATE: regular rate RHYTHM: regular rhythm HEART SOUNDS: S1 normal heart sound present and S2 normal heart sound present GI: COMMON NORMALS: Normal to inspection, nondistended, normoactive bowel sounds present, Soft to palpation, non-tender, No hepatosplenomegaly present and no masses PALPATION: Yes Soft to palpation and Yes No hepatosplenomegaly present Neuro: COMMON NORMALS: patient oriented x3 SENSORIUM/ORIENTATION: Yes alert Course Vital Signs: Vital signs: Vital Signs Temperature 98 F 10/20/24 04:01 Pulse Rate 88 10/20/24 05:14 Respiratory Rate 16 10/20/24 04:01 Blood Pressure 145/63 10/20/24 05:14 Pulse Oximetry 90 10/20/24 05:14 Oxygen Delivery Me thod Room Air 10/20/24 04:01 MDM - Nausea/Vomiting/Diarrhea Medical Decision Making Last note was reviewed, caceres influenza RSV negative, patient was given more Zofran. Patient did not have emesis during her stay in the ER. Patient be discharged home with a prescription. Medical Records I reviewed the patient's medical records. Lab Data I reviewed the patient's lab results. Laboratory Results Coronavirus (PCR) Negative (Negative) 10/20/24 04:28 Influenza A (PCR) Negative (Negative) 10/20/24 04:28 Influenza Type B (PCR) Negative (Negative) 10/20/24 04:28 RSV (PCR) Negative (Negative) 10/20/24 04:28 No radiology studies performed this visit Discharge Plan Discharge Patient Disposition: Home Clinical Impression: Food poisoning Condition: Stable Prescriptions: New ondansetron HCl 4 mg tablet 4 mg PO Q8H PRN (Reason: nausea and vomiting) Qty: 14 0RF No Action levothyroxine [Synthroid] 50 mcg tablet 50 mcg PO DAILY Qty: 90 1RF fluticasone propionate 50 mcg/actuation spray,suspension 1 spray nasal BID PRN (Reason: Congestion) cholecalciferol (vitamin D3) 1,250 mcg (50,000 unit) capsule 50,000 unit PO .weekly Qty: 20 0RF mecobalamin (vitamin B12) [B12 Active] 1,000 mcg tablet,chewable 1,000 mcg PO DAILY Qty: 30 2RF folic acid 1 mg tablet 1 mg PO DAILY Qty: 90 0RF mecobalamin (vitamin B12) 10,000 mcg recon soln IM .[id number] omeprazole 20 mg capsule,delayed release(DR/EC) 20 mg PO BID Qty: 90 0RF albuterol sulfate 90 mcg/actuation HFA aerosol inhaler 2 puff INHALATION Q6H PRN (Reason: Shortness Of Breath) Discharge Orders: Discharge ED (Routine); Ordered 10/20/24 Ordered By: Enrico Ling Referrals: Glory Katz DO [Primary Care Provider] - 1 week Patient Instructions: Food Poisoning - Adult Activity Restrictions/Additional Instructions: Thank you for choosing [facility] for your healthcare needs today. Please realize that you were seen in the emergency department and that we are providing you with an emergency medical screening exam and this may not be a complete and all exclusive of all testing and/or medical workup we may need to determine your element or severity of your illness. It is very important that you follow-up as instructed with your primary care provider or specialist for the additional evaluation and to discuss your medical treatment plan. You may return to the emergency department should you have concerns or if your condition changes or worsens in any way. Coding Level of Care Code ED Graduate Teaching Associate for Gabriele Fuchs
[2024-10-20] MEDS: ondansetron 4 MG Tablet 8 MG PO (04:27)
[2024-10-20 05:14] VITALS: BP 145/63; PULSE 88; O2SAT 90
[2024-10-20 05:15] LABS: Covid PCR NEGATIVE (Negative); Influenza A NEGATIVE (Negative); Influenza B NEGATIVE (Negative); Respiratory Syncytial Virus Ce NEGATIVE (Negative)
[2024-10-20 05:28] VITALS: BP 145/63; PULSE 88; O2SAT 96
== END 2024-10-20 06:19 | disposition home or self-care (01) ==
PROVIDERS: Emergency Provider Emergency Medicine; PCP Family Medicine
DX: A05.9 Bacterial foodborne intoxication, unspecified (principal); Z11.52 Encounter for screening for COVID-19
CPT/HCPCS: 87637; 99283; Q0162

== ENCOUNTER 2024-11-14 12:45 | Oncology outpatient (recurring) (ONCR) | payer MEDICARE, OTHER, SELFPAY ==
--- NOTE | 2024-11-05 15:30 | CTR_ITS ---
PROCEDURE INFORMATION: Exam: CT Abdomen And Pelvis With Contrast Exam date and time: 11/05/2024 3:55 PM Age: 74 years old Clinical indication: Condition or disease; Other: Macrocytic anemia; Prior surgery; Surgery date: 6+ months; Surgery type: Tubal; Additional info: Macrocytic anemia, according to oliveros patient needs CT for bmbx TECHNIQUE: Imaging protocol: Computed tomography of the abdomen and pelvis with contrast. Radiation optimization: All CT scans at this facility use at least one of these dose optimization techniques: automated exposure control; mA and/or kV adjustment per patient size (includes targeted exams where dose is matched to clinical indication); or iterative reconstruction. Contrast material: OMNI 350; Contrast volume: 100 ml; Contrast route: INTRAVENOUS (IV); COMPARISON: US abdomen complete* [id number] 09/22/2023 9:40 AM RADIATION DOSE METRICS: Total DLP (mGy-cm): 463.74 FINDINGS: Lungs: Visualized lung bases are clear. Liver: Unremarkable. Gallbladder and biliary ducts: The gallbladder is partially contracted. No radiopaque stones are seen. Pancreas: Unremarkable. Spleen: Unremarkable. Adrenal glands: Unremarkable. Kidneys and ureters: There are small parapelvic cysts within the kidneys bilaterally. No significant hydronephrosis. Stomach and bowel: There is a uzazi-pa-[id number] sized hiatal hernia.There is a moderate amount of fecal material throughout the colon.There is no significant bowel dilatation or evidence for obstruction. Appendix: Normal in caliber without evidence of appendicitis. Intraperitoneal space: Unremarkable. No free air. No significant fluid collection. Vasculature: The abdominal aorta is normal in caliber with mild atherosclerotic calcification noted. Lymph nodes: Unremarkable. No enlarged lymph nodes. Urinary bladder: There is slight thickening of the wall of the urinary bladder which may be due to incomplete distension. Other pathology, such as mild cystitis, can not be excluded. Reproductive: Unremarkable as visualized. Bones/joints: Intact. No acute fracture. There are degenerative changes, particularly at L4-L5, with grade 1 spondylolisthesis, moderate disc space narrowing, small posterior disc bulge, and facet joint arthropathy resulting in at least moderate central canal stenosis and moderate bilateral neural foraminal stenosis. Soft tissues: There is a tiny fat containing umbilical hernia. CT/CT abdomen pelvis w con* [id number] IMPRESSION: 1. Moderate amount of fecal material throughout the colon. No significant bowel dilatation or evidence for obstruction. 2. Mdfle-sp-hcitrljd sized hiatal hernia. 3. Slight thickening of the wall of the urinary bladder likely due to incomplete distension. Other pathology, such as cystitis, can not be excluded. Please correlate clinically. COMMENTS: Consistent with the [employer]'s Incidental Findings Committee white paper (J Am Nathaniel Radiol 2018): Any incidental renal lesion less than 1 cm or classified as too small to characterize, or any incidental cystic renal lesion characterized as simple-appearing, is likely benign. No follow-up imaging is recommended for these lesions per consensus recommendations based on imaging criteria.
[2024-11-05] MEDS: iohexol 350 mg/mL 500 mL Btl (per mL) PO (16:11)
[2024-11-05] MEDS: iohexol 350 mg/mL 500 mL Btl (per mL) IV (16:11)
[2024-11-14 12:46] LABS: Basophils % 0.4 %; Eosinophils # 0.3 10^3/uL (0.0-0.8); Eosinophils % 5.7 %; Hematocrit 22.5 % (36-47); Lymphocytes # 2.1 10^3/uL (0.8-4.8); Lymphocytes % 46.3 %; Mean Corpuscular Hemoglobin 34.3 pg (27-33); Mean Corpuscular Volume 107.1 fl (85-98); Mean Platelet Volume 11.4 fL (7.4-10.4); Monocytes # 0.4 10^3/uL (0.2-0.9); Monocytes % 9.5 %; Neutrophils # 1.71 10^3/uL (1.8-7.7); Neutrophils % 37.7 %; Nucleated Red Blood Cells % 0 %; Platelet Count 384 10^3/cmm (157-399); Red Cell Distribution Width 25.4 % (12.1-15.1); White Blood Count 4.54 10^3/uL (3.29-11.43)
[2024-11-14 13:02] LABS: INR 1.05 (0.8-1.2)
[2024-11-14 13:05] LABS: Alanine Aminotransferase 15 U/L (0-33); Albumin Level 4.3 g/dL (3.5-5.2); Alkaline Phosphatase 62 U/L (35-105); Anion Gap 12.2 (5-19); Aspartate Amino Transferase 12 U/L (0-32); Blood Urea Nitrogen 9 mg/dL (8-23); Calcium 8.8 mg/dL (8.5-10.5); Carbon Dioxide 24 mmol/L (22-29); Chloride 106 mmol/L (98-107); Creatinine Clr Calc Pharmacy 54.8954; Ferritin 687 ng/mL (15-150); Glucose 120 mg/dL (65-115); Iron 174 ug/dL (37-145); Lactate Dehydrogenase 217 U/L (135-214); Osmolality Calculated 286 mOsm/kg (285-295); Percent Saturation 88.3 % (20-50); Potassium 4.2 mmol/L (3.5-5.1); Sodium 138 mmol/L (136-145); Total Iron Binding Capacity 197 mcg/dl; Total Protein 6.3 g/dL (6.6-8.7); Unsaturated Iron Binding 23 ug/dL (112-347)
[2024-11-14 13:21] LABS: Vitamin B12 497 pg/mL (232-1245)
[2024-11-14 13:28] LABS: Folate Level 13.3 ng/mL (4.8-37.3)
[2024-11-17 17:24] LABS: Soluble Transferrin Receptor 3.12 mg/L (0.76-1.76)
== END 2024-11-16 23:59 | disposition home or self-care (01) ==
PROVIDERS: Internal Medicine; PCP Family Medicine; Visit Provider Internal Medicine Medical Oncology
DX: Z53.9 Procedure and treatment not carried out, unspecified reason (principal); D53.9 Nutritional anemia, unspecified; E55.9 Vitamin D deficiency, unspecified
CPT/HCPCS: 36415; 74177; 80053; 82607; 82728; 82746; 83540; 83550; 83615; 84238; 85025; 85610; 99213

== ENCOUNTER 2024-11-19 08:37 | Oncology outpatient (recurring) (ONCR) | payer MEDICARE, OTHER, SELFPAY ==
[2024-11-19] VITALS (13 sets, daily range): BP systolic 91–126; BP diastolic 15–71; PULSE 72–90; RESP 16; TEMP 36.6–37.3; O2SAT 95–99
== END 2024-12-17 23:59 | disposition home or self-care (01) ==
PROVIDERS: PCP Family Medicine; Visit Provider Internal Medicine Medical Oncology
DX: D64.9 Anemia, unspecified (principal)
CPT/HCPCS: 36430; 86850; 86900; 86920; P9016

== ENCOUNTER 2024-12-26 09:00 | Oncology outpatient (recurring) (ONCR) | payer MEDICARE, OTHER, SELFPAY ==
[2024-12-26] VITALS (10 sets, daily range): BP systolic 101–117; BP diastolic 52–72; PULSE 74–85; RESP 16–19; TEMP 36.1–37.6; O2SAT 96–100
[2024-12-26 09:33] LABS: Basophils % 0.5 %; Eosinophils # 0.2 10^3/uL (0.0-0.8); Eosinophils % 3.8 %; Lymphocytes # 1.7 10^3/uL (0.8-4.8); Lymphocytes % 42.1 %; Mean Corpuscular HGB Conc 32.1 g/dL (30-55); Mean Corpuscular Hemoglobin 31.9 pg (27-33); Mean Corpuscular Volume 99.5 fl (85-98); Mean Platelet Volume 12.3 fL (7.4-10.4); Monocytes # 0.5 10^3/uL (0.2-0.9); Monocytes % 11.8 %; Neutrophils # 1.65 10^3/uL (1.8-7.7); Neutrophils % 41.5 %; Nucleated Red Blood Cells % 0.5 %; Platelet Count 331 10^3/cmm (157-399); Red Blood Count 1.88 10^6/uL (3.85-5.65); Red Cell Distribution Width 28.6 % (12.1-15.1); White Blood Count 3.97 10^3/uL (3.29-11.43)
[2024-12-26 09:40] LABS: Erythrocyte Sedimentation Rate < 1 mm/hr (0-15)
[2024-12-26 09:42] LABS: Reticulocyte % 1.4 % (0.5-2.0)
[2024-12-26 09:50] LABS: Add RBC Morph Yes; Hematocrit 18.7 % (36-47)
[2024-12-26 09:51] LABS: Slide Review Slide Review Perform
[2024-12-26 09:52] LABS: Anisocytosis 3+; Pathology Refferal No; Poikilocytosis 2+; RBC Morph Comp Yes; Schistocytes Trace; Tear Drop Cells Trace
[2024-12-26 09:58] LABS: Alanine Aminotransferase 19 U/L (0-33); Albumin Level 4.2 g/dL (3.5-5.2); Alkaline Phosphatase 60 U/L (35-105); Anion Gap 15.4 (5-19); Aspartate Amino Transferase 14 U/L (0-32); Blood Urea Nitrogen 12 mg/dL (8-23); Calcium 9.1 mg/dL (8.5-10.5); Carbon Dioxide 24 mmol/L (22-29); Chloride 108 mmol/L (98-107); Creatinine Clr Calc Pharmacy 49.6518; Ferritin 718 ng/mL (15-150); Glucose 104 mg/dL (65-115); Iron 112 ug/dL (37-145); Lactate Dehydrogenase 209 U/L (135-214); Osmolality Calculated 296 mOsm/kg (285-295); Percent Saturation 61.8 % (20-50); Potassium 4.4 mmol/L (3.5-5.1); Sodium 143 mmol/L (136-145); Total Bilirubin 0.8 mg/dL (0.15-1.2); Total Iron Binding Capacity 181 mcg/dl; Total Protein 6.2 g/dL (6.6-8.7); Unsaturated Iron Binding 69 ug/dL (112-347)
[2024-12-26 10:12] LABS: Vitamin B12 539 pg/mL (232-1245)
[2024-12-26 10:14] LABS: Folate Level 8.2 ng/mL (4.8-37.3)
[2024-12-26] MEDS: sodium chloride 0.9% 250 mL Bag IV (10:56)
[2024-12-29 16:19] LABS: Methylmalonic Acid 151 nmol/L (69-390)
== END 2025-01-16 23:59 | disposition home or self-care (01) ==
PROVIDERS: Internal Medicine; PCP Family Medicine; Visit Provider Internal Medicine Medical Oncology
DX: D53.9 Nutritional anemia, unspecified (principal); Z79.899 Other long term (current) drug therapy
CPT/HCPCS: 36415; 36430; 80053; 82607; 82728; 82746; 83010; 83540; 83550; 83615; 83921; 85025; 85045; 85651; 86850; 86900; 86920; 99213; J7050; P9016

== ENCOUNTER → 2025-01-11 10:15 | Outpatient (BNVA) | payer MEDICARE, OTHER, SELFPAY | PROVIDERS: PCP Family Medicine; Visit Provider Internal Medicine Cardiovascular Disease | DX: R07.9 Chest pain, unspecified (principal) | CPT/HCPCS: 93005 ==

== ENCOUNTER 2025-01-11 11:23 | Emergency (ER) | payer MEDICARE, OTHER, SELFPAY ==
[2025-01-11] VITALS (13 sets, daily range): BP systolic 105–153; BP diastolic 57–99; PULSE 63–80; RESP 13–18; TEMP 36.7–37.2; O2SAT 95–100; BMI 29.0
--- NOTE | 2025-01-11 11:36 | ECG_ITS ---
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
--- NOTE | 2025-01-11 11:38 | XR_ITS ---
WS: [id number] Exam: XR chest 1V portable [id number] Date/Time of Exam: 01/11/2025 11:42 AM Reason For Exam: chest pain Comparison 04/01/2022. Lungs are fully inflated and clear. Normal cardiomediastinal silhouette. No pleural effusions. Bony structures are intact. XR/XR chest 1V portable [id number] IMPRESSION: 1. Negative chest.
--- NOTE | 2025-01-11 11:39 | ED_ITS ---
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 She has a history of microcytic anemia which using oncology for had a folic acid deficiency. She is not on any anticoagulants she did tell me at one time she had atrial fibrillation but had no follow-up and no medication for it no history of any coronary artery disease a week or 2 ago she had an episode of chest pain but none now. Patient states 2 days ago she had an episode of chest pain that lasted approximately 10 minutes. Resolved with rest. She did not miss anything that exacerbated it. Earlier this year she had a colonoscopy that had 3 benign polyps removed from her colon. She tells me she is scheduled to have a bone marrow evaluation at some point. She seen oncology earlier this month. According to oncology notes she has been transfused earlier this year in October. She denies hematochezia melena hematemesis coffee-ground nose hematuria. Associated symptoms: Deny chest pain, dyspnea or rash Related Data Home Medications ?Medication ?Instructions ?Recorded ?Confirmed mecobalamin (vitamin B12) 10,000 10,000 mcg IM .Q2week s 03/19/24 01/11/25 mcg solution for injection Previous Rx's ?Medication ?Instructions ?Recorded levothyroxine 50 mcg tablet 50 mcg PO DAILY #90 tabs 0 05/06/20 (Synthroid) omeprazole 20 mg capsule,delayed 20 mg PO BID #90 caps 01/17/24 release isosorbide mononitrate 30 mg 15 mg (1/2 x 30 mg) PO DA ZEINA #15 01/11/25 tablet,extended release 24 hr tabs Allergies Allergy/AdvReac Type Severity Reaction Status Date / Time milk Allergy Severe anaphylaxis Verified 01/11/25 10:31 nylon Allergy Severe rash Verified 01/11/25 10:31 gluten Allergy Intermediate ADR-Nausea Verified 01/11/25 10:31 codeine Allergy Unknown Verified 01/11/25 10:31 lactase (From Dairy Aid) Allergy ALGY-Anaphy Verified 01/11/25 10:31 laxis latex AdvReac Mild UNKNOWN Verified 01/11/25 10:31 steroids Allergy Severe Unknown Uncoded 01/11/25 10:31 Review of Systems 2 Const: Denies: fever(s) or chills Card: Denies: chest pain Resp: Denies: dyspnea GI: Denies: abdominal pain : Denies: dysuria, urinary frequency or urinary urgency Musc: Denies: neck pain or back pain Skin/Breast: Denies: rash PFSH ED 2 PFSH: Medical History Anemia Anemia, macrocytic Atypical pneumonia BV (bacterial vaginosis) STD exposure Vaginal discharge Dysuria Adjustment disorder Surgical History H/O tubal ligation History of mandibular surgery Family History Sister Breast cancer, Onset Age: 35 Thyroid disease Mother CAD (coronary artery disease) Stroke Thyroid disease Family/Other Breast cancer, Onset Age: 60 maternal aunt maternal great aunt Grandmother Breast cancer, Onset Age: 98 maternal Hypertension maternal Father Diabetes Denies family history of Clotting disorder Hyperlipidemia Anesthesia complication Bleeding disorder Social History Smoking and tobacco/nicotine status: never used tobacco/nicotine Alcohol intake: current Alcohol intake frequency: few times a month Alcohol type: beer Substance/Drug Use: never Physical Exam 2 Const: GENERAL APPEARANCE: cooperative ORIENTATION/CONSCIOUSNESS: Yes awake, Yes oriented to person, Yes oriented to place and Yes oriented to time HENMT: COMMON NORMALS: normocephalic, atraumatic and hearing grossly normal bilaterally HEAD & SCALP: normocephalic and atraumatic Resp: COMMON NORMALS: normal respiratory effort, No retractions, No use of accessory muscles and clear to auscultation bilaterally AUSCULTATION: clear to auscultation bilaterally Cardio: COMMON NORMALS: regular rate, regular rhythm and No murmurs present (Cardio) RATE: regular rate RHYTHM: regular rhythm GI: COMMON NORMALS: Soft to palpation and No hepatosplenomegaly present A USCULTATION: Yes normoactive bowel sounds PALPATION: Yes Soft to palpation, No Tenderness to palpation present (GI), No Guarding due to palpation present (GI) and Yes No hepatosplenomegaly present Extremity: COMMON NORMALS: normal to inspection, capillary refill normal, no clubbing, cyanosis or edema, no calf tenderness and no pedal edema Neuro: SENSORIUM/ORIENTATION: Yes oriented to person, Yes oriented to place and Yes oriented to time Skin: COMMON NORMALS: no rashes or lesions noted GENERAL SKIN EXAM: no rashes or lesions noted Course 2 Vital Signs: Vital signs: Vital Signs Temperature 98.4 F 01/11/25 14:25 Pulse Rate 69 01/11/25 14:25 Respiratory Rate 15 01/11/25 14:25 Blood Pressure 121/73 01/11/25 14:25 Pulse Oximetry 96 01/11/25 14:25 Oxygen Delivery Me thod Room Air 01/11/25 14:14 MDM - General Adult Medical Decision Making EKG done in the office showed lateral ST depression this is resolved on the EKG done here and on a second 1 as well troponins did not show significant increase both were less than 10. She did not have any chest pain today she had an episode yesterday and then another 1 to 2 weeks ago. Her hemoglobin is better than the previous 1 despite not having had any transfusions in the interim. Will transfuse a unit of blood as outpatient. Discussed with Dr. Bartholomew he agrees with discharge will discharge home on isosorbide mononitrate 15 mg daily and have her follow-up with cardiology next week avoid any exertional activities and return to the ER if has any episodes of chest pain Medical Records I reviewed the patient's medical records. Lab Data I reviewed the patient's lab results. 01/11/25 11:53 01/11/25 11:53 Radiology Impressions Chest X-Ray 01/11/25 11:38 IMPRESSION: 1. Negative chest. Laboratory Results WBC 3.31 10^3/uL (3.29-11.43) 01/11/25 11:53 RBC 2.35 10^6/uL (3.85-5.65) L 01/11/25 11:53 Hgb 7.40 g/dL (11.27-16.99) L 01/11/25 11:53 Hct 23.7 % (36-47) L 01/11/25 11:53 MCV 100.9 fl (85-98) H 01/11/25 11:53 MCH 31.5 pg (27-33) 01/11/25 11:53 MCHC 31.2 g/dL (30-55) 01/11/25 11:53 RDW 23.9 % (12.1-15.1) H 01/11/25 11:53 Plt Count 307 10^3/cmm (157-399) 01/11/25 11:53 MPV 11.1 fL (7.4-10.4) H 01/11/25 11:53 Neut % (Auto) 43.8 % 01/11/25 11:53 Lymph % (Auto) 40.2 % 01/11/25 11:53 [place] % (Auto) 12.7 % 01/11/25 11:53 Eos % (Auto) 2.7 % 01/11/25 11:53 Baso % (Auto) 0.3 % 01/11/25 11:53 Neut # (Auto) 1.45 10^3/uL (1.8-7.7) L 01/11/25 11:53 Lymph # (Auto) 1.3 10^3/uL (0.8-4.8) 01/11/25 11:53 [place] # (Auto) 0.4 10^3/uL (0.2-0.9) 01/11/25 11:53 Eos # (Auto) 0.1 10^3/uL (0.0-0.8) 01/11/25 11:53 Baso # (Auto) 0.0 10^3/uL (0.0-0.1) 01/11/25 11:53 Nucleated RBC % (auto) 0 % 01/11/25 11:53 Nucleated RBCs # 0.0 /100WBC 01/11/25 11:53 Sodium 139 mmol/L (136-145) 01/11/25 11:53 Potassium 4.2 mmol/L (3.5-5.1) 01/11/25 11:53 Chloride 105 mmol/L (98-107) 01/11/25 11:53 Carbon Dioxide 23 mmol/L (22-29) 01/11/25 11:53 Anion Gap 15.2 (5-19) 01/11/25 11:53 BUN 15 mg/dL (8-23) 01/11/25 11:53 Creatinine 0.9 mg/dL (0.5-0.9) 01/11/25 11:53 GFR Calculation Not Reportable 01/11/25 11:53 Glucose 109 mg/dL (65-115) 01/11/25 11:53 Calculated Osmolality 289 mOsm/kg (285-295) 01/11/25 11:53 Calcium 9.0 mg/dL (8.5-10.5) 01/11/25 11:53 Total Bilirubin 1.3 mg/dL (0.15-1.2) H 01/11/25 11:53 AST 13 U/L (0-32) 01/11/25 11:53 ALT 14 U/L (0-33) 01/11/25 11:53 Alkaline Phosphatase 66 U/L (35-105) 01/11/25 11:53 Troponin T Baseline 7 ng/L (0-10) 01/11/25 11:53 Troponin T 120 Minute 9.97 ng/L (0-10) 01/11/25 13:38 Delta Troponin T 2.97 ABS# (0-10) 01/11/25 13:38 Total Protein 6.3 g/dL (6.6-8.7) L 01/11/25 11:53 Albumin 4.4 g/dL (3.5-5.2) 01/11/25 11:53 Globulin 1.9 g/dL (1.3-4.6) 01/11/25 11:53 Blood Type O Positive 01/11/25 11:53 Rho(D) Type Rh positive 01/11/25 11:53 Antibody Screen Negative 01/11/25 11:53 Crossmatch See Detail 01/11/25 11:53 All radiology interpretation(s) finalized by discharge Discharge Plan Discharge Patient Disposition: Home Clinical Impression: Macrocytic anemia, Atypical chest pain Condition: Stable Prescriptions: New isosorbide mononitrate 30 mg tablet extended release 24 hr 15 mg PO DAILY Qty: 15 0RF No Action levothyroxine [Synthroid] 50 mcg tablet 50 mcg PO DAILY Qty: 90 1RF mecobalamin (vitamin B12) 10,000 mcg recon soln 10,000 mcg IM .[id number] omeprazole 20 mg capsule,delayed release(DR/EC) 20 mg PO BID Qty: 90 0RF Discharge Orders: Discharge ED (Routine); Ordered 01/11/25 Ordered By: Vu Zavaleta Referrals: Gianna,Glory L, DO [Primary Care Provider] - Discharge Diet: Usual diet Discharge Activity: Limit activity as instructed Patient Instructions: Opioid Safety, Pain Management Activity Restrictions/Additional Instructions: Thank you for choosing [facility] for your healthcare needs today. It is very important that you follow up as instructed or that you return to the Emergency Department should you have concerns or if your condition changes or worsens in any way. You were seen in the emergency room with complaint of chest discomfort that occurred yesterday. Your cardiac enzymes and EKG did not show any acute changes While in the emergency room. You are still anemic with a hemoglobin of 7.4 which is an improvement from your previous hemoglobin of 6. Will transfuse 1 unit of packed red blood cells. Will recommend that you follow-up with cardiology next week will start you on isosorbide mononitrate 30 g once daily. Print Language: Bulgarian Coding Level of Care Code ED Conductor/Brakeman for Gabriele Fuchs
[2025-01-11] MEDS: aspirin 81 mg Chew Tablet 324 MG PO (11:52)
[2025-01-11 12:03] LABS: Basophils % 0.3 %; Eosinophils # 0.1 10^3/uL (0.0-0.8); Eosinophils % 2.7 %; Hematocrit 23.7 % (36-47); Lymphocytes # 1.3 10^3/uL (0.8-4.8); Lymphocytes % 40.2 %; Mean Corpuscular HGB Conc 31.2 g/dL (30-55); Mean Corpuscular Hemoglobin 31.5 pg (27-33); Mean Corpuscular Volume 100.9 fl (85-98); Mean Platelet Volume 11.1 fL (7.4-10.4); Monocytes # 0.4 10^3/uL (0.2-0.9); Monocytes % 12.7 %; Neutrophils # 1.45 10^3/uL (1.8-7.7); Neutrophils % 43.8 %; Nucleated Red Blood Cells % 0 %; Platelet Count 307 10^3/cmm (157-399); Red Blood Count 2.35 10^6/uL (3.85-5.65); Red Cell Distribution Width 23.9 % (12.1-15.1); White Blood Count 3.31 10^3/uL (3.29-11.43)
[2025-01-11 12:24] LABS: Alanine Aminotransferase 14 U/L (0-33); Albumin Level 4.4 g/dL (3.5-5.2); Alkaline Phosphatase 66 U/L (35-105); Anion Gap 15.2 (5-19); Aspartate Amino Transferase 13 U/L (0-32); Blood Urea Nitrogen 15 mg/dL (8-23); Carbon Dioxide 23 mmol/L (22-29); Chloride 105 mmol/L (98-107); Creatinine Clr Calc Pharmacy 50.5047; Globulin 1.9 g/dL (1.3-4.6); Glucose 109 mg/dL (65-115); Osmolality Calculated 289 mOsm/kg (285-295); Potassium 4.2 mmol/L (3.5-5.1); Sodium 139 mmol/L (136-145); Total Bilirubin 1.3 mg/dL (0.15-1.2); Total Protein 6.3 g/dL (6.6-8.7)
[2025-01-11 12:25] LABS: Troponin(5th) Baseline 7 ng/L (0-10)
--- NOTE | 2025-01-11 13:05 | PC.NURSE ---
PATIENT GETTING ANXIOUS AND WANTED TO LEAVE. PATIENT STATES I HAVE PTSD. PATIENT WAS SITTING IN CHAIR WHERE SHE STATES SHE IS MORE COMFORTABLE. NURSE VERBALIZED THAT WAS OK AND LEFT PATIENT SITTING AT BEDSIDE WITHOUT LEADS.
--- NOTE | 2025-01-11 13:39 | ECG_ITS ---
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
[2025-01-11] MEDS: diphenhydrAMINE 50 mg/mL SDV 1mL 25 MG IVP (13:59)
[2025-01-11 14:06] LABS: Troponin 5 2HR 9.97 ng/L (0-10); Troponin 5 2HR Delta 2.97 ABS# (0-10)
[2025-01-11] MEDS: sodium chloride 0.9% 100 mL Bag 50 ML IV (14:08)
--- NOTE | 2025-01-11 14:35 | P.HP_ITS ---
Providers/Chief Complaint 2 Primary Care Provider: Glory Katz DO Chief Complaint: changed EKG History of Present Illness Dina Harrison is a 74 year old female With past medical history with past medical history of chronic anemia of unknown etiology, hypothyroidism, bradycardia was sent from cardiology clinic today for blood transfusion. She had a hemoglobin of 6 on 12/26/2024. She had atypical chest pain and was seen in cardiology clinic today. She also had shortness of breath. A twelve-lead EKG showed mild lateral ST depressions suggestive of possible coronary artery ischemia. She denies any active bleeding, had endoscopic evaluation to rule out GI causes. She is scheduled for [facility] for bone marrow biopsy to rule out blood dyscrasias. As per cardiology evaluation her low hemoglobin is contributing to diminished oxygen delivery and potential myocardial ischemia. Hence sent to ER for blood transfusion, ischemic evaluation with troponin and echocardiogram, initiation of antianginal therapy with beta-blockers and isosorbide mononitrate.. In ER her hemoglobin was found to be 7.4. trops were 7, 9.9 Review of Systems 2 General: Reports: 10 or more systems reviewed and unremarkable except in HPI and below Medications/Allergies Home Medications ?Medication ?Instructions ?Recorded ?Confirmed ?Last Taken ?Type levothyroxine 50 mcg tablet 50 mcg PO DAILY #90 tabs 0 05/06/20 01/11/25 01/10/25 Rx (Synthroid) omeprazole 20 mg capsule,delayed 20 mg PO BID #90 caps 01/17/24 01/11/25 01/11/25 Rx release mecobalamin (vitamin B12) 10,000 10,000 mcg IM .Q2week s 03/19/24 01/11/25 Unknown History mcg solution for injection isosorbide mononitrate 30 mg 15 mg (1/2 x 30 mg) PO DA ZEINA #15 01/11/25 Unknown Rx tablet,extended release 24 hr tabs Allergies Allergy/AdvReac Type Severity Reaction Status Date / Time milk Allergy Severe anaphylaxis Verified 01/11/25 10:31 nylon Allergy Severe rash Verified 01/11/25 10:31 gluten Allergy Intermediate ADR-Nausea Verified 01/11/25 10:31 codeine Allergy Unknown Verified 01/11/25 10:31 lactase (From Dairy Aid) Allergy ALGY-Anaphy Verified 01/11/25 10:31 laxis latex AdvReac Mild UNKNOWN Verified 01/11/25 10:31 steroids Allergy Severe Unknown Uncoded 01/11/25 10:31 PFSH Acute 2 PFSH: Medical History Anemia Anemia, macrocytic Atypical pneumonia BV (bacterial vaginosis) STD exposure Vaginal discharge Dysuria Adjustment disorder Surgical History H/O tubal ligation History of mandibular surgery Family History Sister Breast cancer, Onset Age: 35 Thyroid disease Mother CAD (coronary artery disease) Stroke Thyroid disease Family/Other Breast cancer, Onset Age: 60 maternal aunt maternal great aunt Grandmother Breast cancer, Onset Age: 98 maternal Hypertension maternal Father Diabetes Denies family history of Clotting disorder Hyperlipidemia Anesthesia complication Bleeding disorder Social History Smoking and tobacco/nicotine status: never used tobacco/nicotine Alcohol intake: current Alcohol intake frequency: few times a month Alcohol type: beer Substance/Drug Use: never Vitals/I&O/Wt Last Vital Signs Temp 98.4 F 01/11/25 14:25 Pulse 69 01/11/25 14:25 Resp 15 01/11/25 14:25 BP 121/73 01/11/25 14:25 Pulse Ox 96 01/11/25 14:25 O2 Del Method Room Air 01/11/25 14:14 01/10/25 01/11/25 01/11/25 22:59 06:59 14:59 Intake Total 0 / 0 Balance 0 / 0 Weight last 48 hrs Weight 69.853 kg Physical Exam 2 Narrative: AAOx3 chest clear to ascultation CVS normal heart sounds Abdomen soft NT ND normal bowel sounds Ext-mild edema present b/l lower extremity. Data 01/11/25 11:53 01/11/25 11:53 A&P Assessment and plan (1) Atypical chest pain: (2) Anemia, macrocytic: (3) Abnormal EKG: (4) Hypothyroid: Plan Patient with chronic anemia, sent from cardiology clinic for atypical chest pain, with mild EKG changes for further workup and blood transfusion. Getting 1 unit PRBC. 2 sets of trops 7,9.9.less likely ACS Received aspirin 324mg x 1 Will monitor on medsurg for blood transfusion. PDMP PDMP Reviewed: Not Reviewed Attestations 2 Medical Necessity Statement*: Here for blood transfusion Time Spent in Patient Care: 30minutes Coding Level of Care Code Acute Code for Chg Fwd Diagnoses Atypical chest pain R07.89 Anemia, macrocytic D53.9 Abnormal EKG R94.31 Hypothyroid E03.9 Time Spent (min) 30
--- NOTE | 2025-01-11 16:15 | PC.NURSE ---
Patient arrived on floor around 1508. Unit of blood was started in ED and is continuing. Vital signs taken and charted. No c/o pain just wanted water with no ice. 1617 patient asking for sandwich, nurse took patient a turkey sandwich with mustard.
--- NOTE | 2025-01-11 16:46 | PC.NURSE ---
Blood transfusion complete. IV left AC removed at this time. Discharge instructions provided to pt. No questions or concerns at this time. Pt to private vehicle via wheelchair with all belongings.
--- NOTE | 2025-01-11 17:00 | PC.NURSE ---
Patient blood transflused. Patient was given discharge paper work and taken down in wheelchair to where her car was located.
== END 2025-01-11 17:03 | disposition home or self-care (01) ==
LOC: ER 13:32 → MEDSURG 15:05
PROVIDERS: Emergency Provider Family Medicine; PCP Family Medicine; Visit Provider Internal Medicine
DX: D53.9 Nutritional anemia, unspecified (principal); R94.31 Abnormal electrocardiogram [ECG] [EKG]; R07.89 Other chest pain
CPT/HCPCS: 36415; 36430; 71045; 80053; 84484; 85025; 86850; 86900; 86920; 93005; 96374; 99205; 99285; J1200; J9999; P9016

== ENCOUNTER 2025-01-27 19:18 | Emergency (ER) | payer MEDICARE, OTHER, SELFPAY ==
[2025-01-27] VITALS (8 sets, daily range): BP systolic 98–134; BP diastolic 53–74; PULSE 57–95; RESP 12–18; TEMP 36.8–37.1; O2SAT 95–100; BMI 28.7
[2025-01-27 19:58] LABS: Basophils % 0.2 %; Eosinophils # 0.1 10^3/uL (0.0-0.8); Eosinophils % 2.3 %; Hematocrit 22.7 % (36-47); Lymphocytes # 2.3 10^3/uL (0.8-4.8); Lymphocytes % 47.7 %; Mean Corpuscular HGB Conc 31.3 g/dL (30-55); Mean Corpuscular Volume 99.1 fl (85-98); Mean Platelet Volume 10.6 fL (7.4-10.4); Monocytes # 0.7 10^3/uL (0.2-0.9); Monocytes % 13.4 %; Neutrophils # 1.75 10^3/uL (1.8-7.7); Neutrophils % 36.2 %; Nucleated Red Blood Cells % 0.4 %; Platelet Count 353 10^3/cmm (157-399); Red Blood Count 2.29 10^6/uL (3.85-5.65); Red Cell Distribution Width 22.2 % (12.1-15.1); White Blood Count 4.84 10^3/uL (3.29-11.43)
[2025-01-27 20:15] LABS: Alanine Aminotransferase 11 U/L (0-33); Alkaline Phosphatase 70 U/L (35-105); Anion Gap 16.1 (5-19); Aspartate Amino Transferase 11 U/L (0-32); Blood Urea Nitrogen 14 mg/dL (8-23); Calcium 9.1 mg/dL (8.5-10.5); Carbon Dioxide 21 mmol/L (22-29); Chloride 104 mmol/L (98-107); Creatinine Clr Calc Pharmacy 37.6358; Globulin 2.5 g/dL (1.3-4.6); Glucose 109 mg/dL (65-115); Osmolality Calculated 285 mOsm/kg (285-295); Potassium 4.1 mmol/L (3.5-5.1); Sodium 137 mmol/L (136-145); Total Bilirubin 0.8 mg/dL (0.15-1.2); Total Protein 6.5 g/dL (6.6-8.7)
--- NOTE | 2025-01-27 22:01 | ED_ITS ---
HPI - Recheck/Abnormal Lab/Rx 2 General: Chief Complaint: Recheck/Abnormal Lab/Rx Stated Complaint: Dr Called Her Labs Bad Time Seen by Provider: 01/27/25 19:57 History of Present Illness: 74-year-old female with a history of ane santosh. She has received up to 4 transfusions since October she says. She was feeling tired, short of breath, and activity intolerance. She went to her doctor, blood was drawn. She was called today and told that her hemoglobin was 7.1 and she should come to the hospital. She complains of a chronic, ongoing epigastric pain radiating into her right upper abdomen and back. She believes she has an ulcer. Pain is improved with omeprazole. She had a recent EGD and November she says with a diagnosis of gastritis . Related Data Home Medications ?Medication ?Instructions ?Recorded ?Confirmed mecobalamin (vitamin B12) 10,000 10,000 mcg IM .Q2week s 03/19/24 01/11/25 mcg solution for injection Previous Rx's ?Medication ?Instructions ?Recorded levothyroxine 50 mcg tablet 50 mcg PO DAILY #90 tabs 0 05/06/20 (Synthroid) omeprazole 20 mg capsule,delayed 20 mg PO BID #90 caps 01/17/24 release isosorbide mononitrate 30 mg 15 mg (1/2 x 30 mg) PO DA ZEINA #15 01/11/25 tablet,extended release 24 hr tabs Allergies Allergy/AdvReac Type Severity Reaction Status Date / Time milk Allergy Severe anaphylaxis Verified 01/27/25 19:31 nylon Allergy Severe rash Verified 01/27/25 19:31 gluten Allergy Intermediate ADR-Nausea Verified 01/27/25 19:31 codeine Allergy Unknown Verified 01/27/25 19:31 lactase (From Dairy Aid) Allergy ALGY-Anaphy Verified 01/27/25 19:31 laxis latex AdvReac Mild UNKNOWN Verified 01/27/25 19:31 steroids Allergy Severe Unknown Uncoded 01/27/25 19:31 [facility] ED 2 PFSH: Medical History Anemia Anemia, macrocytic Atypical pneumonia BV (bacterial vaginosis) STD exposure Vaginal discharge Dysuria Adjustment disorder Surgical History H/O tubal ligation History of mandibular surgery Family History Sister Breast cancer, Onset Age: 35 Thyroid disease Mother CAD (coronary artery disease) Stroke Thyroid disease Family/Other Breast cancer, Onset Age: 60 maternal aunt maternal great aunt Grandmother Breast cancer, Onset Age: 98 maternal Hypertension maternal Father Diabetes Denies family history of Clotting disorder Hyperlipidemia Anesthesia complication Bleeding disorder Social History Smoking and tobacco/nicotine status: never used tobacco/nicotine Alcohol intake: current Alcohol intake frequency: few times a month Alcohol type: beer Substance/Drug Use: never Physical Exam 2 Const: COMMON NORMALS: no acute distress GENERAL APPEARANCE: cooperative; not ill appearing and not frail appearing HENMT: COMMON NORMALS: normocephalic, atraumatic and Normal external nose present HEAD & SCALP: normocephalic and atraumatic FACE & SINUS: normal facial exam and face symmetric NOSE: Normal external nose present Eye: COMMON NORMALS: Equal, round and reactive pupils present and EOMs intact bilaterally PUPIL: Yes Equal, round and reactive pupils present Neck/C-Spine: GENERAL: Yes trachea midline Chest: CHEST: Yes Symmetrical chest wall rise Resp: COMMON NORMALS: normal respiratory effort, No retractions, No use of accessory muscles and clear to auscultation bilaterally AUSCULTATION: clear to auscultation bilaterally Cardio: COMMON NORMALS: regular rate and regular rhythm RATE: regular rate RHYTHM: regular rhythm GI: COMMON NORMALS: Normal to inspection, nondistended, normoactive bowel sounds present Extremity: COMMON NORMALS: no pedal edema Neuro: S[place]HA COMA SCALE: document GCS findings [place] coma scale eye opening: Spontaneous [place] coma scale verbal response: Orientated [place] coma scale motor response: Obey commands [place] coma scale total score: 15 S ENSORY EXAM: Yes extremities (intact) Psych: COMMON NORMALS: speech normal SPEECH: Yes normal speech Skin: COMMON NORMALS: no rashes or lesions noted GENERAL SKIN EXAM: no rashes or lesions noted Course 2 Vital Signs: Vital signs: Vital Signs Temperature 98.2 F 01/27/25 23:53 Pulse Rate 69 01/28/25 01:57 Respiratory Rate 14 01/28/25 01:57 Blood Pressure 97/58 01/28/25 01:57 Pulse Oximetry 93 01/28/25 01:57 Oxygen Delivery Me thod Room Air 01/27/25 22:16 MDM - Recheck/Abnormal Lab/Rx Medical Decision Making Vital signs are stable. Hemoglobin is 7.1. Creatinine is 1.2. Bicarbonate is 21. Other laboratory is not remarkable. She is crossmatched for 1 unit, and will be transfused here. She has an outpatient bone marrow biopsy pending this coming week. This will happen in [place]. Lab Data 01/27/25 19:45 01/27/25 19:45 Laboratory Results WBC 4.84 10^3/uL (3.29-11.43) 01/27/25 19:45 RBC 2.29 10^6/uL (3.85-5.65) L 01/27/25 19:45 Hgb 7.10 g/dL (11.27-16.99) L 01/27/25 19:45 Hct 22.7 % (36-47) L 01/27/25 19:45 MCV 99.1 fl (85-98) H 01/27/25 19:45 MCH 31.0 pg (27-33) 01/27/25 19:45 MCHC 31.3 g/dL (30-55) 01/27/25 19:45 RDW 22.2 % (12.1-15.1) H 01/27/25 19:45 Plt Count 353 10^3/cmm (157-399) 01/27/25 19:45 MPV 10.6 fL (7.4-10.4) H 01/27/25 19:45 Neut % (Auto) 36.2 % 01/27/25 19:45 Lymph % (Auto) 47.7 % 01/27/25 19:45 [place] % (Auto) 13.4 % 01/27/25 19:45 Eos % (Auto) 2.3 % 01/27/25 19:45 Baso % (Auto) 0.2 % 01/27/25 19:45 Neut # (Auto) 1.75 10^3/uL (1.8-7.7) L 01/27/25 19:45 Lymph # (Auto) 2.3 10^3/uL (0.8-4.8) 01/27/25 19:45 [place] # (Auto) 0.7 10^3/uL (0.2-0.9) 01/27/25 19:45 Eos # (Auto) 0.1 10^3/uL (0.0-0.8) 01/27/25 19:45 Baso # (Auto) 0.0 10^3/uL (0.0-0.1) 01/27/25 19:45 Nucleated RBC % (auto) 0.4 % 01/27/25 19:45 Nucleated RBCs # 0.0 /100WBC 01/27/25 19:45 Sodium 137 mmol/L (136-145) 01/27/25 19:45 Potassium 4.1 mmol/L (3.5-5.1) 01/27/25 19:45 Chloride 104 mmol/L (98-107) 01/27/25 19:45 Carbon Dioxide 21 mmol/L (22-29) L 01/27/25 19:45 Anion Gap 16.1 (5-19) 01/27/25 19:45 BUN 14 mg/dL (8-23) 01/27/25 19:45 Creatinine 1.2 mg/dL (0.5-0.9) H 01/27/25 19:45 GFR Calculation Not Reportable 01/27/25 19:45 Glucose 109 mg/dL (65-115) 01/27/25 19:45 Calculated Osmolality 285 mOsm/kg (285-295) 01/27/25 19:45 Calcium 9.1 mg/dL (8.5-10.5) 01/27/25 19:45 Total Bilirubin 0.8 mg/dL (0.15-1.2) 01/27/25 19:45 AST 11 U/L (0-32) 01/27/25 19:45 ALT 11 U/L (0-33) 01/27/25 19:45 Alkaline Phosphatase 70 U/L (35-105) 01/27/25 19:45 Total Protein 6.5 g/dL (6.6-8.7) L 01/27/25 19:45 Albumin 4.0 g/dL (3.5-5.2) 01/27/25 19:45 Globulin 2.5 g/dL (1.3-4.6) 01/27/25 19:45 Blood Type O Positive 01/27/25 20:00 Rho(D) Type Rh positive 01/27/25 20:00 Antibody Screen Negative 01/27/25 20:00 Crossmatch See Detail 01/27/25 20:00 All radiology interpretation(s) finalized by discharge Discharge Plan Discharge Patient Disposition: Home Clinical Impression: Macrocytic anemia Condition: Stable Prescriptions: No Action levothyroxine [Synthroid] 50 mcg tablet 50 mcg PO DAILY Qty: 90 1RF mecobalamin (vitamin B12) 10,000 mcg recon soln 10,000 mcg IM .[id number] omeprazole 20 mg capsule,delayed release(DR/EC) 20 mg PO BID Qty: 90 0RF isosorbide mononitrate 30 mg tablet extended release 24 hr 15 mg PO DAILY Qty: 15 0RF Discharge Orders: Discharge ED (Routine); Ordered 01/28/25 Ordered By: Eren Whatley Referrals: Glory Katz DO [Primary Care Provider, [facility]] - 1-3 days Patient Instructions: Anemia (ED), Opioid Safety, Pain Management Activity Restrictions/Additional Instructions: You should have your blood count rechecked in 48 hours. Call your doctor in the morning for a follow-up appointment regarding this. Return for shortness of breath, worsening fatigue or lethargy, any signs of loss of blood, etc. Print Language: Romansh Coding Level of Care Code ED Case Assembler for Gabriele Fuchs
[2025-01-27] MEDS: diphenhydrAMINE 50 mg/mL SDV 1mL 12.5 MG IVP (22:11)
[2025-01-27] MEDS: famotidine 20 mg/2 mL INJ IVP (22:12)
[2025-01-27] MEDS: acetaminophen 325 mg Tablet 650 MG PO (22:13)
--- NOTE | 2025-01-28 00:07 | PC.NURSE ---
made PROVIDER AWARE OF PT HYPOTENSION, PROVIDER GAVE VERBAL ORDER TO SPEED BLOOD UP TO 175 ML/HR.
[2025-01-28 00:08] VITALS: PULSE 68
[2025-01-28 00:58] VITALS: PULSE 70
[2025-01-28 01:57] VITALS: BP 97/58; PULSE 69; RESP 14; O2SAT 93
== END 2025-01-28 01:58 | disposition home or self-care (01) ==
PROVIDERS: Emergency Medicine; Emergency Provider Emergency Medicine; PCP Family Medicine
DX: D53.9 Nutritional anemia, unspecified (principal)
CPT/HCPCS: 36415; 36430; 80053; 85025; 86850; 86900; 86920; 96374; 96375; 99284; J1200; J3490; J9999; P9016

== ENCOUNTER 2025-02-14 08:28 | Oncology outpatient (recurring) (ONCR) | payer MEDICARE, OTHER, SELFPAY ==
[2025-02-13 15:15] LABS: Basophils % 0.4 %; Eosinophils # 0.1 10^3/uL (0.0-0.8); Eosinophils % 1.3 %; Hematocrit 22.2 % (36-47); Lymphocytes # 1.8 10^3/uL (0.8-4.8); Lymphocytes % 37.5 %; Mean Platelet Volume 10.6 fL (7.4-10.4); Monocytes # 0.7 10^3/uL (0.2-0.9); Monocytes % 15.5 %; Neutrophils # 2.15 10^3/uL (1.8-7.7); Neutrophils % 45.1 %; Nucleated Red Blood Cells % 0 %; Platelet Count 333 10^3/cmm (157-399); Red Blood Count 2.22 10^6/uL (3.85-5.65); Red Cell Distribution Width 20.3 % (12.1-15.1); Reticulocyte % 0.7 % (0.5-2.0); White Blood Count 4.77 10^3/uL (3.29-11.43)
[2025-02-13 15:25] LABS: Erythrocyte Sedimentation Rate < 1 mm/hr (0-15)
[2025-02-13 15:39] LABS: Alanine Aminotransferase 12 U/L (0-33); Albumin Level 4.1 g/dL (3.5-5.2); Alkaline Phosphatase 61 U/L (35-105); Anion Gap 16.2 (5-19); Aspartate Amino Transferase 10 U/L (0-32); Blood Urea Nitrogen 16 mg/dL (8-23); Calcium 9.3 mg/dL (8.5-10.5); Carbon Dioxide 24 mmol/L (22-29); Chloride 102 mmol/L (98-107); Creatinine Clr Calc Pharmacy 49.6955; Globulin 2.1 g/dL (1.3-4.6); Glucose 96 mg/dL (65-115); Iron 97 ug/dL (37-145); Lactate Dehydrogenase 173 U/L (135-214); Osmolality Calculated 287 mOsm/kg (285-295); Percent Saturation 55.4 % (20-50); Potassium 4.2 mmol/L (3.5-5.1); Sodium 138 mmol/L (136-145); Total Bilirubin 0.6 mg/dL (0.15-1.2); Total Iron Binding Capacity 175 mcg/dl; Total Protein 6.2 g/dL (6.6-8.7); Unsaturated Iron Binding 78 ug/dL (112-347)
[2025-02-13 15:41] LABS: INR 1.08 (0.8-1.2)
[2025-02-13 15:54] LABS: Ferritin 1297 ng/mL (15-150); Vitamin B12 588 pg/mL (232-1245)
[2025-02-13 15:55] LABS: Folate Level 17.8 ng/mL (4.8-37.3)
[2025-02-14 10:00] LABS: Basophils % 0.5 %; Eosinophils # 0.1 10^3/uL (0.0-0.8); Eosinophils % 1.9 %; Hematocrit 22.5 % (36-47); Lymphocytes # 1.5 10^3/uL (0.8-4.8); Lymphocytes % 39.8 %; Mean Corpuscular HGB Conc 32.4 g/dL (30-55); Mean Corpuscular Volume 98.7 fl (85-98); Monocytes # 0.5 10^3/uL (0.2-0.9); Monocytes % 14.5 %; Neutrophils # 1.58 10^3/uL (1.8-7.7); Neutrophils % 42.5 %; Nucleated Red Blood Cells % 0 %; Platelet Count 342 10^3/cmm (157-399); Red Blood Count 2.28 10^6/uL (3.85-5.65); Red Cell Distribution Width 20.8 % (12.1-15.1); White Blood Count 3.72 10^3/uL (3.29-11.43)
[2025-02-14] MEDS: acetaminophen 325 mg Tablet 650 MG PO (10:22)
[2025-02-14 11:11] VITALS: BP 107/58; PULSE 83; RESP 16; TEMP 36.7; O2SAT 98
[2025-02-14 11:26] VITALS: BP 98/60; RESP 16; TEMP 37; O2SAT 98
[2025-02-14 12:20] VITALS: BP 95/58; PULSE 81; RESP 16; TEMP 36.6; O2SAT 96
[2025-02-14 13:14] VITALS: BP 107/69; PULSE 74; RESP 18; TEMP 36.3; O2SAT 99
== END 2025-02-16 23:59 | disposition home or self-care (01) ==
PROVIDERS: Internal Medicine; Internal Medicine Hematology & Oncology; PCP Family Medicine; Visit Provider Internal Medicine Medical Oncology
DX: D53.9 Nutritional anemia, unspecified (principal); D46.9 Myelodysplastic syndrome, unspecified; Z79.899 Other long term (current) drug therapy
CPT/HCPCS: 36415; 36430; 80053; 82607; 82728; 82746; 83010; 83540; 83550; 83615; 85025; 85045; 85610; 85651; 85730; 86140; 86850; 86880; 86900; 86920; 99214; J9999; P9016

== ENCOUNTER 2025-03-18 08:17 | Oncology outpatient (recurring) (ONCR) | payer MEDICARE, OTHER, SELFPAY ==
[2025-03-14 15:12] LABS: Basophils % 0.3 %; Eosinophils # 0.1 10^3/uL (0.0-0.8); Eosinophils % 2.1 %; Hematocrit 22.1 % (36-47); Lymphocytes # 1.8 10^3/uL (0.8-4.8); Lymphocytes % 49.2 %; Mean Corpuscular HGB Conc 32.1 g/dL (30-55); Mean Corpuscular Hemoglobin 32.1 pg (27-33); Mean Platelet Volume 11.4 fL (7.4-10.4); Monocytes # 0.7 10^3/uL (0.2-0.9); Monocytes % 18.4 %; Neutrophils # 1.11 10^3/uL (1.8-7.7); Neutrophils % 29.7 %; Nucleated Red Blood Cells % 0 %; Platelet Count 261 10^3/cmm (157-399); Red Blood Count 2.21 10^6/uL (3.85-5.65); Red Cell Distribution Width 19.9 % (12.1-15.1); Reticulocyte % 0.8 % (0.5-2.0); White Blood Count 3.74 10^3/uL (3.29-11.43)
[2025-03-14 15:27] LABS: Alanine Aminotransferase 16 U/L (0-33); Alkaline Phosphatase 66 U/L (35-105); Aspartate Amino Transferase 11 U/L (0-32); Blood Urea Nitrogen 14 mg/dL (8-23); Calcium 9.1 mg/dL (8.5-10.5); Carbon Dioxide 25 mmol/L (22-29); Chloride 106 mmol/L (98-107); Globulin 2.2 g/dL (1.3-4.6); Glucose 103 mg/dL (65-115); Lactate Dehydrogenase 199 U/L (135-214); Osmolality Calculated 291 mOsm/kg (285-295); Sodium 140 mmol/L (136-145); Total Bilirubin 0.9 mg/dL (0.15-1.2); Total Protein 6.2 g/dL (6.6-8.7)
[2025-03-18 09:17] LABS: Basophils % 0.3 %; Eosinophils # 0.1 10^3/uL (0.0-0.8); Eosinophils % 2.4 %; Lymphocytes # 1.4 10^3/uL (0.8-4.8); Mean Corpuscular HGB Conc 31.8 g/dL (30-55); Mean Corpuscular Hemoglobin 31.4 pg (27-33); Mean Corpuscular Volume 98.5 fl (85-98); Mean Platelet Volume 10.6 fL (7.4-10.4); Monocytes # 0.7 10^3/uL (0.2-0.9); Monocytes % 21.1 %; Neutrophils # 1.04 10^3/uL (1.8-7.7); Neutrophils % 31.9 %; Nucleated Red Blood Cells % 0 %; Platelet Count 252 10^3/cmm (157-399); Red Blood Count 2.04 10^6/uL (3.85-5.65); Red Cell Distribution Width 20.3 % (12.1-15.1); White Blood Count 3.27 10^3/uL (3.29-11.43)
[2025-03-18] MEDS: acetaminophen 325 mg Tablet 650 MG PO (10:27)
[2025-03-18] MEDS: diphenhydrAMINE 25 mg Capsule PO (10:27)
[2025-03-18] MEDS: sodium chloride 0.9% 250 ML IV (10:30)
[2025-03-18 10:36] VITALS: BP 117/58; PULSE 72; RESP 16; TEMP 36.2; O2SAT 99
[2025-03-18 10:45] LABS: Hematocrit 20.1 % (36-47)
[2025-03-18 10:54] VITALS: BP 114/72; PULSE 76; RESP 16; TEMP 36.2; O2SAT 99
[2025-03-18 11:11] VITALS: BP 96/59; PULSE 72; RESP 16; TEMP 36.7; O2SAT 98
[2025-03-18 11:44] VITALS: BP 113/61; PULSE 74; RESP 16; TEMP 36.1; O2SAT 96
[2025-03-18 12:37] VITALS: BP 138/76; PULSE 76; RESP 16; TEMP 36; O2SAT 98
[2025-03-19 22:10] LABS: Beta 2 Glycoprotein IGA <2.0 U/mL (<20.0); Beta 2 Glycoprotein IGG 2.6 U/mL (<20.0); Beta 2 Glycoprotein IGM 9.3 U/mL (<20.0)
== END 2025-03-18 23:59 | disposition home or self-care (01) ==
PROVIDERS: Internal Medicine; PCP Family Medicine; Visit Provider Internal Medicine
DX: D53.9 Nutritional anemia, unspecified; Z79.899 Other long term (current) drug therapy; Z53.9 Procedure and treatment not carried out, unspecified reason
CPT/HCPCS: 36415; 36430; 80053; 83010; 83615; 85025; 85045; 86146; 86850; 86900; 86920; 99214; J7050; J9999; P9016

== ENCOUNTER 2025-03-29 15:45 | Oncology outpatient (recurring) (ONCR) | payer MEDICARE, OTHER, SELFPAY ==
[2025-03-28 10:59] LABS: Hematocrit 23.9 % (36-47); Hemoglobin 7.40 g/dL (11.27-16.99); Mean Corpuscular HGB Conc 31.0 g/dL (30-55); Mean Corpuscular Hemoglobin 30.6 pg (27-33); Mean Corpuscular Volume 98.8 fl (85-98); Nucleated Red Blood Cells % 0 %; Platelet Count 274 10^3/cmm (157-399); Red Blood Count 2.42 10^6/uL (3.85-5.65); White Blood Count 3.55 10^3/uL (3.29-11.43)
[2025-03-28 13:30] VITALS: BP 107/62; PULSE 81; RESP 18; TEMP 36.5; O2SAT 94
[2025-03-28 13:45] VITALS: BP 101/57; PULSE 72; RESP 18; TEMP 37.1; O2SAT 93
[2025-03-28 14:15] VITALS: BP 101/64; PULSE 76; RESP 17; TEMP 36.3; O2SAT 99
[2025-03-28 15:15] VITALS: BP 101/58; PULSE 71; RESP 18; TEMP 36.3; O2SAT 96
--- NOTE | 2025-03-29 14:34 | USR_ITS ---
PROCEDURE INFORMATION: Exam: US Left Limited Joint or Other Non-Vascular Extremity Structure Exam date and time: 03/29/2025 2:47 PM Age: 74 years old Clinical indication: Mass or lump; Upper leg; Left; Additional info: Lump of skin of back TECHNIQUE: Imaging protocol: US left limited joint or other nonvascular extremity structure. Real-time ultrasound with image documentation. Exam focused on the area of clinical interest. COMPARISON: CT abdomen pelvis w con* [id number] 11/05/2024 3:55 PM FINDINGS: Soft tissues: Unremarkable. No loculated collections. Other findings: In the location of left hip palpable lump, a 10 x 9 x 6 mm region of ill-defined, heterogeneous soft tissue and fluid echogenicity is noted in the subcutaneous tissues. No other abnormality. US/US soft tissue/extremity [id number] IMPRESSION: Small, nonspecific focus of heterogeneous echogenicity in the subcutaneous soft tissues in the region of palpable lump. The finding could represent edema/hematoma in the setting of injury or a focal cellulitis. Continued follow-up can include clinical assessment or repeat imaging with ultrasound or CT.
== END 2025-04-18 23:59 | disposition home or self-care (01) ==
LOC: RAD 03-30 00:01 → ONCMED 04-01 10:38
PROVIDERS: Internal Medicine; PCP Family Medicine; Visit Provider Internal Medicine
DX: R22.2 Localized swelling, mass and lump, trunk; Z53.9 Procedure and treatment not carried out, unspecified reason
CPT/HCPCS: 36415; 36430; 76882; 85025; 86850; 86900; 86920; 88374; 99213; J7050; J9999; P9016

== ENCOUNTER 2025-05-15 08:51 | Oncology outpatient (recurring) (ONCR) | payer MEDICARE, OTHER, SELFPAY ==
[2025-04-29] VITALS (9 sets, daily range): BP systolic 93–116; BP diastolic 52–85; PULSE 59–84; RESP 16; TEMP 36.4–37.1; O2SAT 95–99
[2025-04-29 10:31] LABS: Mean Corpuscular HGB Conc 31.4 g/dL (30-55); Mean Corpuscular Hemoglobin 30.7 pg (27-33); Mean Corpuscular Volume 97.9 fl (85-98); Nucleated Red Blood Cells % 0 %; Platelet Count 233 10^3/cmm (157-399); Red Blood Count 1.92 10^6/uL (3.85-5.65); White Blood Count 3.73 10^3/uL (3.29-11.43)
[2025-04-29 10:54] LABS: Alanine Aminotransferase 18 U/L (0-33); Albumin Level 4.2 g/dL (3.5-5.2); Alkaline Phosphatase 62 U/L (35-105); Anion Gap 12.6 (5-19); Aspartate Amino Transferase 12 U/L (0-32); Blood Urea Nitrogen 10 mg/dL (8-23); Calcium 8.9 mg/dL (8.5-10.5); Carbon Dioxide 25 mmol/L (22-29); Chloride 108 mmol/L (98-107); Creatinine Clr Calc Pharmacy 40.7925; Globulin 2.0 g/dL (1.3-4.6); Glucose 87 mg/dL (65-115); Iron 175 ug/dL (37-145); Osmolality Calculated 290 mOsm/kg (285-295); Potassium 4.6 mmol/L (3.5-5.1); Sodium 141 mmol/L (136-145); Total Protein 6.2 g/dL (6.6-8.7); Uric Acid 5.8 mg/dL (2.4-5.7)
[2025-04-29 11:01] LABS: Hematocrit 18.8 % (36-47); Hemoglobin 5.90 g/dL (11.27-16.99)
[2025-04-29 11:08] LABS: Vitamin B12 800 pg/mL (232-1245)
[2025-04-29 11:10] LABS: Ferritin 1500 ng/mL (15-150)
[2025-04-29 11:13] LABS: Total Iron Binding Capacity 181.99999 mcg/dl; Unsaturated Iron Binding < 7 ug/dL (112-347)
[2025-05-08 11:56] LABS: Hematocrit 24.8 % (36-47); Hemoglobin 8.00 g/dL (11.27-16.99); Mean Corpuscular HGB Conc 32.3 g/dL (30-55); Mean Corpuscular Hemoglobin 31.7 pg (27-33); Mean Corpuscular Volume 98.4 fl (85-98); Nucleated Red Blood Cells % 0 %; Platelet Count 224 10^3/cmm (157-399); Red Blood Count 2.52 10^6/uL (3.85-5.65); White Blood Count 3.99 10^3/uL (3.29-11.43)
[2025-05-08 12:05] LABS: Glucose Urine UA Negative (Normal); Nitrate Urine Positive (Negative); Specific Gravity, Urine 1.017 (1.005-1.030)
[2025-05-08 12:07] LABS: Add Urine Microscopic? YES
[2025-05-08 12:22] LABS: Alanine Aminotransferase 19 U/L (0-33); Albumin Level 4.2 g/dL (3.5-5.2); Alkaline Phosphatase 65 U/L (35-105); Anion Gap 13.0 (5-19); Aspartate Amino Transferase 12 U/L (0-32); Blood Urea Nitrogen 13 mg/dL (8-23); Calcium 9.0 mg/dL (8.5-10.5); Carbon Dioxide 26 mmol/L (22-29); Chloride 108 mmol/L (98-107); Creatinine Clr Calc Pharmacy 50.3431; Globulin 2.3 g/dL (1.3-4.6); Glucose 101 mg/dL (65-115); Iron 87 ug/dL (37-145); Osmolality Calculated 296 mOsm/kg (285-295); Potassium 4.0 mmol/L (3.5-5.1); Sodium 143 mmol/L (136-145); Total Iron Binding Capacity 168 mcg/dl; Total Protein 6.5 g/dL (6.6-8.7); Unsaturated Iron Binding 81 ug/dL (112-347)
[2025-05-08 12:34] LABS: Ferritin 1756 ng/mL (15-150)
[2025-05-08 12:35] LABS: Vitamin B12 560 pg/mL (232-1245)
[2025-05-15 09:20] LABS: Hematocrit 23.6 % (36-47); Hemoglobin 7.60 g/dL (11.27-16.99); Mean Corpuscular HGB Conc 32.2 g/dL (30-55); Mean Corpuscular Hemoglobin 31.5 pg (27-33); Mean Corpuscular Volume 97.9 fl (85-98); Nucleated Red Blood Cells % 0 %; Platelet Count 259 10^3/cmm (157-399); Red Blood Count 2.41 10^6/uL (3.85-5.65); White Blood Count 3.70 10^3/uL (3.29-11.43)
[2025-05-15 09:38] LABS: Alanine Aminotransferase 18 U/L (0-33); Albumin Level 4.4 g/dL (3.5-5.2); Alkaline Phosphatase 67 U/L (35-105); Anion Gap 11.3 (5-19); Aspartate Amino Transferase 12 U/L (0-32); Blood Urea Nitrogen 18 mg/dL (8-23); Calcium 9.2 mg/dL (8.5-10.5); Carbon Dioxide 27 mmol/L (22-29); Chloride 107 mmol/L (98-107); Creatinine Clr Calc Pharmacy 50.5047; Globulin 2.6 g/dL (1.3-4.6); Glucose 113 mg/dL (65-115); Iron 199 ug/dL (37-145); Osmolality Calculated 295 mOsm/kg (285-295); Potassium 4.3 mmol/L (3.5-5.1); Sodium 141 mmol/L (136-145); Total Protein 7.0 g/dL (6.6-8.7)
[2025-05-15 09:51] LABS: Vitamin B12 530 pg/mL (232-1245)
[2025-05-15 09:54] LABS: Ferritin 1946 ng/mL (15-150); Total Iron Binding Capacity 216 mcg/dl; Unsaturated Iron Binding < 17 ug/dL (112-347)
[2025-05-15] MEDS: luspatercept-aamt 75 mg 70 MG SUBCUT (11:27)
[2025-05-15 12:07] VITALS: BP 105/55; PULSE 70; RESP 16; TEMP 36.7; O2SAT 97
== END 2025-05-15 23:59 | disposition home or self-care (01) ==
PROVIDERS: Internal Medicine; PCP Family Medicine; Visit Provider Internal Medicine
DX: D46.9 Myelodysplastic syndrome, unspecified (principal); D53.9 Nutritional anemia, unspecified; Z79.899 Other long term (current) drug therapy
CPT/HCPCS: 36415; 36430; 80053; 81001; 82232; 82607; 82728; 82746; 83010; 83540; 83550; 83615; 84550; 85025; 85045; 86850; 86880; 86900; 86920; 87077; 87086; 87186; 96401; 99213; 99214; 99215; J0896; J7050; J9999; P9016

== ENCOUNTER 2025-05-17 08:35 | Oncology outpatient (recurring) (ONCR) | payer MEDICARE, OTHER, SELFPAY ==
[2025-05-17 09:10] LABS: Hematocrit 22.0 % (36-47); Hemoglobin 7.10 g/dL (11.27-16.99); Mean Corpuscular HGB Conc 32.3 g/dL (30-55); Mean Corpuscular Hemoglobin 31.4 pg (27-33); Mean Corpuscular Volume 97.3 fl (85-98); Nucleated Red Blood Cells % 0 %; Platelet Count 249 10^3/cmm (157-399); Red Blood Count 2.26 10^6/uL (3.85-5.65); White Blood Count 4.36 10^3/uL (3.29-11.43)
[2025-05-17 09:27] LABS: Alanine Aminotransferase 17 U/L (0-33); Albumin Level 4.4 g/dL (3.5-5.2); Alkaline Phosphatase 62 U/L (35-105); Anion Gap 11.2 (5-19); Aspartate Amino Transferase 15 U/L (0-32); Blood Urea Nitrogen 14 mg/dL (8-23); Calcium 9.4 mg/dL (8.5-10.5); Carbon Dioxide 27 mmol/L (22-29); Chloride 108 mmol/L (98-107); Globulin 2.4 g/dL (1.3-4.6); Glucose 109 mg/dL (65-115); Osmolality Calculated 295 mOsm/kg (285-295); Potassium 4.2 mmol/L (3.5-5.1); Sodium 142 mmol/L (136-145); Total Protein 6.8 g/dL (6.6-8.7)
[2025-05-17 10:38] VITALS: BP 112/69; PULSE 63; RESP 16; TEMP 36.6; O2SAT 100
[2025-05-17 10:53] VITALS: BP 134/85; PULSE 61; RESP 18; TEMP 36.8; O2SAT 99
[2025-05-17 11:08] VITALS: BP 111/62; PULSE 63; RESP 16; TEMP 37.1; O2SAT 98
[2025-05-17 11:38] VITALS: BP 116/61; PULSE 64; RESP 16; TEMP 36.9; O2SAT 96
[2025-05-17 12:50] VITALS: BP 106/63; PULSE 63; RESP 16; TEMP 36.8; O2SAT 96
== END 2025-05-19 23:59 | disposition home or self-care (01) ==
LOC: ONCMED 08:35
PROVIDERS: Nurse Practitioner; PCP Family Medicine; Visit Provider Internal Medicine
DX: D46.9 Myelodysplastic syndrome, unspecified (principal); D53.9 Nutritional anemia, unspecified; Z79.899 Other long term (current) drug therapy
CPT/HCPCS: 36430; 80053; 85025; 86850; 86900; 86920; 96365; J7050; J9999; P9040

== ENCOUNTER 2025-06-04 10:00 | Oncology outpatient (recurring) (ONCR) | payer MEDICARE, OTHER, SELFPAY ==
[2025-05-22 10:17] LABS: Hematocrit 24.0 % (36-47); Hemoglobin 7.80 g/dL (11.27-16.99); Mean Corpuscular HGB Conc 32.5 g/dL (30-55); Mean Corpuscular Hemoglobin 30.8 pg (27-33); Mean Corpuscular Volume 94.9 fl (85-98); Nucleated Red Blood Cells % 0.4 %; Platelet Count 218 10^3/cmm (157-399); Red Blood Count 2.53 10^6/uL (3.85-5.65); White Blood Count 5.21 10^3/uL (3.29-11.43)
[2025-05-22 10:37] LABS: Alanine Aminotransferase 14 U/L (0-33); Albumin Level 4.3 g/dL (3.5-5.2); Alkaline Phosphatase 67 U/L (35-105); Anion Gap 12.5 (5-19); Aspartate Amino Transferase 11 U/L (0-32); Blood Urea Nitrogen 16 mg/dL (8-23); Calcium 9.5 mg/dL (8.5-10.5); Carbon Dioxide 27 mmol/L (22-29); Chloride 107 mmol/L (98-107); Creatinine Clr Calc Pharmacy 50.3431; Globulin 2.3 g/dL (1.3-4.6); Glucose 95 mg/dL (65-115); Osmolality Calculated 295 mOsm/kg (285-295); Potassium 4.5 mmol/L (3.5-5.1); Sodium 142 mmol/L (136-145); Total Protein 6.6 g/dL (6.6-8.7)
[2025-05-22 12:28] VITALS: BP 133/73; PULSE 67; TEMP 36.9; O2SAT 94
[2025-05-22 12:43] VITALS: BP 119/67; PULSE 63; RESP 16; TEMP 37; O2SAT 93
[2025-05-22 12:58] VITALS: BP 119/71; PULSE 66; RESP 16; TEMP 36.6; O2SAT 95
[2025-05-22 13:58] VITALS: BP 116/71; PULSE 71; RESP 16; TEMP 36.6; O2SAT 93
[2025-05-22 14:27] VITALS: BP 113/69; PULSE 69; RESP 16; TEMP 36.6; O2SAT 93
[2025-05-28 10:40] LABS: Hematocrit 26.3 % (36-47); Hemoglobin 8.50 g/dL (11.27-16.99); Mean Corpuscular HGB Conc 32.3 g/dL (30-55); Mean Corpuscular Hemoglobin 30.6 pg (27-33); Mean Corpuscular Volume 94.6 fl (85-98); Nucleated Red Blood Cells % 0 %; Platelet Count 197 10^3/cmm (157-399); Red Blood Count 2.78 10^6/uL (3.85-5.65); White Blood Count 3.74 10^3/uL (3.29-11.43)
[2025-05-28 11:04] LABS: Alanine Aminotransferase 15 U/L (0-33); Albumin Level 4.2 g/dL (3.5-5.2); Alkaline Phosphatase 63 U/L (35-105); Anion Gap 11.2 (5-19); Aspartate Amino Transferase 10 U/L (0-32); Blood Urea Nitrogen 12 mg/dL (8-23); Calcium 9.1 mg/dL (8.5-10.5); Carbon Dioxide 26 mmol/L (22-29); Chloride 108 mmol/L (98-107); Creatinine Clr Calc Pharmacy 45.3088; Globulin 2.3 g/dL (1.3-4.6); Glucose 140 mg/dL (65-115); Osmolality Calculated 294 mOsm/kg (285-295); Potassium 4.2 mmol/L (3.5-5.1); Sodium 141 mmol/L (136-145); Total Protein 6.5 g/dL (6.6-8.7)
[2025-05-28 11:20] LABS: Vitamin B12 509 pg/mL (232-1245)
[2025-06-04 10:10] LABS: Hematocrit 23.4 % (36-47); Hemoglobin 7.40 g/dL (11.27-16.99); Mean Corpuscular HGB Conc 31.6 g/dL (30-55); Mean Corpuscular Hemoglobin 30.1 pg (27-33); Mean Corpuscular Volume 95.1 fl (85-98); Nucleated Red Blood Cells % 0 %; Platelet Count 247 10^3/cmm (157-399); Red Blood Count 2.46 10^6/uL (3.85-5.65); White Blood Count 3.78 10^3/uL (3.29-11.43)
[2025-06-04 10:33] LABS: Alanine Aminotransferase 17 U/L (0-33); Albumin Level 4.4 g/dL (3.5-5.2); Alkaline Phosphatase 64 U/L (35-105); Anion Gap 14.0 (5-19); Aspartate Amino Transferase 11 U/L (0-32); Blood Urea Nitrogen 17 mg/dL (8-23); Calcium 9.4 mg/dL (8.5-10.5); Carbon Dioxide 24 mmol/L (22-29); Chloride 108 mmol/L (98-107); Creatinine Clr Calc Pharmacy 46.1250; Globulin 2.2 g/dL (1.3-4.6); Glucose 126 mg/dL (65-115); Osmolality Calculated 297 mOsm/kg (285-295); Potassium 4.0 mmol/L (3.5-5.1); Sodium 142 mmol/L (136-145); Total Protein 6.6 g/dL (6.6-8.7)
[2025-06-04 10:48] LABS: Vitamin B12 370 pg/mL (232-1245)
[2025-06-04 13:00] VITALS: BP 119/70; PULSE 66; RESP 17; TEMP 37.3; O2SAT 96
[2025-06-04 13:15] VITALS: BP 137/73; PULSE 67; RESP 17; TEMP 37.3; O2SAT 98
[2025-06-04 13:30] VITALS: BP 123/70; PULSE 69; RESP 17; TEMP 36.4; O2SAT 96
[2025-06-04 14:00] VITALS: BP 134/70; PULSE 67; RESP 18; TEMP 36.4; O2SAT 99
[2025-06-04] MEDS: luspatercept-aamt 75 mg 67.5 MG SUBCUT (15:11)
[2025-06-04 15:26] VITALS: BP 125/71; PULSE 75; RESP 16; TEMP 36.7; O2SAT 97
== END 2025-06-04 23:59 | disposition home or self-care (01) ==
PROVIDERS: Nurse Practitioner; PCP Family Medicine; Visit Provider Nurse Practitioner
DX: D46.9 Myelodysplastic syndrome, unspecified; D53.9 Nutritional anemia, unspecified; G62.9 Polyneuropathy, unspecified; Z87.891 Personal history of nicotine dependence; Z79.899 Other long term (current) drug therapy; Z53.9 Procedure and treatment not carried out, unspecified reason
CPT/HCPCS: 36415; 36430; 80053; 82607; 82746; 85025; 86850; 86900; 86920; 96372; 99213; 99214; J0896; J7050; J9999; P9016; P9040

== ENCOUNTER 2025-06-18 09:45 | Oncology outpatient (recurring) (ONCR) | payer MEDICARE, OTHER, SELFPAY ==
[2025-06-11 10:57] LABS: Hematocrit 25.9 % (36-47); Hemoglobin 8.40 g/dL (11.27-16.99); Mean Corpuscular HGB Conc 32.4 g/dL (30-55); Mean Corpuscular Hemoglobin 30.3 pg (27-33); Mean Corpuscular Volume 93.5 fl (85-98); Nucleated Red Blood Cells % 0.4 %; Platelet Count 226 10^3/cmm (157-399); Red Blood Count 2.77 10^6/uL (3.85-5.65); White Blood Count 4.74 10^3/uL (3.29-11.43)
[2025-06-11 11:22] LABS: Alanine Aminotransferase 17 U/L (0-33); Albumin Level 4.2 g/dL (3.5-5.2); Alkaline Phosphatase 72 U/L (35-105); Anion Gap 12.6 (5-19); Aspartate Amino Transferase 10 U/L (0-32); Blood Urea Nitrogen 22 mg/dL (8-23); Calcium 9.7 mg/dL (8.5-10.5); Carbon Dioxide 26 mmol/L (22-29); Chloride 105 mmol/L (98-107); Globulin 2.4 g/dL (1.3-4.6); Glucose 94 mg/dL (65-115); Osmolality Calculated 291 mOsm/kg (285-295); Potassium 4.6 mmol/L (3.5-5.1); Sodium 139 mmol/L (136-145); Total Protein 6.6 g/dL (6.6-8.7)
[2025-06-11 11:38] LABS: Vitamin B12 338 pg/mL (232-1245)
[2025-06-18 09:03] LABS: Hematocrit 25.2 % (36-47); Hemoglobin 8.10 g/dL (11.27-16.99); Mean Corpuscular HGB Conc 32.1 g/dL (30-55); Mean Corpuscular Hemoglobin 30.6 pg (27-33); Mean Corpuscular Volume 95.1 fl (85-98); Nucleated Red Blood Cells % 0.5 %; Platelet Count 306 10^3/cmm (157-399); Red Blood Count 2.65 10^6/uL (3.85-5.65); White Blood Count 5.48 10^3/uL (3.29-11.43)
[2025-06-18 09:26] LABS: Alanine Aminotransferase 20 U/L (0-33); Albumin Level 4.5 g/dL (3.5-5.2); Alkaline Phosphatase 74 U/L (35-105); Anion Gap 14.7 (5-19); Aspartate Amino Transferase 13 U/L (0-32); Blood Urea Nitrogen 15 mg/dL (8-23); Calcium 9.4 mg/dL (8.5-10.5); Carbon Dioxide 26 mmol/L (22-29); Chloride 107 mmol/L (98-107); Globulin 2.7 g/dL (1.3-4.6); Glucose 151 mg/dL (65-115); Osmolality Calculated 300 mOsm/kg (285-295); Potassium 4.7 mmol/L (3.5-5.1); Sodium 143 mmol/L (136-145); Total Protein 7.2 g/dL (6.6-8.7)
[2025-06-18 10:11] LABS: Slide Review Slide Review Perform
[2025-06-18 11:07] LABS: Glucose Urine UA Negative (Normal); Nitrate Urine Positive (Negative); Specific Gravity, Urine 1.012 (1.005-1.030)
[2025-06-18 11:36] LABS: Add Urine Microscopic? YES
== END 2025-06-18 23:59 | disposition home or self-care (01) ==
PROVIDERS: Internal Medicine Medical Oncology; PCP Family Medicine; Visit Provider Nurse Practitioner
DX: D46.9 Myelodysplastic syndrome, unspecified; D53.9 Nutritional anemia, unspecified; M79.604 Pain in right leg; Z87.891 Personal history of nicotine dependence; Z79.899 Other long term (current) drug therapy; Z53.9 Procedure and treatment not carried out, unspecified reason
CPT/HCPCS: 36415; 80053; 81001; 82607; 82746; 85025; 87077; 87086; 87186; 99214

== ENCOUNTER 2025-06-23 10:15 | Emergency (ER) | payer MEDICARE, OTHER, SELFPAY ==
[2025-06-23] VITALS (11 sets, daily range): BP systolic 115–157; BP diastolic 56–94; PULSE 58–88; RESP 15–17; TEMP 36.6–37; O2SAT 94–100; BMI 27.4
--- NOTE | 2025-06-23 10:17 | XRR_ITS ---
PROCEDURE INFORMATION: Exam: XR Chest Exam date and time: 06/23/2025 10:48 AM Age: 74 years old Clinical indication: Shortness of breath; Additional info: Weakness; SOB; Heart palpitations; Dizziness; HX myelodysplastic syndrome TECHNIQUE: Imaging protocol: Radiologic exam of the chest. Views: 1 view. COMPARISON: CR XR chest 1V portable [id number] 01/11/2025 11:42 AM FINDINGS: Lungs: Unremarkable. No consolidation. Pleural spaces: Unremarkable. No pleural effusion. No pneumothorax. Heart/Mediastinum: Unremarkable. No cardiomegaly. Bones/joints: Unremarkable. XR/XR chest 1V portable [id number] IMPRESSION: No acute findings.
--- NOTE | 2025-06-23 10:18 | ECG_ITS ---
[facility] Test Date: 2025-06-23 Pat Name: Dina Harrison Department: Room: Gender: Female [employer] Director: : 1950 Requested By: Flakita Lin Order Number: [id number] [place] MD: Magali Lou M.D. Measurements Intervals [place] Rate: 78 P: 64 ID: 145 QRS: 18 QRSD: 104 T: 51 QT: 379 QTc: 434 Interpretive Statements SINUS RHYTHM Compared to ECG 01/11/2025 13:39:12 No significant changes Electronically Signed On 06-23-2025 21:27:03 CDT by Magali Lou M.D. [email or web address]
--- OUTSIDE RECORDS SUMMARY | 2025-06-23 10:20 | XMS_ITS | Clinical Summary ---
Author Organization [facility] Address [address] [place] [address] Care Team Providers Care Simulation Software Engineer Name Role Phone Glory Katz Primary Care Provider Allergies Active Allergy Reactions Criticality Noted Date Comments Casein Nausea and Vomiting Low 10/27/2009 Codeine Hives,Shortness of Breath/Wheezing High 04/26/2012 Reaction: Unknown, Lactose Shortness of Breath/Wheezing High 08/28/2020 Latex Rash Medium 05/04/2017 Methylprednisolone Acetate Nausea and Vomiting,Hives High 12/04/2009 Milk Nausea and Vomiting,Shortness of Breath/Wheezing High 10/27/2009 Pain in upper right quadrant in back Nylon Rash Medium 10/27/2009 Prednisone Hives,Anxiety High 03/29/2011 Streptomycin Rash Medium 05/06/2008 Medications albuterol HFA 90 mcg inhaler Take 2 Puffs by inhalation every 6 hours as needed for Shortness of Breath or Wheezing. 8.5 Gram 2 09/04/20 20 Active oxybutynin chloride (DITROPAN XL) 10 mg Extended Release 24 hour tabletIndications :Mixed stress and urge urinary incontinence Take 1 Tablet (10 mg) by mouth daily. 30 Tablet 3 09/25/19 21 Active doxepin (SINEquan) 10 mg capsuleIndication s:Recurrent major depressive disorder, in full remission Take 1 Capsule (10 mg) by mouth daily. 30 Capsule 3 10/14/19 21 Active guaiFENesin (ROBITUSSIN) 100 mg/5 mL solutionIndicatio ns:Cough Take 10 mL (200 mg) by mouth every 4 hours as needed for Cough. 200 mL 1 12/11/19 21 Active levothyroxine (SYNTHROID) 50 mcg tabletIndications :Hypothyroidism, unspecified type Take 1 Tablet (50 mcg) by mouth daily. 30 Tablet 3 02/28/20 21 Active ergocalciferol (Vitamin D2) 50,000 unit capsuleIndication s:Vitamin D insufficiency Take 1 Capsule (50,000 Units) by mouth see administration instructions. Take 1 tab weekly x 8 weeks then take twice monthly after that. 16 Capsule 2 02/28/20 21 Active ferrous sulfate 325 mg (65 mg iron) tabletIndications :Iron deficiency anemia secondary to inadequate dietary iron intake Take 1 Tablet (325 mg) by mouth daily. 30 Tablet 3 02/28/20 21 Active Active Problems Problem Noted Date Diagnosed Date Lactose intolerance 07/25/2008 Hypothyroidism 05/06/2008 Overview (08/28/2020): Hypothyroidism Last Assessment & Plan: Medication usage discussed , side effects discussed, refills given and pt to f/u in 6 months Hypothyroidism, unspecified type GERD (gastroesophageal reflux disease) 8 Social History Tobacco Use Types Packs/Day Years Used Date Smoking Tobacco: Never Smokeless Tobacco: Never Alcohol Use Standard Drinks/Week Comments Yes 0 (1 standard drink = 0.6 oz pur e alcohol) Comments No Sex and Gender Information Value Date Recorded Sex Assigned at Not on file Legal Sex Female 3:27 PM CLINICAL SERVICES PROFESSIONAL Gender Identity Not on file Sexual Orientation Not on file Last Filed Vital Signs Vital Sign Reading Time Taken Comments Blood Pressure 136/68 12/10/2020 3:07 PM CDT Pulse 104 12/10/2020 3:07 PM CDT Temperature 36.8 C (98.3 F) 12/10/2020 3:07 PM CDT Respiratory Rate 18 10/13/2020 2:00 PM CLINICAL SERVICES PROFESSIONAL Oxygen Saturation 84% 12/10/2020 3:07 PM CDT Inhaled Oxygen Concentration - - Weight 69.9 kg (154 lb) 12/10/2020 3:07 PM CDT Height 162.6 cm (5' 4 ) 10/27/2020 3:12 PM CLINICAL SERVICES PROFESSIONAL Body Mass Index 26.43 10/27/2020 3:12 PM CLINICAL SERVICES PROFESSIONAL Plan of Treatment Health Maintenance Due Date Last Done Comments FIT/ DNA Q 3 YEARS (AUTO ORDER) 1970 FIT/FOBT Q 1 YEAR (AUTO ORDER) 1970 FLEX SIG/CT COLONOGRAPHY Q 5 YEARS (AUTO ORDER) 1970 PNEUMOCOCCAL VACCINE 50+ YEA RS (1 of 2 - PCV) 1971 Traditional Medicare (ACO) A nnual Wellness Visit 1971 FIT-DNA Q 3 years 1997 FIT/FOBT Q 1 year 1997 Flex Sig/CT Colonography Q 5 years 1997 ZOSTER VACCINE (1 of 2) 2002 RSV VACCINE (60+ or ) (1 - Risk 60-74 years 1-dose series) 2012 OSTEOPOROSIS SCREENING 2017 DTAP/TDAP/TD VACCINES (2 - Td or Tdap) 03/31/2022 INFLUENZA VACCINE (#1) 2025 12/10/2020, 2007 BREAST CANCER SCREENING 12/06/2025 12/06/2024, 09/23 COLORECTAL CANCER SCREENING (AUTO ORDER) 01/16/2034 01/17/2024 COLORECTAL SCREENING 01/16/2034 01/17/2024 Colorectal Cancer Screening (AUTO ORDER) 01/16/2034 Colorectal Cancer Screening 01/16/2034 Insurance MEDICARE PART A AND B [employer] Care Teams Simulation Software Engineer Relationship Specialty Start Date End Date Glory Katz DO [address] [place] [address] PCP - General Family Practice 09/25/20
--- OUTSIDE RECORDS SUMMARY | 2025-06-23 10:20 | XMS_ITS ---
Author Organization [facility] Address [address] [facility] [place] [address] Care Team Providers Care Rate Marker Name Role Phone GiannaGlory DO Primary Care Provider [phone] Active Problems Problem Noted Date Diagnosed Date Mild intermittent asthma without complication MDS (myelodysplastic syndrome), low grade 2024 Situational anxiety 01/27/2025 Moderate episode of recurrent major depressive d isorder 10/10/2024 Neuropathy of both upper extremities 03/12/2024 Leg swelling 03/12/2024 Moderate persistent asthma without complication 02/03/2024 Vitamin D deficiency 02/03/2024 Benign paroxysmal positional vertigo due to bilateral vestibular disorder 04/18/2022 Absolute anemia 03/28/2022 Stage 3a chronic kidney disease 03/28/2022 Chronic fatigue syndrome 03/28/2022 Lactose intolerance 07/25/2008 Acquired hypothyroidism 05/06/2008 Overview (03/25/2021): Hypothyroidism Last Assessment & Plan: Medication usage discussed , side effects discussed, refills given and pt to f/u in 6 months Hypothyroidism, unspecified type Gastroesophageal reflux disease without esophagi tis 05/06/2008 Current Treatment and Therapy Plans OP BLOOD PRODUCT TRANSFUSION* Plan Start Date:04/10/2025 Plan Provider:Jasmin Peters FNP Linked Problems MDS (myelodysplastic syndrom e), low grade (CMS/HCC) Treatment Medications No medications scheduled. Past Treatment and Therapy Plans BLOOD TRANSFUSION / THERAPEUTIC PHLEBOTOMY THERAPY PLAN Plan Name Start Date Discontinue Date Treatment Medications Discontinue Reason Plan Provider OP BLOOD PRODUCT TRANSFUSION 03/06/2025 04/09/2025 No medications scheduled. Therapy Complete Jasmin Peters, PIECER UP Resolved Problems Problem Noted Date Diagnosed Date Resolved Date Post-COVID chronic shortness of breath 02/03/2024 02/03/2024 Chronic cough 03/28/2022 08/22/2023
--- OUTSIDE RECORDS SUMMARY | 2025-06-23 10:20 | XMS_ITS | Encounter Summary ---
Author Organization [facility] Address [address] [place] [address] Care Team Providers Care Data Quality Consultant Name Role Phone Glory Katz DO Primary Care Provider [phone] Reason for Visit * Reason Onset Date Comments Question 08/26/2021 Encounter Details Date Type Department Care Team (Late st Contact Info) Description 08/26/2021 Telephone [facility] [address] [place] [address] Glory Katz DO [address] [facility] [place] [address] Question Social History Tobacco Use Types Packs/Day Years Used Date Smoking Tobacco: Never Smokeless Tobacco: Never Alcohol Use Standard Drinks/Week Comments Yes 0 (1 standard drink = 0.6 oz pur e alcohol) Comments No Sex and Gender Information Value Date Recorded Sex Assigned at Not on file Legal Sex Female 9:13 PM LASER/ELECTRO OPTICS TECHNICIAN Gender Identity Not on file Sexual Orientation Not on file COVID-19 Exposure Response Date Recorded In the last month, have you been in contact with someone who was confirmed or suspected to have Coronavirus / COVID-19? No / Unsure 07/28/2021 10:12 AM LASER/ELECTRO OPTICS TECHNICIAN documented as of this encounter Miscellaneous Notes * Telephone Encounter - Loli Garrison - 08/27/2021 4:53 PM CST Spoke with pt and gave [facility] # [phone]. Pt had no further questions. R/ELECTRO OPTICS TECHNICIAN * Telephone Encounter - Mackenzie Garcia - 08/26/2021 12:56 PM CST Patient calling in stating that the reason she canceled her previous appts for her breast biopsy was due to transportation. Patient would like to know if there [place] any [place]. Please call patient back at [phone] to advise further. R/ELECTRO OPTICS TECHNICIAN documented in this encounter Plan of Treatment Upcoming Encounters Date Type Department Care Team (Late st Contact Info) Description 07/01/2025 2:00 PM CDT Office Visit [facility] [address] [place] [address] Jasmin Peters ROUTER MACHINE OPERATOR [address] [place] [address] documented as of this encounter Visit Diagnoses Not on filedocumented in this encounter Additional Health Concerns Infection Onset Date Last Indicated Resolved Time R/O COVID-19 11/16/2021 11/16/2021 11/16/2021 9:50 PM LASER/ELECTRO OPTICS TECHNICIAN Influenza 11/16/2021 11/16/2021 02/02/2023 1:00 AM CDT R/O Respiratory 01/21/2022 01/21/2022 01/21/2022 1 0:13 PM CDT Parainfluenza 01/21/2022 01/21/2022 02/02/2023 1:0 0 AM CDT R/O Respiratory 03/23/2022 03/23/2022 03/23/2022 9 :41 PM CDT COVID-19 12/07/2023 12/07/2023 12/27/2023 1:16 AM CDT documented as of this encounter Care Teams Data Quality Consultant Relationship Specialty Start Date End Date Glory Katz DO [address] [place] [phone] PCP - General Family Practice 03/05/25 documented as of this encounter
--- OUTSIDE RECORDS SUMMARY | 2025-06-23 10:20 | XMS_ITS | Clinical Summary ---
Author Organization [facility] Address [address] [facility] [place] [address] Care Team Providers Care Government Clerk Name Role Phone Glory Katz Yaneth BRITO Primary Care Provider Allergies Active Allergy Reactions Criticality Noted Date Comments Casein Nausea and Vomiting Low 10/27/2009 Codeine Hives,Shortness of Breath/Wheezing High 04/26/2012 Reaction: Unknown, Lactose Shortness of Breath/Wheezing High 08/28/2020 Latex Rash Medium 05/04/2017 Loratadine Other (See Comments) 07/21/2023 Doziness Milk Nausea and Vomiting,Shortness of Breath/Wheezing High 10/27/2009 Pain in upper right quadrant in back Nylon Rash Medium 10/27/2009 Streptomycin Rash Medium 05/06/2008 Medications omeprazole (PriLOSEC) 20 mg Capsule, Delayed Release(E.C.)Indic ations:Gastroesoph ageal reflux disease without esophagitis Take 1 Capsule (20 mg) by mouth 2 times daily with meals. 180 Capsule 3 07/21/20 23 Active Additional Information Patient taking differently:20 mg OralDAILY PRN, Reported on 04/23/2025 albuterol sulfate HFA 90 mcg/actuation aerosol inhalerIndications :Moderate persistent asthma without complication Take 2 Puffs by inhalation every 6 hours as needed for Shortness of Breath. 20 Gram 3 08/22/20 23 Active cholecalciferol 1,250 mcg (50,000 unit) CapsuleIndications :Vitamin D deficiency Take 1 Capsule (50,000 Units) by mouth every 7 days. 26 Capsule 1 05/31/20 24 Active folic acid (FOLVITE) 1 mg tabletIndications: Other vitamin B12 deficiency anemia Take 1 Tablet (1 mg) by mouth daily. 90 Tablet 3 05/31/20 24 Active Synthroid 50 mcg tabletIndications: Acquired hypothyroidism TAKE 1 TABLET(50 MCG) BY MOUTH DAILY IN THE MORNING 90 Tablet 4 06/29/20 24 Active cyanocobalamin (VITAMIN B-12) 1,000 mcg/mL SolutionIndication s:Other vitamin B12 deficiency anemia,Neuropathy of both upper extremities Inject 1 mL (1,000 mcg) by intramuscular injection every 7 days. 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 02/03/2024 Chronic cough 03/28/2022 08/22/2023 Encounters Date Type Department Care Team Description 06/04/2025 External Device Data ST[facility] ABSTRACTION Provider, Abstract 05/21/2025 External Device Data ST[facility] ABSTRACTION Provider, Abstract 05/14/2025 External Device Data ST[facility] ABSTRACTION Provider, Abstract 04/24/2025 9:29 AM CDT - 04/24/2025 11:59 PM CDT Hospital Encounter [facility] [place] [address] [place] [phone] Glory Katz, DO Discharge Disposition: Home or Self Care 04/24/2025 8:00 AM CDT - 04/24/2025 11:59 PM CDT Hospital Encounter [facility] [address] [place] [address] Glory Katz, DO Discharge Disposition: Home or Self Care 04/24/2025 Orders Only [facility] [address] [place] [address] Glory Katz, Severe anemia (Primary Dx) 04/24/2025 Orders Only [facility] [address] [place] [address] Glory Katz, Severe anemia (Primary Dx) 04/23/2025 2:40 PM CDT Office Visit [facility] [address] [place] [address] Jo Zhang FNP MDS (myelodysplastic syndrome), low grade (CMS/HCC) (Primary Dx) 04/21/2025 Results Follow-Up [facility] [address] [place] [address] Glory Katz, VITAMIN B12 LEVEL 04/16/2025 9:20 AM CDT Office Visit [facility] [address] [place] [address] Glory Katz, MDS (myelodysplastic syndrome), low grade (CMS/HCC) (Primary Dx); Other vitamin B12 deficiency anemia; Acquired hypothyroidism; Mild intermittent asthma without complication; Gastroesophageal reflux disease without esophagitis 04/10/2025 9:42 AM CDT - 04/10/2025 11:59 PM CDT Hospital Encounter [facility] [place] [address] [place] [phone] Jasmin Peters, CONCRETE FINISHING MACHINE OPERATOR Discharge Disposition: Home or Self Care 04/10/2025 9:00 AM CDT - 04/10/2025 11:59 PM CDT Hospital Encounter [facility] [place] [address] [place] [address] Jasmin Peters FNP Discharge Disposition: Home or Self Care 04/09/2025 Telephone [facility] [place] [address] [place] [address] Jasmin Peters FNP Requesting Sooner Appointment; Patient Communication 04/09/2025 Results Follow-Up [facility] [address] [place] [address] Jasmin Peters FNP CBC WITH DIFFERENTIAL 04/08/2025 4:20 PM CDT Office Visit [facility] [address] [place] [address] Jasmin Peters FNP MDS (myelodysplastic syndrome), low grade (CMS/HCC) (Primary Dx); Subcutaneous mass of back; Other vitamin B12 deficiency anemia 04/05/2025 Results Follow-Up [facility] [address] [place] [address] Jasmin Peters FNP CBC WITH DIFFERENTIAL 04/04/2025 Orders Only [facility] [address] [place] [address] Jasmin Peters, CONCRETE FINISHING MACHINE OPERATOR Lump of skin of back 04/03/2025 External Device Data STL ABSTRACTION Provider, Abstract 04/03/2025 Orders Only [facility] [address] [place] [address] Provider, Abstract 04/02/2025 External Device Data STL ABSTRACTION Provider, Abstract 04/01/2025 4:00 PM CDT Office Visit [facility] [address] [place] [address] Jasmin Peters FNP MDS (myelodysplastic syndrome), low grade (CMS/HCC) (Primary Dx) 04/01/2025 Orders Only [facility] [address] [place] [place] [address] Provider, Abstract 03/25/2025 4:20 PM CDT Office Visit [facility] [address] [place] [facility] [place] [address] Jasmin Peters FNP MDS (myelodysplastic syndrome), low grade (CMS/HCC) (Primary Dx) 03/25/2025 Results Follow-Up [facility] [address] [place] [facility] [place] [phone] Jasmin Peters, DEMOND CBC WITH DIFFERENTIAL, TYPE AND SCREEN from Last 3 Months Immunizations Immunization Administration Dates Next Due (ADACEL/BOOSTRIX)(10 YR UP) TDAP VACCINE, 0.5ML, IM 03/31/2012 (PFIZER)(12 YR UP) COVID-19 VACCINE - EMERGENCY USE AUTHORIZATION, MRNA, [id number](PF) 30 MCG/0.3 ML IM SUSP 09/27/2022,10/14/2021,03/27/2021,2020 Hepatitis A Vaccine 04/04/2012 Hepatitis B Vaccine 05/12/2012,04/04/2012 Influenza Vaccine Tri Split 4+ Pf Im 07/25/2008 Family History Medical History Relation Name Comments Breast Cancer Maternal Aunt 1 Pancreatic Cancer Maternal Aunt 2 Breast Cancer Maternal Grandmother Breast Cancer Sister Ovarian Cancer Neg Hx Uterine Cancer Neg Hx Relation Name Status Comments Daughter NONE Maternal Aunt 1 Maternal Aunt 2 Maternal Grandmother Mother Sister Social History Tobacco Use Types Packs/Day Years Used Date Smoking Tobacco: Never Passive Smoke Exposure: Never Smokeless Tobacco: Never Tobacco Cessation:Counseling Given: No Alcohol Use Standard Drinks/Week Comments Yes 0 (1 standard drink = 0.6 oz pur e alcohol) Financial Resource Strain Answer Date R ecorded How hard is it for you to pa y for the very basics like food, housing, medical care, and heating? Somewhat hard 03/23/2022 Food Insecurity Answer Date Recorded In the past 12 months, have you worried that your food would run out before you had money to buy more? Sometimes true 2021 In the past 12 months, did y ou run out of food and didn't have money to buy more? Sometimes true 03/23/2022 Transportation Needs Answer Date Record ed In the past 12 months, has l ack of transportation kept you from medical appointments or from getting medications? Yes 03/23/2022 Lack of Transportation (Non-Medical) Not on file 03/23/2022 Comments No Sex and Gender Information Value Date Recorded Sex Assigned at Not on file Legal Sex Female 9:13 PM PREPARER Gender Identity Not on file Sexual Orientation Not on file Last Filed Vital Signs Vital Sign Reading Time Taken Comments Blood Pressure 117/56 04/24/2025 9:25 AM CDT Pulse 79 04/24/2025 9:25 AM CDT Temperature 35.9 C (96.7 F) 04/24/2025 9:25 AM CDT Respiratory Rate 18 04/24/2025 9:25 AM CDT Oxygen Saturation 98% 04/24/2025 9:25 AM CDT Inhaled Oxygen Concentration - - Weight 67.1 kg (148 lb) 04/23/2025 2:39 PM CDT Height 162.6 cm (5' 4 ) 04/23/2025 2:39 PM CDT Body Mass Index 25.4 04/23/2025 2:39 PM CDT Plan of Treatment Upcoming Encounters Date Type Department Care Team (Late st Contact Info) Description 07/01/2025 2:00 PM CDT Office Visit [facility] [place] [address] [place] [phone] Jasmin Peters, [facility] [address] [place] [address] Health Maintenance Due Date Last Done Comments FIT/ DNA Q 3 YEARS (AUTO ORDER) 1970 FIT/FOBT Q 1 YEAR (AUTO ORDER) 1970 FLEX SIG/CT COLONOGRAPHY Q 5 YEARS (AUTO ORDER) 1970 PNEUMOCOCCAL VACCINE 50+ YEA RS (1 of 2 - PCV) 1971 FIT-DNA Q 3 years 1997 FIT/FOBT Q 1 year 1997 Flex Sig/CT Colonography Q 5 years 1997 ZOSTER VACCINE (1 of 2) 2002 RSV VACCINE (60+ or ) (1 - Risk 60-74 years 1-dose series) 2012 OSTEOPOROSIS SCREENING 2017 DTAP/TDAP/TD VACCINES (2 - T d or Tdap) 03/31/2022 03/31/2012 INFLUENZA VACCINE (#1) 2025 12/10/2020, 2007 COVID-19 Vaccine (2024-2 6 season) 2025 09/27/2022, 10/14/2021, 03/27/2021, Additional history exists Traditional Medicare (ACO) A nnual Wellness Visit 06/01/2025 05/31/2024, 07/21/2023, 03/23/2022 BREAST CANCER SCREENING 12/06/2025 12/07/19, 09/23/2023, 05/05/2021, Additional history exists COLORECTAL CANCER SCREENING (AUTO ORDER) 01/16/2034 01/17/2024, 01/17/2024 COLORECTAL SCREENING 01/16/2034 01/17/2024, 01/17/20 24 Colorectal Cancer Screening (AUTO ORDER) 01/16/2034 Colorectal Cancer Screening 01/16/2034 Procedures Procedure Name Priority Date/Time Associated Diagnosis Comments DIFFERENTIAL, MANUAL Stat 04/24/2025 9:48 AM CDT Severe anemia CBC WITH DIFFERENTIAL Stat 04/24/2025 9:48 AM CDT Severe anemia TSH Routine 04/16/2025 10:34 AM CDT Acquired hypothyroidism VITAMIN B12 LEVEL Routine 04/16/2025 10: 34 AM CDT Other vitamin B12 deficiency anemia IRON, TIBC, AND PERCENT SATURATION Routine 04/16/2025 10:34 AM CDT MDS (myelodysplastic syndrome), low grade (CMS/HCC) Other vitamin B12 deficiency anemia CBC WITH DIFFERENTIAL Routine 04/16/2025 10:34 AM CDT MDS (myelodysplastic syndrome), low grade (CMS/HCC) Other vitamin B12 deficiency anemia PREPARE RED BLOOD CELLS Routine 04/10/2025 9:51 AM CDT MDS (myelodysplastic syndrome), low grade (CMS/HCC) TYPE AND SCREEN Stat 04/10/2025 9:42 AM CDT MDS (myelodysplastic syndrome), low grade (CMS/HCC) HEMOGLOBIN AND HEMATOCRIT Stat 04/10/2025 9:42 AM CDT MDS (myelodysplastic syndrome), low grade (CMS/HCC) CBC WITH DIFFERENTIAL Routine 04/08/2025 4:46 PM CDT MDS (myelodysplastic syndrome), low grade (CMS/HCC) CBC WITH DIFFERENTIAL Routine 04/03/2025 2:17 PM CDT MDS (myelodysplastic syndrome), low grade (CMS/HCC) US SUPERFICIAL NON EXTREMITY Routine 03/29/2025 Lump of skin of back MAMMO 3D HUBER SCREEN BILAT W OR WO CAD Routine 12/06/2024 3:16 PM CDT Screening mammogram, encounter for ENDOSCOPY, COLON, DIAGNOSTIC Routine 01/17/2024 1:59 PM CDT from Last 3 Months or Most Recently Relevant to Health Maintenance Results * (ABNORMAL) MANUAL DIFFERENTIAL (04/24/2025 9:48 AM CDT) SEGMENTED NEUTROPHILS 26(L) 45 - 70 % 04/24/2025 10:22 AM CDT [facility] LYMPHOCYTES RELATIVE 54(H) 20 - 45 % 04/24/2025 10:22 AM CDT [facility] ATYPICAL LYMPHOCYTES RELATIVE 2(H) <=0 % 04/24/2025 10:22 AM CDT [facility] MONOCYTES RELATIVE 16(H) 2 - 8 % 04/24/2025 10:22 AM CDT [facility] EOSINOPHILS RELATIVE 2 0 - 5 % 04/24/2025 10:22 AM T [facility] NEUTROPHILS ABSOLUTE COUNT 0.62(L) 1.78 - 5.38 K/uL 04/24/2025 10:22 AM [facility] LYMPHOCYTES ABSOLUTE 1.30 1.20 - 4.00 K/uL 04/24/2025 10:22 AM [facility] MONOCYTES ABSOLUTE 0.38 0.30 - 0.82 K/uL 04/24/2025 10:22 AM [facility] EOSINOPHILS ABSOLUTE 0.05 0.04 - 0.54 K/uL 04/24/2025 10:22 AM [facility] TOTAL CELLS COUNTED IN DIFF 50 04/24/2025 10:22 AM [facility] PLATELET EST. Consistent w Count 04/24/2025 10:22 AM [facility] ANISOCYTOSIS 1+ /hpf 04/24/2025 10:22 AM [facility] MACROCYTES 1+ /hpf 04/24/2025 10:22 AM [facility] HYPOCHROMIA 1+ /hpf 04/24/2025 10:22 AM [facility] Blood BLOOD SPECIMEN / Unknown Collection / Unknown 04/24/2025 9:48 AM CDT 04/24/2025 10:05 AM CDT us Glory Katz DO HEMATOLOGY ORDERABLES COM F inal Result [facility] CLIA # [id number] [address] [place] [address] * (ABNORMAL) CBC WITH DIFFERENTIAL (04/24/2025 9:48 AM CDT) Only the most recent of4 resultswithin the time period is included. WBC 2.4(L) 4.0 - 10.0 K/uL 04/24/2025 10:22 AM T [facility] RBC 2.94(L) 3.93 - 5.22 M/uL 04/24/2025 10:22 AM [facility] HEMOGLOBIN 9.2(L) 11.2 - 15.7 g/dL 04/24/2025 10:22 AM [facility] HEMATOCRIT 27.6(L) 34.1 - 44.9 % 04/24/2025 10:22 AM [facility] MCV 93.9 79.4 - 94.8 fL 04/24/2025 10:22 AM [facility] MCH 31.3 25.6 - 32.2 pg 04/24/2025 10:22 AM [facility] MCHC 33.3 32.2 - 35.5 g/dL 04/24/2025 10:22 AM [facility] RDW 19.8(H) 11.0 - 14.5 % 04/24/2025 10:22 AM [facility] RDW-STDEV 59.0(H) 36.9 - 56.9 fL 04/24/2025 10:22 AM [facility] PLATELETS 187 163 - 337 K/uL 04/24/2025 10:22 AM [facility] MPV 11.4 10.0 - 14.8 fL 04/24/2025 10:22 AM [facility] Blood BLOOD SPECIMEN / Unknown Collection / Unknown 04/24/2025 9:48 AM CDT 04/24/2025 10:05 AM CDT us Glory Katz DO HEMATOLOGY ORDERABLES Final Result [facility] CLIA # [id number] [address] [place] [address] * (ABNORMAL) IRON, TIBC, AND PERCENT SATURATION (04/16/2025 10:34 AM CDT) IRON 188(H) 45 - 160 mcg/dL [facility] TIBC 209(L) 250 - 450 mcg/dL (calc) [facility] IRON % SATURATION 90(H) 16 - 45 % (calc) [facility] Comment: Test Performed at: [facility] [address] Rui Willoughby MD Blood 04/16/2025 10:3 4 AM CDT 04/16/2025 10:34 AM CDT Glory Yaneth CisnerosGianna DO CHEMISTRY ORDERABLES Final Result Performing Organization Address City/[facility]/ZIP Co de Phone Number [facility] [phone] [facility] [employer] [address] [address] * TSH (04/16/2025 10:34 AM CDT) TSH 2.06 0.40 - 4.50 mIU/L [facility] Comment: FASTING:UNKNOWN FASTING: UNKNOWN Test Performed at: [facility] [address] Rui Willoughby MD Blood 04/16/2025 10:3 4 AM CDT 04/16/2025 10:34 AM CDT Glory Katz DO CHEMISTRY ORDERABLES Final Result Performing Organization Address City/[facility] Co de Phone Number [facility] [phone] [facility] [employer] [address] [address] * VITAMIN B12 LEVEL (04/16/2025 10:34 AM CDT) VITAMIN B12 507 200 - 1100 pg/mL [facility] Comment: FASTING:UNKNOWN FASTING: UNKNOWN Test Performed at: [facility] [address] Rui Willoughby MD Blood 04/16/2025 10:3 4 AM CDT 04/16/2025 10:34 AM CDT us Glory Yaneth Katz DO CHEMISTRY ORDERABLES Final Result [facility] [phone] [facility] [address] [address] [address] * TRANSFUSE RED BLOOD CELLS (04/10/2025 1:15 PM CDT) Jasmin Peters [facility] BLOOD TRANSFUSION ORDERABL ES Final Result * PREPARE RED BLOOD CELLS (04/10/2025 9:51 AM CDT) CROSSMATCH COMPATIBLE Compatible 04/10/2025 10:32 AM CDT [facility] NUMBER OF UNITS 1 04/10/2025 10:32 AM CDT [facility] PACKED RED BLOOD CELLS [id number] 04/10/2025 10:32 AM T [facility] BLOOD BANK PRODUCT [id number] 04/10/2025 10:32 AM CDT [facility] PRBC #1 - DONOR UNIT EXPIRATION 04/22/2025 04/10/2025 10:32 AM CDT [facility] PRBC #1 - DONOR UNIT TYPE O POS 04/10/2025 10:32 AM CDT [facility] POSITIVE AB SCREEN OR HISTORY? No 04/10/2025 10:32 AM T [facility] Other, specify 04/10/2025 9: 51 AM CDT 04/10/2025 9:51 AM CDT us Jasmin Peters CONCRETE FINISHING MACHINE OPERATOR LAB TRANSFUSION ORDERABLES Final Result [facility] CLIA # [id number] [address] [place] [address] * (ABNORMAL) HEMOGLOBIN AND HEMATOCRIT (04/10/2025 9:42 AM CDT) HEMOGLOBIN 7.2(L) 11.2 - 15.7 g/dL 04/10/2025 9:56 AM CDT [facility] HEMATOCRIT 21.7(L) 34.1 - 44.9 % 04/10/2025 9:56 AM CDT [facility] Blood BLOOD SPECIMEN / Unknown Collection / Unknown 04/10/2025 9:42 AM CDT 04/10/2025 9:52 AM CDT Jasmin Mej[facility] HEMATOLOGY ORDERABLES Magaly l Result [facility] CLIA # [id number] [address] [place] [address] * TYPE AND SCREEN (04/10/2025 9:42 AM CDT) ABO/RH TYPE O POS 04/10/2025 10:31 AM CDT [facility] ANTIBODY SCREEN Negative 04/10/2025 10:31 AM CDT [facility] Blood BLOOD SPECIMEN / Unknown Collection / Unknown 04/10/2025 9:42 AM CDT 04/10/2025 10:23 AM CDT Jasmin Peters [facility] BLOOD BANK ORDERABLES Magaly l Result Performing Organization Address [facility] Co de Phone Number [facility] CLIA # [id number] [address] [place] [address] * US SUPERFICIAL NON EXTREMITY (03/29/2025) Anatomical Region Laterality Modality Ultrasound Jasmin [facility] US ORDERABLES Final Resu lt * MAMMO 3D HUBER SCREEN BILAT W OR WO CAD (12/06/2024 3:16 PM CDT) Anatomical Region Laterality Modality Breast Bilateral Mammography, Dig ital Radiography Impressions 12/06/2024 7:16 PM CDT : No mammographic evidence of malignancy. BI-RADS ASSESSMENT: 1 - Negative RECOMMENDATION: Routine annual screening mammography. Narrative 12/06/2024 7:16 PM CDT EXAM: MAMMO SCRN BILAT 3D HUBER W OR WO CAD INDICATION: Screening COMPARISON: 09/23/2023 MAMMO PRIOR STUDY, 05/05/2021 MAMMO DIAG UNI RIGHT 3D HUBER W OR WO CAD, 04/08/2021 MAMMO SCREEN BILAT W OR WO CAD, and 05/15/2010 MAMMO PRIOR STUDY BREAST COMPOSITION: The breasts are heterogeneously dense, which may obscure small masses. FINDINGS: RIGHT BREAST: There are no suspicious masses, calcifications, or areas of architectural distortion. LEFT BREAST: There are no suspicious masses, calcifications, or areas of architectural distortion. Jasmin Peters CONCRETE FINISHING MACHINE OPERATOR MAMMO ORDERABLES Final Res ult * ENDOSCOPY, COLON, DIAGNOSTIC (01/17/2024 1:59 PM CDT) Abstract Provider GI PROCEDURE ORDERABLES Final Result from Last 3 Months or Most Recently Relevant to Health Maintenance Insurance [employer] Subscriber Plan / Payer (Ef fective 2021-Present) Name:Dina Harrison Relation to Subscriber:Self Name:Dina Harrison Payer ID:Not on file Group ID:Not on file Type:[facility] Address: [place] [id number] [place] [id number] MEDICARE PART A AND B Care Teams Government Clerk Relationship Specialty Start Date End Date Glory Katz DO [address] [place] [address] PCP - General Family Practice 03/05/25
--- NOTE | 2025-06-23 10:25 | W.ED.SOB ---
HPI - SOB/Dyspnea General: Chief Complaint: Shortness of Breath/Dyspnea Stated Complaint: weakness, dizzy, sob, increased hr Time Seen by Provider: 06/23/25 10:20 Source: patient Mode of arrival: ambulatory Limitations: no limitations History of Present Illness: HPI Narrative: 74-year-old female who has a history of myelodysplastic syndrome she states she gets anemic from that does receive transfusions had 1 2 weeks ago states that over the last 2 to 3 days she has been having some just general fatigue along with some shortness of breath with exertion she denies any cough she denies any fever states that she feels normal at rest. No history of DVT or pulmonary embolisms in past. She denies any chest pain states she is also currently has a UTI which she is on Cipro for. Related Data Home Medications ?Medication ?Instructions ?Recorded ?Confirmed omeprazole 20 mg capsule,delayed 20 mg PO BID PRN Acid Reflux 04/29/25 06/23/25 release Previous Rx's ?Medication ?Instructions ?Recorded levothyroxine 50 mcg tablet 50 mcg PO DAILY #90 tabs 05/06/20 (Synthroid) ciprofloxacin HCl 500 mg tablet 500 mg PO BID #14 tabs 06/18/25 Allergies Allergy/AdvReac Type Severity Reaction Status Date / Time milk Allergy Severe anaphylaxis Verified 06/18/25 10:02 nylon Allergy Severe rash Verified 06/18/25 10:02 gluten Allergy Intermediate ADR-Nausea Verified 06/18/25 10:02 codeine Allergy Unknown Verified 06/18/25 10:02 lactase (From [employer]) Allergy ALGY-Anaphy Verified 06/18/25 10:02 laxis latex AdvReac Mild UNKNOWN Verified 06/18/25 10:02 Review of Systems Resp: Reports: dyspnea PFSH ED PFSH: Medical History (Updated 06/23/25 @ 11:28 by Flakita Lin MD) Anemia Anemia, macrocytic Atypical pneumonia BV (bacterial vaginosis) STD exposure Vaginal discharge Dysuria Adjustment disorder Surgical History H/O tubal ligation History of mandibular surgery Family History Sister Breast cancer, Onset Age: 35 Thyroid disease Mother CAD (coronary artery disease) Stroke Thyroid disease Family/Other Breast cancer, Onset Age: 60 maternal aunt maternal great aunt Grandmother Breast cancer, Onset Age: 98 maternal Hypertension maternal Father Diabetes Denies family history of Clotting disorder Hyperlipidemia Anesthesia complication Bleeding disorder Social History Smoking and tobacco/nicotine status: former use of tobacco/nicotine Alcohol intake: current Alcohol intake frequency: few times a month Alcohol type: beer Substance/Drug Use: never Physical Exam Const: COMMON NORMALS: patient oriented x3 HENMT: COMMON NORMALS: normocephalic and atraumatic HEAD & SCALP: normocephalic and atraumatic Eye: COMMON NORMALS: Equal, round and reactive pupils present and EOMs intact bilaterally PUPIL: Yes Equal, round and reactive pupils present Neck/C-Spine: COMMON NORMALS: full ROM and supple Chest: COMMONS NORMALS: normal inspection of the chest and normal palpation of entire chest wall Resp: COMMON NORMALS: normal respiratory effort, No retractions, No use of accessory muscles and clear to auscultation bilaterally AUSCULTATION: clear to auscultation bilaterally Cardio: COMMON NORMALS: regular rate, regular rhythm and No murmurs present (Cardio) RATE: regular rate RHYTHM: regular rhythm GI: COMMON NORMALS: Normal to inspection, nondistended, normoactive bowel sounds present, Soft to palpation, non-tender and no masses PALPATION: Yes Soft to palpation Extremity: COMMON NORMALS: normal to inspection and full ROM Neuro: COMMON NORMALS: patient oriented x3, moves all extremities and no focal motor deficits Psych: COMMON NORMALS: mental status grossly normal, Normal thought process present and cooperative THOUGHT PROCESS: Normal thought process present Skin: COMMON NORMALS: no rashes or lesions noted and no wounds GENERAL SKIN EXAM: no rashes or lesions noted Course Vital Signs: Vital signs: Vital Signs Temperature 97.8 F 06/23/25 10:21 Pulse Rate 70 06/23/25 11:09 Respiratory Rate 17 06/23/25 10:21 Blood Pressure 122/70 06/23/25 11:09 Pulse Oximetry 96 06/23/25 11:09 Oxygen Delivery Me thod Room Air 06/23/25 11:09 MDM - SOB/Dyspnea Medical Decision Making Patient presents for shortness of breath serious etiologies as pneumonia pulmonary embolism and pneumothorax were in my differential. Patient's D-dimer here was negative believe the pulmonary embolism is unlikely x-ray chest was normal with no signs of pneumonia or pneumothorax. She does have multiple comorbidities including myelodysplastic syndrome and chronic anemia patient is anemic here with hemoglobin 6.9 this is likely causing her symptoms and she states she does feel like this when she gets anemic. Her vitals here been normal with a normal pulse ox we will transfuse 1 unit of blood here. She is stable for discharge. EKG was reviewed as normal sinus rhythm heart rate [address] elevation QRS 104 QTc 413. Chest x-ray was normal I did go over all these findings with her informed her she needs to follow-up with her oncology team next week she is return if worsening she understands agrees to plan Medical Records I reviewed the patient's medical records. Lab Data I reviewed the patient's lab results. 06/23/25 10:06/23/25 10:31 Labs/Radiology: Laboratory Results WBC 4.55 10^3/uL (3.29-11.43) 06/23/25 10: RBC 2.25 10^6/uL (3.85-5.65) L 06/23/25 10: Hgb 6.90 g/dL (11.27-16.99) L 06/23/25 10: Hct 21.1 % (36-47) L 06/23/25 10: MCV 93.8 fl (85-98) 06/23/25 10:31 MCH 30.7 pg (27-33) 06/23/25 10: MCHC 32.7 g/dL (30-55) 06/23/25 10: RDW 16.8 % (12.1-15.1) H 06/23/25 10:31 Plt Count 284 10^3/cmm (157-399) 06/23/25 10: MPV 11.4 fL (7.4-10.4) H 06/23/25 10:31 Neut % (Auto) 35.3 % 06/23/25 10:31 Lymph % (Auto) 37.4 % 06/23/25 10:31 [place] % (Auto) 25.3 % 06/23/25 10:31 Eos % (Auto) 0.9 % 06/23/25 10:31 Baso % (Auto) 0.4 % 06/23/25 10:31 Neut # (Auto) 1.61 10^3/uL (1.8-7.7) L 06/23/25 10:31 Lymph # (Auto) 1.7 10^3/uL (0.8-4.8) 06/23/25 10:31 [place] # (Auto) 1.2 10^3/uL (0.2-0.9) H 06/23/25 10:31 Eos # (Auto) 0.0 10^3/uL (0.0-0.8) 06/23/25 10:31 Baso # (Auto) 0.0 10^3/uL (0.0-0.1) 06/23/25 10:31 Nucleated RBC % (auto) 0.7 % 06/23/25 10: Nucleated RBCs # 0.0 /100WBC 06/23/25 10: PT 14.60 SECONDS (12.1-14.9) 06/23/25 10: INR 1.06 (0.8-1.2) 06/23/25 10:31 D-Dimer 0.28 ug/mLFEU (0-0.59) 06/23/25 10:31 Sodium 139 mmol/L (136-145) 06/23/25 10: Potassium 4.2 mmol/L (3.5-5.1) 06/23/25 10: Chloride 104 mmol/L (98-107) 06/23/25 10: Carbon Dioxide 21 mmol/L (22-29) L 06/23/25 10:31 Anion Gap 18.2 (5-19) 06/23/25 10:31 BUN 17 mg/dL (8-23) 06/23/25 10:31 Creatinine 1.1 mg/dL (0.5-0.9) H 06/23/25 10:31 GFR Calculation Not Reportable 06/23/25 10: Glucose 154 mg/dL (65-115) H 06/23/25 10: Calculated Osmolality 293 mOsm/kg (285-295) 06/23/25 10:31 Calcium 9.6 mg/dL (8.5-10.5) 06/23/25 10:31 Total Bilirubin 1.2 mg/dL (0.15-1.2) 06/23/25 10:31 AST 12 U/L (0-32) 06/23/25 10:31 ALT 17 U/L (0-33) 06/23/25 10:31 Alkaline Phosphatase 73 U/L (35-105) 06/23/25 10:31 NT-Pro-B Natriuret Pep 164 pg/mL (0-125) H 06/23/25 10:31 Total Protein 6.9 g/dL (6.6-8.7) 06/23/25 10:31 Albumin 4.5 g/dL (3.5-5.2) 06/23/25 10:31 Globulin 2.4 g/dL (1.3-4.6) 06/23/25 10:31 TSH 2.83 uIU/mL (0.27-4.20) 06/23/25 10:31 Blood Type O Positive 06/23/25 10:31 Rho(D) Type Rh positive 06/23/25 10: Antibody Screen Negative 06/23/25 10:31 Crossmatch See Detail 06/23/25 10:31 All radiology interpretation(s) finalized by discharge EKG Data EKG 1: I personally reviewed and interpreted this EKG as follows: EKG Interpretation Date: 06/23/25 EKG interpretation time: 10:22 Interpretation: nsr hr [address] elevation qrs 104 qtc 413 Discharge Plan Discharge Patient Disposition: Home Clinical Impression: Dyspnea Anemia Qualifiers: Anemia type: unspecified type Qualified Code(s): D64.9 - Anemia, unspecified Condition: Stable Prescriptions: No Action levothyroxine [Synthroid] 50 mcg tablet 50 mcg PO DAILY Qty: 90 1RF omeprazole 20 mg capsule,delayed release(DR/EC) 20 mg PO BID PRN (Reason: Acid Reflux) ciprofloxacin HCl 500 mg tablet 500 mg PO BID Qty: 14 0RF Discharge Orders: Discharge ED (Routine); Ordered 06/23/25 Ordered By: Flakita Lin Referrals: Glory Katz DO [Primary Care Provider, Family Practice] - 4-7 days Discharge Diet: Advance as tolerated Discharge Activity: Resume usual activity Patient Instructions: Anemia (ED) Print Language: Citizen Of [place] Coding Level of Care Code ED [employer] 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
[2025-06-23 10:39] LABS: Hematocrit 21.1 % (36-47); Hemoglobin 6.90 g/dL (11.27-16.99); Mean Corpuscular HGB Conc 32.7 g/dL (30-55); Mean Corpuscular Hemoglobin 30.7 pg (27-33); Mean Corpuscular Volume 93.8 fl (85-98); Nucleated Red Blood Cells % 0.7 %; Platelet Count 284 10^3/cmm (157-399); Red Blood Count 2.25 10^6/uL (3.85-5.65); White Blood Count 4.55 10^3/uL (3.29-11.43)
[2025-06-23 10:52] LABS: INR 1.06 (0.8-1.2); Prothrombin Time 14.60 SECONDS (12.1-14.9)
--- NOTE | 2025-06-23 11:08 | PC.NURSE ---
Nurse asked to do a straight cath for urine, pt states Absolutely not. I'll go pee later and give you a sample then.
[2025-06-23 11:13] LABS: Alanine Aminotransferase 17 U/L (0-33); Albumin Level 4.5 g/dL (3.5-5.2); Alkaline Phosphatase 73 U/L (35-105); Anion Gap 18.2 (5-19); Aspartate Amino Transferase 12 U/L (0-32); Blood Urea Nitrogen 17 mg/dL (8-23); Calcium 9.6 mg/dL (8.5-10.5); Carbon Dioxide 21 mmol/L (22-29); Chloride 104 mmol/L (98-107); Creatinine Clr Calc Pharmacy 41.7996; Globulin 2.4 g/dL (1.3-4.6); Glucose 154 mg/dL (65-115); NT Pro B Type Natriuretic Pept 164 pg/mL (0-125); Osmolality Calculated 293 mOsm/kg (285-295); Potassium 4.2 mmol/L (3.5-5.1); Sodium 139 mmol/L (136-145); Thyroid Stimulating Hormone 2.83 uIU/mL (0.27-4.20); Total Protein 6.9 g/dL (6.6-8.7)
--- NOTE | 2025-06-23 11:29 | PC.PHAR ---
Addendum entered by Mitali Thayer 06/23/25 11:32: Pt also states she would like to avoid taking any kind of steroids-has a negative effect on her mental health. Original Note: Pt states she goes to Oncology every 3 weeks and gets Luspatercept 1ml-Just done last Tuesday06/18/25. Pt state she gets Benadryl 25mg and Tylenol 500 prior to getting.
[2025-06-23] MEDS: diphenhydrAMINE 50 mg/mL SDV 1mL 25 MG IVP (11:49)
[2025-06-23 14:30] LABS: Add Urine Microscopic? NO
[2025-06-23 14:39] LABS: Glucose Urine UA Norm (Normal); Nitrate Urine Negative (Negative); Specific Gravity, Urine 1.005 (1.005-1.030)
[2025-06-23 14:40] LABS: Charge for UA Resulting for Rev
== END 2025-06-23 14:28 | disposition home or self-care (01) ==
PROVIDERS: Emergency Provider Emergency Medicine; PCP Family Medicine
DX: R06.00 Dyspnea, unspecified (principal); D64.9 Anemia, unspecified; Z87.891 Personal history of nicotine dependence
CPT/HCPCS: 36415; 36430; 71045; 80053; 81003; 83880; 84443; 85025; 85378; 85610; 86850; 86900; 86920; 93005; 96361; 96374; 99285; J1200; J7030; P9016

== ENCOUNTER 2025-06-25 08:36 | Oncology outpatient (recurring) (ONCR) | payer MEDICARE, OTHER, SELFPAY ==
[2025-06-25] VITALS (7 sets, daily range): BP systolic 121–129; BP diastolic 63–73; PULSE 60–75; RESP 17–18; TEMP 36.4–36.9; O2SAT 97–99
[2025-06-25 08:57] LABS: Hematocrit 23.9 % (36-47); Hemoglobin 7.80 g/dL (11.27-16.99); Mean Corpuscular HGB Conc 32.6 g/dL (30-55); Mean Corpuscular Hemoglobin 30.5 pg (27-33); Mean Corpuscular Volume 93.4 fl (85-98); Nucleated Red Blood Cells % 0 %; Platelet Count 265 10^3/cmm (157-399); Red Blood Count 2.56 10^6/uL (3.85-5.65); White Blood Count 5.03 10^3/uL (3.29-11.43)
[2025-06-25 09:53] LABS: Alanine Aminotransferase 14 U/L (0-33); Albumin Level 4.3 g/dL (3.5-5.2); Alkaline Phosphatase 67 U/L (35-105); Anion Gap 14.9 (5-19); Aspartate Amino Transferase 12 U/L (0-32); Blood Urea Nitrogen 19 mg/dL (8-23); Calcium 9.4 mg/dL (8.5-10.5); Carbon Dioxide 24 mmol/L (22-29); Chloride 106 mmol/L (98-107); Creatinine Clr Calc Pharmacy 46.0252; Globulin 2.4 g/dL (1.3-4.6); Glucose 138 mg/dL (65-115); Iron 208 ug/dL (37-145); Osmolality Calculated 296 mOsm/kg (285-295); Potassium 3.9 mmol/L (3.5-5.1); Sodium 141 mmol/L (136-145); Total Protein 6.7 g/dL (6.6-8.7); Vitamin B12 441 pg/mL (232-1245)
[2025-06-25 10:05] LABS: Ferritin 2209 ng/mL (15-150)
[2025-06-25 10:13] LABS: Total Iron Binding Capacity 225.00001 mcg/dl; Unsaturated Iron Binding > 17 ug/dL (112-347)
[2025-06-25] MEDS: luspatercept-aamt 25 mg 90.5 MG SUBCUT (13:11)
== END 2025-06-25 23:59 | disposition home or self-care (01) ==
PROVIDERS: Internal Medicine Medical Oncology; PCP Family Medicine; Visit Provider Nurse Practitioner
DX: D46.9 Myelodysplastic syndrome, unspecified (principal); D53.9 Nutritional anemia, unspecified; Z87.891 Personal history of nicotine dependence; Z79.899 Other long term (current) drug therapy
CPT/HCPCS: 36415; 36430; 80053; 82607; 82728; 83540; 83550; 85025; 86850; 86900; 86920; 96372; 99214; J0896; J7050; J9999; P9016

== ENCOUNTER 2025-07-16 08:28 | Oncology outpatient (recurring) (ONCR) | payer MEDICARE, OTHER, SELFPAY ==
[2025-07-02 10:34] LABS: Hematocrit 28.6 % (36-47); Hemoglobin 9.30 g/dL (11.27-16.99); Mean Corpuscular HGB Conc 32.5 g/dL (30-55); Mean Corpuscular Hemoglobin 30.4 pg (27-33); Mean Corpuscular Volume 93.5 fl (85-98); Nucleated Red Blood Cells % 0.4 %; Platelet Count 228 10^3/cmm (157-399); Red Blood Count 3.06 10^6/uL (3.85-5.65); White Blood Count 4.91 10^3/uL (3.29-11.43)
[2025-07-02 10:52] LABS: Alanine Aminotransferase 42 U/L (0-33); Albumin Level 4.2 g/dL (3.5-5.2); Alkaline Phosphatase 78 U/L (35-105); Anion Gap 14.6 (5-19); Aspartate Amino Transferase 23 U/L (0-32); Blood Urea Nitrogen 15 mg/dL (8-23); Calcium 9.1 mg/dL (8.5-10.5); Carbon Dioxide 25 mmol/L (22-29); Chloride 107 mmol/L (98-107); Creatinine Clr Calc Pharmacy 35.2143; Globulin 2.4 g/dL (1.3-4.6); Glucose 130 mg/dL (65-115); Osmolality Calculated 297 mOsm/kg (285-295); Potassium 4.6 mmol/L (3.5-5.1); Sodium 142 mmol/L (136-145); Total Protein 6.6 g/dL (6.6-8.7)
[2025-07-09] VITALS (11 sets, daily range): BP systolic 95–140; BP diastolic 60–83; PULSE 67–84; RESP 16–17; TEMP 36.7–37.4; O2SAT 95–97
[2025-07-09 11:51] LABS: Hematocrit 25.2 % (36-47); Hemoglobin 8.10 g/dL (11.27-16.99); Mean Corpuscular HGB Conc 32.1 g/dL (30-55); Mean Corpuscular Hemoglobin 30.1 pg (27-33); Mean Corpuscular Volume 93.7 fl (85-98); Nucleated Red Blood Cells % 0.4 %; Platelet Count 272 10^3/cmm (157-399); Red Blood Count 2.69 10^6/uL (3.85-5.65); White Blood Count 4.89 10^3/uL (3.29-11.43)
[2025-07-16 09:08] LABS: Hematocrit 30.7 % (36-47); Hemoglobin 9.80 g/dL (11.27-16.99); Mean Corpuscular HGB Conc 31.9 g/dL (30-55); Mean Corpuscular Hemoglobin 29.9 pg (27-33); Mean Corpuscular Volume 93.6 fl (85-98); Nucleated Red Blood Cells % 0.4 %; Platelet Count 223 10^3/cmm (157-399); Red Blood Count 3.28 10^6/uL (3.85-5.65); White Blood Count 5.22 10^3/uL (3.29-11.43)
[2025-07-16 09:54] LABS: Alanine Aminotransferase 23 U/L (0-33); Albumin Level 4.2 g/dL (3.5-5.2); Alkaline Phosphatase 82 U/L (35-105); Anion Gap 13.4 (5-19); Aspartate Amino Transferase 14 U/L (0-32); Blood Urea Nitrogen 23 mg/dL (8-23); Calcium 8.9 mg/dL (8.5-10.5); Carbon Dioxide 26 mmol/L (22-29); Chloride 107 mmol/L (98-107); Creatinine Clr Calc Pharmacy 41.4866; Globulin 2.5 g/dL (1.3-4.6); Glucose 110 mg/dL (65-115); Iron 217 ug/dL (37-145); Osmolality Calculated 298 mOsm/kg (285-295); Potassium 4.4 mmol/L (3.5-5.1); Sodium 142 mmol/L (136-145); Total Protein 6.7 g/dL (6.6-8.7); Vitamin B12 522 pg/mL (232-1245)
[2025-07-16] MEDS: luspatercept-aamt 25 mg 121 MG SUBCUT (10:23)
[2025-07-16 10:26] VITALS: BP 143/86; PULSE 86; RESP 16; TEMP 37.1; O2SAT 99
[2025-07-16 11:55] LABS: Total Iron Binding Capacity 234 mcg/dl; Unsaturated Iron Binding < 17 ug/dL (112-347)
[2025-07-16 12:13] LABS: Ferritin 2255 ng/mL (15-150)
== END 2025-07-16 23:59 | disposition home or self-care (01) ==
PROVIDERS: Internal Medicine Medical Oncology; PCP Family Medicine; Visit Provider Nurse Practitioner
DX: D46.9 Myelodysplastic syndrome, unspecified; D53.9 Nutritional anemia, unspecified; R03.0 Elevated blood-pressure reading, without diagnosis of hypertension; Z87.891 Personal history of nicotine dependence; Z79.899 Other long term (current) drug therapy; Z53.9 Procedure and treatment not carried out, unspecified reason
CPT/HCPCS: 36415; 36430; 80053; 82607; 82728; 82746; 83540; 83550; 85025; 86850; 86900; 86920; 96372; 99214; J0896; J7050; J9999; P9016

== ENCOUNTER 2025-08-06 08:30 | Oncology outpatient (recurring) (ONCR) | payer MEDICARE, OTHER, SELFPAY ==
[2025-07-23 09:19] LABS: Hematocrit 28.2 % (36-47); Hemoglobin 9.10 g/dL (11.27-16.99); Mean Corpuscular HGB Conc 32.3 g/dL (30-55); Mean Corpuscular Hemoglobin 30.7 pg (27-33); Mean Corpuscular Volume 95.3 fl (85-98); Nucleated Red Blood Cells % 0.6 %; Platelet Count 188 10^3/cmm (157-399); Red Blood Count 2.96 10^6/uL (3.85-5.65); White Blood Count 5.40 10^3/uL (3.29-11.43)
[2025-07-29] VITALS (9 sets, daily range): BP systolic 101–137; BP diastolic 63–80; PULSE 71–89; RESP 16–18; TEMP 36.3–37.5; O2SAT 95–99
[2025-07-29 10:37] LABS: Hematocrit 24.8 % (36-47); Hemoglobin 8.10 g/dL (11.27-16.99); Mean Corpuscular HGB Conc 32.7 g/dL (30-55); Mean Corpuscular Hemoglobin 30.6 pg (27-33); Mean Corpuscular Volume 93.6 fl (85-98); Nucleated Red Blood Cells % 0.6 %; Platelet Count 295 10^3/cmm (157-399); Red Blood Count 2.65 10^6/uL (3.85-5.65); White Blood Count 6.75 10^3/uL (3.29-11.43)
[2025-08-06 09:05] LABS: Hematocrit 29.0 % (36-47); Hemoglobin 9.50 g/dL (11.27-16.99); Mean Corpuscular HGB Conc 32.8 g/dL (30-55); Mean Corpuscular Hemoglobin 29.9 pg (27-33); Mean Corpuscular Volume 91.2 fl (85-98); Nucleated Red Blood Cells % 0.4 %; Platelet Count 245 10^3/cmm (157-399); Red Blood Count 3.18 10^6/uL (3.85-5.65); White Blood Count 5.60 10^3/uL (3.29-11.43)
[2025-08-06 09:36] LABS: Alanine Aminotransferase 39 U/L (0-33); Albumin Level 4.1 g/dL (3.5-5.2); Alkaline Phosphatase 77 U/L (35-105); Anion Gap 12.6 (5-19); Aspartate Amino Transferase 21 U/L (0-32); Blood Urea Nitrogen 19 mg/dL (8-23); Calcium 9.1 mg/dL (8.5-10.5); Carbon Dioxide 27 mmol/L (22-29); Chloride 106 mmol/L (98-107); Globulin 2.7 g/dL (1.3-4.6); Glucose 117 mg/dL (65-115); Iron 224 ug/dL (37-145); Osmolality Calculated 295 mOsm/kg (285-295); Potassium 4.6 mmol/L (3.5-5.1); Sodium 141 mmol/L (136-145); Total Protein 6.8 g/dL (6.6-8.7)
[2025-08-06 09:49] LABS: Ferritin 2632 ng/mL (15-150)
[2025-08-06 09:51] LABS: Vitamin B12 627 pg/mL (232-1245)
[2025-08-06 10:10] LABS: Total Iron Binding Capacity 241 mcg/dl; Unsaturated Iron Binding < 17 ug/dL (112-347)
== END 2025-08-06 23:59 | disposition home or self-care (01) ==
PROVIDERS: PCP Family Medicine; Visit Provider Nurse Practitioner
DX: D46.9 Myelodysplastic syndrome, unspecified; R03.0 Elevated blood-pressure reading, without diagnosis of hypertension; D53.9 Nutritional anemia, unspecified; Z79.899 Other long term (current) drug therapy; Z53.9 Procedure and treatment not carried out, unspecified reason
CPT/HCPCS: 36415; 36430; 80053; 82607; 82728; 82746; 83540; 83550; 85025; 86850; 86900; 86920; 96372; 99214; J0896; J7050; J9999; P9016

== ENCOUNTER 2025-08-13 11:23 | Oncology outpatient (recurring) (ONCR) | payer MEDICARE, OTHER, SELFPAY ==
[2025-08-13 12:31] LABS: Hematocrit 25.7 % (36-47); Hemoglobin 8.40 g/dL (11.27-16.99); Mean Corpuscular HGB Conc 32.7 g/dL (30-55); Mean Corpuscular Hemoglobin 30.3 pg (27-33); Mean Corpuscular Volume 92.8 fl (85-98); Nucleated Red Blood Cells % 0.4 %; Platelet Count 208 10^3/cmm (157-399); Red Blood Count 2.77 10^6/uL (3.85-5.65); White Blood Count 7.16 10^3/uL (3.29-11.43)
[2025-08-13] MEDS: deferoxamine 2 GM in sodium chloride 0.9% 250 ML IV (13:21)
[2025-08-13 13:50] VITALS: BP 127/77; PULSE 63; RESP 17; TEMP 37.4; O2SAT 98
[2025-08-13 14:05] VITALS: BP 131/79; PULSE 68; RESP 16; TEMP 37.1; O2SAT 98
[2025-08-13 14:20] VITALS: BP 120/76; PULSE 80; RESP 16; TEMP 37.5; O2SAT 95
[2025-08-13 14:50] VITALS: BP 100/63; PULSE 76; RESP 16; TEMP 36.5; O2SAT 95
[2025-08-13 15:30] VITALS: BP 132/72; PULSE 75; RESP 16; TEMP 36.8; O2SAT 95
[2025-08-13 16:32] VITALS: BP 132/72; PULSE 75; RESP 16; TEMP 36.8; O2SAT 95
== END 2025-08-18 23:59 | disposition home or self-care (01) ==
PROVIDERS: Nurse Practitioner Family; PCP Family Medicine; Visit Provider Nurse Practitioner
DX: D53.9 Nutritional anemia, unspecified (principal); D46.9 Myelodysplastic syndrome, unspecified; Z79.899 Other long term (current) drug therapy
CPT/HCPCS: 36415; 36430; 85025; 86850; 86900; 86920; 96365; 96366; J0895; J7050; J9999; P9016

== ENCOUNTER 2025-08-27 12:30 | Oncology outpatient (recurring) (ONCR) | payer MEDICARE, OTHER, SELFPAY ==
[2025-08-22 11:06] LABS: Hematocrit 24.5 % (36-47); Hemoglobin 8.20 g/dL (11.27-16.99); Mean Corpuscular HGB Conc 33.5 g/dL (30-55); Mean Corpuscular Hemoglobin 30.7 pg (27-33); Mean Corpuscular Volume 91.8 fl (85-98); Nucleated Red Blood Cells % 0.5 %; Platelet Count 208 10^3/cmm (157-399); Red Blood Count 2.67 10^6/uL (3.85-5.65); White Blood Count 5.96 10^3/uL (3.29-11.43)
[2025-08-22 13:07] VITALS: BP 138/75; PULSE 80; RESP 16; TEMP 36.9; O2SAT 96
[2025-08-22 13:28] VITALS: BP 123/83; PULSE 83; RESP 16; TEMP 36.9; O2SAT 92
[2025-08-22 13:43] VITALS: BP 122/72; PULSE 81; RESP 16; TEMP 36.3; O2SAT 93
[2025-08-22 14:50] VITALS: BP 131/62; PULSE 71; RESP 16; TEMP 37.1; O2SAT 98
[2025-08-22 15:38] VITALS: BP 143/68; PULSE 69; RESP 16; TEMP 36.9; O2SAT 95
[2025-08-22 15:56] VITALS: BP 143/68; PULSE 69; RESP 16; TEMP 36.9; O2SAT 95
[2025-08-27 10:14] LABS: Hematocrit 27.8 % (36-47); Hemoglobin 9.20 g/dL (11.27-16.99); Mean Corpuscular HGB Conc 33.1 g/dL (30-55); Mean Corpuscular Hemoglobin 29.9 pg (27-33); Mean Corpuscular Volume 90.3 fl (85-98); Nucleated Red Blood Cells % 0 %; Platelet Count 189 10^3/cmm (157-399); Red Blood Count 3.08 10^6/uL (3.85-5.65); White Blood Count 4.72 10^3/uL (3.29-11.43)
[2025-08-27 10:38] LABS: Alanine Aminotransferase 23 U/L (0-33); Albumin Level 4.4 g/dL (3.5-5.2); Alkaline Phosphatase 76 U/L (35-105); Anion Gap 15.0 (5-19); Aspartate Amino Transferase 19 U/L (0-32); Blood Urea Nitrogen 18 mg/dL (8-23); Calcium 9.3 mg/dL (8.5-10.5); Carbon Dioxide 25 mmol/L (22-29); Chloride 104 mmol/L (98-107); Globulin 2.5 g/dL (1.3-4.6); Glucose 157 mg/dL (65-115); Osmolality Calculated 295 mOsm/kg (285-295); Potassium 4.0 mmol/L (3.5-5.1); Sodium 140 mmol/L (136-145); Total Protein 6.9 g/dL (6.6-8.7)
== END 2025-08-27 23:59 | disposition home or self-care (01) ==
PROVIDERS: Nurse Practitioner Family; PCP Family Medicine; Visit Provider Nurse Practitioner
DX: Z53.9 Procedure and treatment not carried out, unspecified reason (principal); D53.9 Nutritional anemia, unspecified; R03.0 Elevated blood-pressure reading, without diagnosis of hypertension; D46.9 Myelodysplastic syndrome, unspecified; Z79.899 Other long term (current) drug therapy
CPT/HCPCS: 36415; 36430; 80053; 85025; 86850; 86900; 86920; 96372; 99214; J0896; J7050; J9999; P9016

== ENCOUNTER 2025-09-17 12:08 | Oncology outpatient (recurring) (ONCR) | payer MEDICARE, OTHER, SELFPAY ==
[2025-09-03 13:42] LABS: Hematocrit 23.4 % (36-47); Hemoglobin 7.60 g/dL (11.27-16.99); Mean Corpuscular HGB Conc 32.5 g/dL (30-55); Mean Corpuscular Hemoglobin 30.2 pg (27-33); Mean Corpuscular Volume 92.9 fl (85-98); Nucleated Red Blood Cells % 0.7 %; Platelet Count 206 10^3/cmm (157-399); Red Blood Count 2.52 10^6/uL (3.85-5.65); White Blood Count 8.16 10^3/uL (3.29-11.43)
[2025-09-04] VITALS (10 sets, daily range): BP systolic 131–149; BP diastolic 75–86; PULSE 57–79; RESP 16–18; TEMP 36.6–37.1; O2SAT 95–100
[2025-09-17 12:37] LABS: Hematocrit 31.3 % (36-47); Hemoglobin 10.00 g/dL (11.27-16.99); Mean Corpuscular HGB Conc 31.9 g/dL (30-55); Mean Corpuscular Hemoglobin 29.2 pg (27-33); Mean Corpuscular Volume 91.3 fl (85-98); Nucleated Red Blood Cells % 0 %; Platelet Count 221 10^3/cmm (157-399); Red Blood Count 3.43 10^6/uL (3.85-5.65); White Blood Count 8.30 10^3/uL (3.29-11.43)
[2025-09-17 12:59] LABS: Alanine Aminotransferase 44 U/L (0-33); Albumin Level 4.4 g/dL (3.5-5.2); Alkaline Phosphatase 74 U/L (35-105); Anion Gap 18.0 (5-19); Aspartate Amino Transferase 20 U/L (0-32); Blood Urea Nitrogen 17 mg/dL (8-23); Calcium 9.8 mg/dL (8.5-10.5); Carbon Dioxide 24 mmol/L (22-29); Chloride 103 mmol/L (98-107); Globulin 2.3 g/dL (1.3-4.6); Glucose 139 mg/dL (65-115); Osmolality Calculated 296 mOsm/kg (285-295); Potassium 4.0 mmol/L (3.5-5.1); Sodium 141 mmol/L (136-145); Total Protein 6.7 g/dL (6.6-8.7)
[2025-09-17 13:42] LABS: Ferritin 3581 ng/mL (15-150)
== END 2025-09-18 23:59 | disposition home or self-care (01) ==
PROVIDERS: Nurse Practitioner; PCP Family Medicine; Visit Provider Nurse Practitioner Family
DX: D46.9 Myelodysplastic syndrome, unspecified; D53.9 Nutritional anemia, unspecified; R03.0 Elevated blood-pressure reading, without diagnosis of hypertension; Z79.899 Other long term (current) drug therapy; Z53.9 Procedure and treatment not carried out, unspecified reason
CPT/HCPCS: 36415; 36430; 80053; 82728; 85025; 86850; 86900; 86920; 96372; 99214; J0896; J7050; J9999; P9016